=== PATIENT | male | born 1950 | race Caucasian/White ===

== ENCOUNTER → 2018-12-22 | Outpatient (CLI) | payer MEDICARE ==
--- NOTE | 2018-12-22 10:22 | CT ---
EXAMINATION TYPE: CT angio neck DATE OF EXAM: 12/22/2018 HISTORY: Occlusion and stenosis of unspecified carotid COMPARISON: None CT DLP: 467 mGycm. Automated Exposure Control for Dose Reduction was Utilized. TECHNIQUE: CTA scan of the neck is performed with IV Contrast, patient injected with 65 mL of Isovue 370, axial images are obtained, coronal and sagittal reformatted images are reviewed. Three-D recons tructed images are created on an independent workstation and reviewed. FINDINGS: Diffuse atherosclerotic plaque involving the aortic arch and origins of the great vessels w ith mild changes seen at the origin of the left common carotid artery. [id number] plaque involv ing the brachiocephalic artery. There is approximate 70% stenosis of the left subclavian artery proxi mal to the vertebral artery origin Right carotid artery mild atherosclerotic plaque in the common carotid artery. There is an approximat e 65-70% stenosis involving the right carotid bulb and approximately 80% focal stenosis involving the proximal right ICA. Left carotid artery: There is significant atherosclerotic plaque of the distal left common carotid ar minna with a suspected stenosis of 70-80% proximal to the carotid bulb. At the level the carotid bulb there is severe atherosclerotic changes with greater than 80% stenosis. There is multilevel degenerative disc disease and hypertrophic changes of the spine. Multilevel facet arthropathy and posterior spondylosis. Multilevel foraminal encroachment. Thyroid enhances normally. Sternotomy wires are seen. Lung apices are clear. Left-sided cardiac devic e is seen. IMPRESSION: 1. Approximately 70-80% stenosis of the distal left common carotid artery. 2. Severe atherosclerotic change involving the left carotid bulb and bifurcation including the left p roximal ICA with a greater stenosis measuring greater than 80% compatible severe stenosis. 3. There is an approximate 65-70% stenosis involving the right carotid bulb and approximately 80% foc al stenosis involving the proximal right ICA. 4. Approximately 70% stenosis of the proximal left subclavian artery.
== END | disposition home or self-care (01) ==
LOC: RADCTMAIN 07:50
PROVIDERS: ATTEND Internal Medicine Pulmonary Disease
DX: I65.23 Occlusion and stenosis of bilateral carotid arteries (principal)
CPT/HCPCS: 82565; 84520; 70498; Q9967

== ENCOUNTER → 2019-07-10 | Outpatient (CLI) | payer MEDICARE ==
[2019-07-10 17:38] LABS: Chol/HDL Ratio 1.77; Cholesterol 129 mg/dL (0-200); Triglycerides <50.0 mg/dL (0.0-149.0); VLDL Calculation 9.98 mg/dL (5.00-40.00)
== END | disposition home or self-care (01) ==
LOC: LABWHC1 08:00
PROVIDERS: ATTEND Internal Medicine Clinical Cardiac Electrophysiology
DX: I65.29 Occlusion and stenosis of unspecified carotid artery (principal)
CPT/HCPCS: 36415; 80061

== ENCOUNTER → 2020-10-07 | Outpatient (CLI) | payer MEDICARE ==
[2020-10-07 08:21] LABS: HCT 46.6 % (39.0-53.0); HGB 15.1 gm/dL (13.0-17.5); MCH 33.3 pg (25.0-35.0); MCHC 32.4 g/dL (31.0-37.0); MCV 102.7 fL (80.0-100.0); Macrocytosis Slight; Platelet Count 203 k/uL (150-450); RBC 4.54 m/uL (4.30-5.90); RDW 12.5 % (11.5-15.5); WBC 7.8 k/uL (3.8-10.6)
[2020-10-07 08:39] LABS: Potassium 4.8 mmol/L (3.5-5.1)
== END | disposition home or self-care (01) ==
LOC: LABPAT 07:43
PROVIDERS: ATTEND Internal Medicine Interventional Cardiology
DX: Z01.818 Encounter for other preprocedural examination (principal); I25.5 Ischemic cardiomyopathy
CPT/HCPCS: 36415; 80051; 82565; 84520; 85027

== ENCOUNTER 2020-10-13 06:23 | Day surgery (SDC) | payer MEDICARE ==
[2020-10-10 11:07] VITALS: BMI 31.4
[~2020-10-13 06:23] MED LIST: ALPRAZolam 0.25 MG TAB PO PRN; ALPRAZolam 0.5 MG TAB PO PRN; ASPIRIN 325 MG TAB PO STA; NITROGLYCERIN SL TABS 0.4 MG TAB SUBLINGUAL PRN; SODIUM CHLORIDE 0.9% 1,000 ML in EMPTY BAG 1 BAG IV ONE
[2020-10-13] MEDS ORDERED: ASPIRIN 81 MG ONE (06:38)
[2020-10-13] MEDS ORDERED: SODIUM CHLORIDE 0.9% 1,000 ML IV ONE (06:41)
[2020-10-13 06:57] VITALS: RESP 16; TEMP 97.9
[2020-10-13] MEDS ORDERED: LIDOCAINE 1% INJ 10MG/ML (20 ML MDV) ONE (07:15)
[2020-10-13] MEDS ORDERED: fentaNYL (PF) 50 MCG/ML 2 ML AMP IV ONE (07:45)
[2020-10-13] MEDS ORDERED: LIDOCAINE 1% INJ 10MG/ML (20 ML MDV) SQ ONE (07:47)
[2020-10-13] MEDS ORDERED: IOPAMIDOL-370 100ML BTL INJ ONE (08:14)
[2020-10-13] MEDS ORDERED: IOPAMIDOL-370 125ML BTL INJ ONE (08:14)
[2020-10-13] MEDS ORDERED: RX INFO: IV CONTRAST WAS GIVEN 1 EACH MISC MISCELLANE PRN (08:32)
[2020-10-13] MEDS ORDERED: NON FORMULARY DRUG (Omalizumab 150 MG Vial) SQ SCH (08:45)
[2020-10-13] MEDS ORDERED: SODIUM CHLORIDE 0.9% 1,000 ML IV SCH (08:45)
--- NOTE | 2020-10-13 09:07 | CC ---
CARDIAC CATHETERIZATION REPORT Mr. Childers is a 70-year-old male with known history of coronary artery disease, status post coronary artery bypass grafting, history of cardiomyopathy who has been complaining of episode of jaw discomfort with activity, was evaluated by Dr. Orozco, recommendation made regarding cardiac catheterization. The procedures, risks, and complication were discussed with the patient who is in full understanding and agreement. PROCEDURE: Patient was brought to malthouse laborer in a fasting semi-sedated state after receiving fentanyl and Benadryl and using Xylocaine anesthesia and Seldinger technique, a 6- Moroccan sheath was introduced in the right femoral artery. Selective right and left coronary angiography performed using 6-Moroccan right and left De catheter, multiple views of the coronary artery including hemiaxial views were obtained. The right De was used to cannulate the radial bypass as well as saphenous vein graft. Subsequently an ASHLEE catheter was introduced and the images of the HUGHES were obtained. The left De was used to cross the aortic valve and left ventricular end- diastolic pressure was calculated. following that catheter and sheath were removed. Hemostasis was obtained with compression of the right groin. There was no immediate complication. Patient was returned to his room in stable condition. FINDINGS: 1. FLUOROSCOPY: There was severe calcification involving all the coronary arteries. 2. LEFT MAIN: This is a large-sized vessel, bifurcating into left circumflex, left anterior descending artery. Left main coronary artery has 20% to 30% plaque distally. The rest of the vessel has no high-grade stenosis. 3. LEFT ANTERIOR DESCENDING ARTERY: This vessel is totally occluded proximally with no antegrade flow. The vessel is heavily calcified. 4. LEFT CIRCUMFLEX: This is a nondominant vessel. The AV groove left circumflex is patent. The obtuse marginal branch is totally occluded. The left circumflex gives collaterals to the right PDA. 5. RIGHT CORONARY ARTERY: The right coronary artery is totally occluded proximally. 6. HUGHES TO THE DIAGONAL BRANCH: The distal anastomotic site is patent. The flow into the diagonal branch is brisk. There is retrograde flow into the LAD. 7. SAPHENOUS VEIN GRAFT TO THE OBTUSE MARGINAL BRANCH: The proximal distal anastomotic sites are patent. The flow into the high obtuse marginal branch is brisk. There is retrograde flow into the second and third obtuse marginal branch. The stented segment in the proximal vessel is patent. There is a mild plaque of 20% to 30%. The rest of the vessel has no high-grade stenosis. 8. SAPHENOUS VEIN GRAFT TO THE RIGHT CORONARY ARTERY: This graft is totally occluded proximally. 9. RADIAL BYPASS TO THE LAD: The caliber of the graft is very small and there is minimal antegrade flow. 10.HEMODYNAMICS: There was no gradient across the aortic valve. The left ventricular end-diastolic pressure was 16 to 18 mmHg. 11.Right common femoral artery angiography revealed a total occlusion of the SFA. CONCLUSION: 1. Heavily calcified coronary artery. 2. Chronically occluded LAD and right coronary artery as well as s obtuse marginal branch. 3. Patent HUGHES to the diagonal. 4. Patent saphenous vein graft to the obtuse marginal branch. 5. Totally occluded saphenous vein graft to the right coronary artery. 6. Atretic radial bypass to the LAD. 7. Peripheral vascular disease. RECOMMENDATION: At this time, I see no evidence of significant progression of disease compared with the images obtained in 2014. Maximize his medical therapy. If he continues to have symptoms, then he should be evaluated for a high risk revascularization of a chronically occluded LAD. I have discussed those findings and recommendation with the patient and his family and they are in full understanding and agreement. Duration of the sedation is 43 minutes. MMODL / IJN: [id number] / MTDManish
[2020-10-13] MEDS ORDERED: MAGNESIUM OXIDE 400 MG TAB PO SCH (12:00)
[2020-10-13] MEDS ORDERED: METOPROLOL SUCCINATE (ER) 25 MG TAB.ER.24H PO SCH (12:00)
[2020-10-13] MEDS ORDERED: TAMSULOSIN 0.4 MG CAP.ER.24H PO SCH (13:30)
[2020-10-13 16:03] VITALS: BP 152/78; PULSE 56
[2020-10-13] MEDS ORDERED: BUDESONIDE 0.5 MG/2 ML NEBU INHALATION SCH (20:00)
[2020-10-13] MEDS ORDERED: IPRATROPIUM-ALBUTEROL 3 ML NEB INHALATION SCH (20:00)
[2020-10-13] MEDS ORDERED: traMADol 50 MG TAB PO SCH (21:00)
[2020-10-13] MEDS ORDERED: ATORVASTATIN 80 MG TAB PO SCH (21:00)
[2020-10-13] MEDS ORDERED: MONTELUKAST 10 MG TAB PO SCH (21:00)
[2020-10-14] MEDS ORDERED: SPIRONOLACTONE 25 MG TAB PO SCH (09:00)
[2020-10-14] MEDS ORDERED: ISOSORBIDE MONONITRATE ER 60 MG TAB.ER.24H PO SCH (09:00)
[2020-10-14] MEDS ORDERED: CLOPIDOGREL 75 MG TAB PO SCH (09:00)
[2020-10-14] MEDS ORDERED: ASPIRIN 81 MG PO SCH (09:00)
== END 2020-10-13 16:03 | disposition home or self-care (01) ==
LOC: CATHCVL 06:23
PROVIDERS: ATTEND Internal Medicine Interventional Cardiology
DX: I25.700 Atherosclerosis of coronary artery bypass graft(s), unspecified, with unstable angina pectoris (principal); I25.110 Atherosclerotic heart disease of native coronary artery with unstable angina pectoris; I25.82 Chronic total occlusion of coronary artery; I70.92 Chronic total occlusion of artery of the extremities; I70.201 Unspecified atherosclerosis of native arteries of extremities, right leg; I25.5 Ischemic cardiomyopathy; I10 Essential (primary) hypertension; I25.2 Old myocardial infarction; E78.00 Pure hypercholesterolemia, unspecified; J44.9 Chronic obstructive pulmonary disease, unspecified; I65.23 Occlusion and stenosis of bilateral carotid arteries; E78.5 Hyperlipidemia, unspecified; I44.7 Left bundle-branch block, unspecified; E66.3 Overweight; Z95.1 Presence of aortocoronary bypass graft; Z95.810 Presence of automatic (implantable) cardiac defibrillator; Z72.0 Tobacco use; Z79.899 Other long term (current) drug therapy; Z79.51 Long term (current) use of inhaled steroids; Z79.1 Long term (current) use of non-steroidal anti-inflammatories (NSAID); Z79.82 Long term (current) use of aspirin; Z79.02 Long term (current) use of antithrombotics/antiplatelets; Z68.31 Body mass index [BMI] 31.0-31.9, adult; Z82.49 Family history of ischemic heart disease and other diseases of the circulatory system
CPT/HCPCS: 93459; C1769 ×2; C1894; J2001; J3010; Q9967 ×2

== ENCOUNTER → 2021-02-04 | Outpatient (CLI) | payer MEDICARE ==
[2021-02-04 10:33] LABS: HCT 43.3 % (39.0-53.0); HGB 14.5 gm/dL (13.0-17.5); MCH 34.4 pg (25.0-35.0); MCHC 33.6 g/dL (31.0-37.0); MCV 102.3 fL (80.0-100.0); Macrocytosis Slight; Mean Platelet Volume 8.1; Platelet Count 174 k/uL (150-450); RBC 4.23 m/uL (4.30-5.90); RDW 12.6 % (11.5-15.5); WBC 7.2 k/uL (3.8-10.6)
[2021-02-04 10:51] LABS: Potassium 4.7 mmol/L (3.5-5.1)
== END | disposition home or self-care (01) ==
LOC: LABPAT 09:53
PROVIDERS: ATTEND Internal Medicine Interventional Cardiology
DX: Z01.818 Encounter for other preprocedural examination (principal); I70.213 Atherosclerosis of native arteries of extremities with intermittent claudication, bilateral legs
CPT/HCPCS: 36415; 80051; 82565; 84520; 85027

== ENCOUNTER 2021-02-12 07:56 | Day surgery (SDC) | payer MEDICARE ==
[2021-02-06 16:00] VITALS: BMI 31.4
[~2021-02-12 07:56] MED LIST changes: -ALPRAZolam 0.5 MG TAB PO PRN; +ASPIRIN 325 MG TAB PO PRN; -ASPIRIN 325 MG TAB PO STA; -NITROGLYCERIN SL TABS 0.4 MG TAB SUBLINGUAL PRN
[2021-02-12 08:14] VITALS: RESP 18; TEMP 98
[2021-02-12] MEDS ORDERED: MIDAZOLAM 2 MG/2 ML VIAL IVP ONE (09:01)
[2021-02-12] MEDS ORDERED: LIDOCAINE 1% INJ 10MG/ML (20 ML MDV) SQ ONE (09:01)
[2021-02-12] MEDS ORDERED: IOPAMIDOL-250 100ML BTL INTRAARTER ONE (09:14)
[2021-02-12] MEDS ORDERED: SODIUM CHLORIDE 0.9% 1,000 ML IV SCH (09:30)
--- NOTE | 2021-02-12 09:42 | IR ---
EXAMINATION TYPE: IR angio abdominal w runoff DATE OF EXAM: 02/12/2021 CLINICAL HISTORY: Leg pain. Peripheral vascular disease TECHNIQUE: Fluoroscopy. COMPARISON: None. FINDINGS: Fluoroscopic guidance was provided during abdominal angiogram with runoff procedure perfor med by Dr. Jay. A total of 1.9 minutes of fluoroscopic time was utilized during the procedure and 1 38 spot images was acquired. Images acquired show access through right groin with subsequent angiogra m and runoff. Please refer to procedure note for further details. IMPRESSION: As Above.
[2021-02-12 16:32] VITALS: BP 122/62; PULSE 56
--- NOTE | 2021-02-12 21:05 | AN ---
ANGIOGRAPHY REPORT DATE OF SERVICE: 02/12/2021 PERFORMING PHYSICIAN: Gabe Jay M.D. PROCEDURES PERFORMED: 1. Abdominal aortogram. 2. Bilateral lower extremity runoff. INDICATION: Severe bilateral lower extremity intermittent claudication. COMPLICATIONS: None. LEVEL OF SEDATION: Moderate, with sedation length of 15 minutes. PROCEDURE DESCRIPTION: After obtaining informed consent, the patient was brought to the cardiac slab depiler operator. The right common femoral artery was cannulated using micropuncture technique. The micropuncture wire passed easily. Then I placed a 5-Uzbek sheath at the right radial artery. After that I did an abdominal aortogram and bilateral lower extremity runoff using 5- Uzbek pigtail catheter which was initially placed at the level of the renal artery, then it was pulled into above the bifurcation of the aorta to right and left common iliac arteries. The procedure was completed without any complication. SELECTIVE PERIPHERAL ANGIOGRAM: 1. The aorta is angiographically normal. 2. Common iliac arteries. Both appeared to be angiographically normal. 3. Internal iliac arteries. Both appeared to be patent. 4. External iliac arteries. Both appeared to be angiographically normal. 5. Common femoral arteries. Both appeared to be extremely calcified with intermediate disease at the right common femoral artery and severe disease involving the left common femoral artery. 6. Profundae. The right profunda appeared to have a plaque in its ostium that appeared to be significant. The left profunda appeared to have mild disease only. 7. SFA. The right SFA is occluded by the ostium and reconstitutes distally. The left SFA appeared to have heavy plaque in the proximal portion. 8. Popliteals. Both popliteals appeared to have diffuse moderate disease. 9. Below the knee. There is 3-vessel runoff below the knee bilaterally. CONCLUSION: 1. Mild aortoiliac disease. 2. Severe femoropopliteal disease with severe disease involving the right profunda and occluded right SFA and also severe disease involving the left SFA. 3. Three-vessel runoff below the knee bilaterally. POST-PROCEDURE MANAGEMENT: 1. The patient is going to be discharged home. 2. Follow up with the patient. MMODL / IJN: [id number] /
== END 2021-02-12 16:38 | disposition home or self-care (01) ==
LOC: CATHCVL 07:56
PROVIDERS: ATTEND Internal Medicine Interventional Cardiology
DX: I70.213 Atherosclerosis of native arteries of extremities with intermittent claudication, bilateral legs (principal); I10 Essential (primary) hypertension; E78.5 Hyperlipidemia, unspecified; I25.10 Atherosclerotic heart disease of native coronary artery without angina pectoris; I65.23 Occlusion and stenosis of bilateral carotid arteries; I49.01 Ventricular fibrillation; I25.5 Ischemic cardiomyopathy; I44.7 Left bundle-branch block, unspecified; Z95.1 Presence of aortocoronary bypass graft; Z95.810 Presence of automatic (implantable) cardiac defibrillator; Z82.49 Family history of ischemic heart disease and other diseases of the circulatory system; Z87.891 Personal history of nicotine dependence; Z79.899 Other long term (current) drug therapy; Z79.82 Long term (current) use of aspirin; Z20.822 Contact with and (suspected) exposure to COVID-19
CPT/HCPCS: 75625; 36200; 75716; 87635; C1769 ×3; C1894; J2250; J2001; Q9966

== ENCOUNTER 2021-03-04 13:03 | Day surgery (SDC) | payer MEDICARE ==
[2021-02-27 15:40] VITALS: BMI 31.4
[~2021-03-04 13:03] MED LIST changes: +HEPARIN SODIUM,PORCINE 10,000 UNIT in SODIUM CHLORIDE 0.9% 1,000 ML IRRIGATION PRN; +HEPARIN SODIUM,PORCINE 2,500 UNIT in SODIUM CHLORIDE 0.9% 250 ML IRRIGATION PRN; +ZOLPIDEM 5 MG TAB PO PRN
[2021-03-04] MEDS ORDERED: MIDAZOLAM 2 MG/2 ML VIAL IVP ONE (14:13)
[2021-03-04] MEDS ORDERED: LIDOCAINE 1% INJ 10MG/ML (20 ML MDV) SQ ONE (14:24)
[2021-03-04] MEDS: MIDAZOLAM 2 MG/2 ML VIAL IVP ONE ×2 (14:27→15:08)
[2021-03-04] MEDS ORDERED: HEPARIN SODIUM 1,000 UN/ML (10ML VL) IVP ONE (14:42)
[2021-03-04] MEDS: niCARdipine Syringe (1,000 mcg/10 mL) INTRAARTER ONE ×3 (15:19→15:34)
[2021-03-04] MEDS ORDERED: NITROGLYCERIN 1000MCG/10ML SYRINGE INTRAARTER ONE (15:33)
[2021-03-04] MEDS ORDERED: CLOPIDOGREL 75 MG TAB PO ONE (15:50)
[2021-03-04] MEDS ORDERED: IOPAMIDOL-250 100ML BTL INTRAARTER ONE ×2 (15:58)
[2021-03-04] MEDS ORDERED: NON FORMULARY DRUG (Omalizumab 150 MG Vial) SQ SCH (16:00)
[2021-03-04] MEDS ORDERED: SODIUM CHLORIDE 0.9% 1,000 ML in EMPTY BAG 1 BAG IV SCH (16:00)
[2021-03-04] MEDS ORDERED: fentaNYL (PF) 50 MCG/ML 2 ML AMP IV ONE (16:04)
[2021-03-04 20:28] VITALS: RESP 17
[2021-03-04] MEDS: IPRATROPIUM-ALBUTEROL 3 ML NEB INHALATION SCH (20:57)
[2021-03-04] MEDS: BUDESONIDE 0.5 MG/2 ML NEBU INHALATION SCH (20:57)
[2021-03-04] MEDS ORDERED: traMADol 50 MG TAB PO SCH (21:00)
[2021-03-04] MEDS ORDERED: SACUBITRIL/VALSARTAN 24 MG-26 MG TABLET PO SCH (21:00)
[2021-03-04] MEDS ORDERED: ATORVASTATIN 80 MG TAB PO SCH (21:00)
[2021-03-04] MEDS ORDERED: MONTELUKAST 10 MG TAB PO SCH (21:00)
--- NOTE | 2021-03-04 23:16 | AN ---
ANGIOGRAPHY REPORT DATE OF SERVICE: March 04, 2021 PERFORMING PHYSICIAN: Gabe Jay MD. PROCEDURE PERFORMED: 1. Atherectomy of the left SFA using the orbital atherectomy device and using 2 mm jimmy. 2. Successful balloon angioplasty of the left SFA using initially a 5.0 x 40 mm Chocolate balloon and subsequently 7.0 x 40 mm drug-coated balloon. 3. Selective left common femoral artery and left SFA angiogram. 4. Selective right common femoral artery angiogram. 5. Ultrasound-guided access of the right common femoral artery. INDICATION: This is a 70-year-old gentleman who sees Dr. Orozco in the office as an outpatient with history of peripheral arterial disease who was experiencing bilateral lower extremities intermittent claudication and underwent an angiogram recently and that revealed occluded right SFA and severe disease involving the left SFA. He was brought today to undergo an intervention on the left SFA. APPROACH: Right common femoral artery. COMPLICATION: None. LEVEL OF SEDATION: Moderate with sedation length of 75 minutes. PROCEDURE DESCRIPTION: After obtaining an informed consent, the patient was brought to the cardiac car barn laborer. The right common femoral artery was cannulated using micropuncture technique and a micropuncture wire passed easily. Then I placed a 6-Montenegrin 70 cm Raabe sheath at the right common femoral artery. Please note that I did predilatation using 5 Montenegrin dilator and subsequently 7-Montenegrin dilator. At that point, anticoagulation was initiated using heparin with continuous ACT monitoring throughout the procedure. The patient was given a total of 8000 units of heparin IV. Subsequently, I did select the right SFA using 0.035 stiff Glidewire with the backup support of 5-Montenegrin RIM catheter and then I advanced the long sheath over the wire and the catheter all the way to the proximal left common femoral artery. After that, I did selective left SFA and left common femoral artery angiogram. That revealed extremely calcified profunda and left common femoral artery was occluded left SFA. Crossing the SFA was performed using a 0.018 gold tip glidewire with backup support of 0.018 CXI guide catheter. I proved that I was in the true lumen by injecting contrast via the catheter. After that, I did change my wire which was 018 nicole tip Glidewire into 014 ViperWire preparing for atherectomy using the OM8 catheter. After that I did atherectomy of the left SFA using the orbital atherectomy device from [facility] and using 4 runs at the low, medium, and 2 under high speed. After that I did balloon angioplasty of the left SFA using initially 5 mm Chocolate balloon and subsequently 7 mm drug-coated balloon. The final angiogram showed good angiographic results. After that I did exchange my long sheath into short sheath using 0.035 stiff Amplatzer wire. After that, I did place the 6-Montenegrin 11 cm sheath at the right common femoral artery. At that point, I did selective right common femoral artery angiogram. The procedure was completed without any complication. POSTPROCEDURE MANAGEMENT: 1. Dual anti-platelet therapy. 2. Risk factor modifications. 3. Follow up with the patient. MMHELENAL / IJN: [id number] /
[2021-03-05 00:16] VITALS: TEMP 98
[2021-03-05 03:33] VITALS: BP 111/71
[2021-03-05] MEDS: IPRATROPIUM-ALBUTEROL 3 ML NEB INHALATION SCH (07:52)
[2021-03-05] MEDS: BUDESONIDE 0.5 MG/2 ML NEBU INHALATION SCH (07:52)
[2021-03-05 08:06] VITALS: PULSE 74
[2021-03-05 08:49] LABS: Basophils % (A) 1 %; Eosinophils # (A) 0.1 k/uL (0-0.7); Eosinophils % (A) 1 %; HCT 46.3 % (39.0-53.0); HGB 15.1 gm/dL (13.0-17.5); Lymphocytes # (A) 1.3 k/uL (1.0-4.8); Lymphocytes % (A) 15 %; MCH 33.5 pg (25.0-35.0); MCHC 32.6 g/dL (31.0-37.0); MCV 102.7 fL (80.0-100.0); Macrocytosis Slight; Mean Platelet Volume 8.2; Monocytes # (A) 0.7 k/uL (0-1.0); Monocytes % (A) 8 %; Neutrophils # (A) 6.4 k/uL (1.3-7.7); Neutrophils % (A) 72 %; Platelet Count 189 k/uL (150-450); RDW 12.7 % (11.5-15.5); WBC 8.9 k/uL (3.8-10.6)
[2021-03-05] MEDS ORDERED: MULTIVITAMINS, THERA 1 EACH TAB PO SCH (09:00)
[2021-03-05] MEDS ORDERED: SPIRONOLACTONE 25 MG TAB PO SCH (09:00)
[2021-03-05] MEDS ORDERED: ASPIRIN 81 MG PO SCH (09:00)
[2021-03-05 09:03] LABS: African American GFR (CKD) >90 (>60 ml/min/1.73 sqM); Anion Gap 7 mmol/L; Blood Urea Nitrogen 17 mg/dL (9-20); Carbon Dioxide 22 mmol/L (22-30); Chloride 109 mmol/L (98-107); Glucose 85 mg/dL (74-99); Non-African American GFR(CKD) 87 (>60 ml/min/1.73 sqM); Potassium 4.7 mmol/L (3.5-5.1); Sodium 138 mmol/L (137-145)
--- NOTE | 2021-03-05 10:16 | DS ---
DISCHARGE SUMMARY DATE OF ADMISSION: 03/04/2021 DATE OF DISCHARGE: 03/05/2021 BRIEF HISTORY: This is a 70-year-old gentleman who underwent yesterday successful angioplasty of the left superficial femoral artery in the proximal portion from right groin approach. He was seen this morning. The right groin is soft and nontender and without any bruises. The patient needs to undergo a HEAT TREATER APPRENTICE of the right SFA which is chronically occluded in a long segment that extends from ostium all the way to the popliteal. The patient is going to followup with Dr. Orozco, his primary administrative services coordinator, in the office in a week. MMODL / IJN: [id number] /
[2021-03-05] MEDS ORDERED: MAGNESIUM OXIDE 400 MG TAB PO SCH (12:00)
[2021-03-05] MEDS ORDERED: METOPROLOL SUCCINATE (ER) 25 MG TAB.ER.24H PO SCH (12:00)
[2021-03-05] MEDS ORDERED: TAMSULOSIN 0.4 MG CAP.ER.24H PO SCH (13:30)
--- NOTE | 2021-03-05 15:52 | IR ---
EXAMINATION TYPE: IR mud analysis well logging captain femoral popliteal DATE OF EXAM: 03/04/2021 COMPARISON: NONE HISTORY: Fluoroscopy time. Fluoroscopy was provided to the referring clinician.
[2021-03-05] MEDS ORDERED: CLOPIDOGREL 75 MG TAB PO SCH (21:00)
--- NOTE | 2021-03-10 11:16 | CDI ---
Outpatient Documentation Clarification Form Date: 03/10/21 [facility] Name: Michaela Nation Phone: If any questions, call Beatriz Ye Dictaphone Typist at [phone] Patient Name: Cornelio Childers Admit Date: 03/04/21 Discharge Date; 03/05/21 ATTENTION: The [facility] Coding Staff appreciate your assistance in clarifying documentation. Please respond to the clarification below the line at the bottom and electronically sign. The [facility] Coding staff with review the response and follow-up if needed Please Note: Queries are made part of the Legal Health Record. If you have any questions, please contact the Dictaphone Typist. Dear Dr. Jay, Please provide clarification as to the cause of the occlusive PAD. PAD/PVD are considered unspecified. Greatest specificity is required for medical necessity support Is underlying cause of the occlusive PAD one of the following? Arteriosclerotic disease of the arteries Arteritis Necrotic Due to embolism/thrombosis Other - Please specify below Thank you for your kind consideration, MTDD
== END 2021-03-05 09:11 | disposition home or self-care (01) ==
LOC: CATHCVL 13:03 → 3SCARD 17:25 → CATHCVL 03-05 09:11
PROVIDERS: ATTEND Internal Medicine Interventional Cardiology
DX: I70.203 Unspecified atherosclerosis of native arteries of extremities, bilateral legs (principal); I25.5 Ischemic cardiomyopathy; J44.9 Chronic obstructive pulmonary disease, unspecified; Z95.810 Presence of automatic (implantable) cardiac defibrillator; I65.23 Occlusion and stenosis of bilateral carotid arteries; Z20.822 Contact with and (suspected) exposure to COVID-19; I10 Essential (primary) hypertension; E78.5 Hyperlipidemia, unspecified; Z95.1 Presence of aortocoronary bypass graft; Z82.49 Family history of ischemic heart disease and other diseases of the circulatory system; Z87.891 Personal history of nicotine dependence; Z79.02 Long term (current) use of antithrombotics/antiplatelets; Z79.82 Long term (current) use of aspirin; Z79.51 Long term (current) use of inhaled steroids; Z79.899 Other long term (current) drug therapy
CPT/HCPCS: 94640 ×2; 37225; 80048; 85025; 87635; C1769 ×9; C1894 ×2; C1714; J2250; J2001; J3010; J1644; Q9966

== ENCOUNTER 2021-03-20 17:20 | Observation (INO) | payer MEDICARE ==
--- NOTE | 2021-03-20 18:39 | ED ---
General Adult HPI - General Chief complaint: Recheck/Abnormal Lab/Rx Stated complaint: Internal bleeding Time Seen by Provider: 03/20/21 17:57 Source: patient, RN/MD, RN notes reviewed Mode of arrival: ambulatory Limitations: no limitations - History of Present Illness Initial comments: Patient is a pleasant 70-year-old males presenting to the emergency department with right inguinal hematoma. Patient was seen by Dr. Jay earlier today who did call. Patient had a procedure done opening of left-sided superficial femoral artery a couple of weeks ago. Entrance was right inguinal region. Patient had follow-up [address] Jay ordered ultrasound. Results today concerning for pseudoaneurysm on the right. Patient states no significant disc omfort. No chest pain or dyspnea. - Related Data Home Medications Medication Instructions Recorded Confirmed Ipratropium-Albuterol Nebulize 3 ml INHALATION RT-QID PRN 07/10/14 03/20/21 [Duoneb 0.5 mg-3 mg/3 ml Soln] Nitroglycerin Sl Tabs [Nitrostat] 0.4 mg SL DIRECTED PRN 07/10/14 03/20/21 Omalizumab [Xolair] 300 mg SQ Q28D 07/10/14 03/20/21 Tamsulosin HCl 0.4 mg PO DAILY 07/10/14 03/20/21 traMADol HCl [Ultram] 50 mg PO BID 07/10/14 03/20/21 Budesonide [Pulmicort] 0.5 mg INHALATION RT-BID 06/16/16 03/20/21 Spironolactone [Aldactone] 25 mg PO DAILY 06/16/16 03/20/21 Zafirlukast [Accolate] 20 mg PO BID 06/16/16 03/20/21 Clopidogrel [Plavix] 75 mg PO DAILY 10/10/20 03/20/21 Magnesium Oxide 400 mg PO DAILY 10/10/20 03/20/21 Metoprolol Succinate [Toprol XL] 50 mg PO BID 10/10/20 03/20/21 Multivitamins, Thera [Multivitamin 1 tab PO DAILY 02/06/21 03/20/21 (formulary)] Sacubitril/Valsartan [Entresto 24 1 tab PO BID 02/06/21 03/20/21 mg-26 mg Tablet] Aspirin EC [Ecotrin Low Dose] 81 mg PO DAILY 03/20/21 03/20/21 Atorvastatin Calcium [Lipitor] 80 mg PO DAILY 03/20/21 03/20/21 Allergies Allergy/AdvReac Type Severity Reaction Status Date / Time No Known Allergies Allergy Verified 03/20/21 18:35 Review of Systems ROS Statement: Those systems with pertinent positive or pertinent negative responses have been documented in the HPI. ROS Other: All systems not noted in ROS Statement are negative. Constitutional: Denies: fever Eyes: Denies: eye pain ENT: Denies: ear pain Respiratory: Denies: cough Cardiovascular: Denies: chest pain Endocrine: Denies: fatigue Gastrointestinal: Denies: abdominal pain Genitourinary: Denies: dysuria Musculoskeletal: Denies: back pain Skin: Reports: as per HPI Neurological: Denies: headache Past Medical History Past Medical History: Coronary Artery Disease (CAD), Cancer, Chest Pain / Angina, COPD, Hyperlipidemia, Hypertension, Myocardial Infarction (non Q-wave), Prostate Disorder, Sleep Apnea/CPAP/BIPAP Additional Past Medical History / Comment(s): PAST CARDIAC ARREST X3. CMP - HAS DUAL AICD. SEE H&P. HX SKIN BASAL CELL CA ON BACK. HAS HX KIDNEY STONES. BPH. Last Myocardial Infarction Date:: 2010 History of Any Multi-Drug Resistant Organisms: None Reported Past Surgical History: AICD, Coronary Bypass/CABG, Heart Catheterization With Stent, Hernia Repair, Orthopedic Surgery, Pacemaker Additional Past Surgical History / Comment(s): Hip Surgery, 1969. LT INGUINAL HERNIA. LT ARM SX, HAS METAL PALLAVI INSIDE D/T VEIN HARVESTING. LT ELBOW SX(BURSA). STENTS X3, LAST 2006. QUAD CABG 2004. DUAL AICD 2008, & REWIRED 2009 - [facility]. TRAUMATIC AMP RT MIDDLE FINGERTIP. Past Anesthesia/Blood Transfusion Reactions: No Reported Reaction Date of Last Stent Placement:: 2006 Type of Cardiac Device: Permanent Pacemaker, AICD Device Placement Date:: 2009 Past Psychological History: No Psychological Hx Reported Smoking Status: Former smoker Past Alcohol Use History: None Reported Past Drug Use History: None Reported - Past Family History Father Family Medical History: Myocardial Infarction ([place]) Additional Family Medical History / Comment(s): DAD AT AGE 72- [place] Mother Family Medical History: No Reported History Additional Family Medical History / Comment(s): MOM IS 91 YEARS OLD HX UNK General Exam Limitations: no limitations General appearance: alert, in no apparent distress Head exam: Present: normocephalic Eye exam: Present: normal appearance Respiratory exam: Present: normal lung sounds bilaterally Cardiovascular Exam: Present: regular rate, normal rhythm GI/Abdominal exam: Present: soft. Absent: tenderness exam: Present: other (Right inguinal hematoma and swelling, nontender) Extremities exam: Present: normal inspection Neurological exam: Present: alert Psychiatric exam: Present: normal affect, normal mood Skin exam: Present: normal color Course Vital Signs 03/20/21 17:29 Temperature 97.5 F L Pulse Rate 66 Respiratory 18 Rate Blood Pressure 127/65 O2 Sat by Pulse 96 Oximetry - Reevaluation(s) Reevaluation #1: 03/20/21 18:37 Case was discussed with Dr. Jay who would like patient to stay in the hospital with interventional radiology consult for pseudoaneurysm. Attempt was made to contact interventionalist however we are told there is nobody supervisor blood donor recruiters. 03/20/21 19:[address] Gastelum is available tomorrow. Case was also discussed with Dr. Sommers, who will admit covered for Dr. Naylor. Disposition Clinical Impression: Pseudoaneurysm Disposition: ADMITTED IP TO THIS HOSP Is patient prescribed a controlled substance at d/c from ED?: No Referrals: Nahid Naylor MD [Primary Care Provider] - 1-2 days Decision Time: 19:00
[2021-03-20] MEDS ORDERED: NALOXONE 0.4 MG/ML 1 ML VIAL IV PRN (19:00)
[2021-03-20] MEDS ORDERED: SODIUM CHLORIDE 0.9% 1,000 ML IV SCH (19:00)
[2021-03-20 19:03] LABS: Basophils # (A) 0.1 k/uL (0-0.2); Basophils % (A) 1 %; Eosinophils # (A) 0.2 k/uL (0-0.7); Eosinophils % (A) 3 %; HCT 40.9 % (39.0-53.0); HGB 13.9 gm/dL (13.0-17.5); Lymphocytes # (A) 1.7 k/uL (1.0-4.8); Lymphocytes % (A) 25 %; MCHC 33.9 g/dL (31.0-37.0); MCV 100.3 fL (80.0-100.0); Mean Platelet Volume 7.6; Monocytes # (A) 0.4 k/uL (0-1.0); Monocytes % (A) 6 %; Neutrophils % (A) 60 %; Platelet Count 201 k/uL (150-450); RBC 4.08 m/uL (4.30-5.90); RDW 12.6 % (11.5-15.5); WBC 6.6 k/uL (3.8-10.6)
[2021-03-20 19:12] LABS: Albumin 3.6 g/dL (3.5-5.0); Calcium 8.9 mg/dL (8.4-10.2); Potassium 4.6 mmol/L (3.5-5.1); Total Bilirubin 0.4 mg/dL (0.2-1.3); Total Protein 6.6 g/dL (6.3-8.2)
[2021-03-20 19:14] LABS: INR 0.9 (<1.2); Partial Thromboplastin Time 22.4 sec (22.0-30.0); Prothrombin Time 10.2 sec (9.0-12.0)
[2021-03-21 08:27] VITALS: BP 129/77; PULSE 68; RESP 18; TEMP 98
--- NOTE | 2021-03-21 10:37 | US ---
EXAMINATION TYPE: US lower ext pseudo artery RT DATE OF EXAM: 03/21/2021 COMPARISON: NONE CLINICAL HISTORY: pseudoaneurysm. Patient states he had an ultrasound done at his Doctor's office on 03/18/21. He states they called him yesterday and told him to come to the hospital and that he had a pseudoaneurysm in his right groin. Heart cath was done about 2 weeks ago. EXAM PERFORMED: Grayscale and color Doppler duplex imaging performed of the groin, post cardiac belinda ter to assess for pseudoaneurysm. SIDE PERFORMED: Right Color and Waveform Doppler performed to assess for the presence of pseudoaneurysm; Is there ultrasound evidence of a pseudoaneurysm: No Is there evidence of AV shunting: No Is there a fluid collection present: No IMPRESSION: Limited scanning right groin. No evident pseudoaneurysm or arteriovenous fistula
[2021-03-21] MEDS ORDERED: IPRATROPIUM-ALBUTEROL 3 ML NEB INHALATION PRN (11:09)
[2021-03-21] MEDS ORDERED: METOPROLOL SUCCINATE (ER) 50 MG TAB.ER.24H PO SCH (11:15)
[2021-03-21] MEDS ORDERED: traMADol 50 MG TAB PO SCH (11:15)
[2021-03-21] MEDS ORDERED: ATORVASTATIN 80 MG TAB PO SCH (11:15)
[2021-03-21] MEDS ORDERED: SPIRONOLACTONE 25 MG TAB PO SCH (11:15)
[2021-03-21] MEDS ORDERED: TAMSULOSIN 0.4 MG CAP.ER.24H PO SCH (11:15)
[2021-03-21] MEDS ORDERED: SACUBITRIL/VALSARTAN 24 MG-26 MG TABLET PO SCH (11:15)
--- NOTE | 2021-03-21 12:10 | P.HPIM ---
History of Present Illness H&P Date: 03/21/21 (This document was of both his H&P and discharge summary) 70 years old male patient of Dr. Naylor with past medical history of coronary artery disease status post CABG back in 2004 with history of stenting of the saphenous vein graft to the left circumflex in 2005 with severe triple- vessel coronary artery disease managed medically with history as AICD, hypertension hyperlipidemia. Patient underwent cardiac cath 2 weeks ago and went for follow-up on Tuesday. Patient was noted to have significant groin pain for which an ultrasound of the right groin was done. Dr. Patel. Reviewed the ultrasound and noticed a 2 cm pseudoaneurysm involving the groin. Patient was sent to the hospital for evaluation. Repeat ultrasound was done in the hospital which was negative for aneurysm with possible thrombosis of the aneurysm. Cardiology has seen the patient has cleared the patient for saumya garrett. On assessment today patient denies any groin pain. He denies any chest pain, dizziness, palpitation, loss of balance or change in mental status. Vitals were reviewed patient temp 98 pulse 68 respiratory rate 18 blood pressure 129/77. Labs reviewed suggest hemoglobin of 13.9 WBC 6.6 platelets 2001. INR 0.9 CMP unremarkable coronavirus was undetected Review of Systems Constitutional: Denies chills, Denies fever, Denies lethargy, Denies malaise, Denies poor appetite, Denies weakness, Denies weight loss Eyes: denies decreased vision, denies diplopia, denies discharge, denies pain Ears: deny: decreased hearing Ears, nose, mouth and throat: Denies dental pain, Denies headache, Denies nasal discharge, Denies nose pain Cardiovascular: Denies chest pain, Denies decreased exercise tolerance, Denies edema, Denies high blood pressure, Denies irregular heart beat, Denies palpitations, Denies paroxysmal nocturnal dyspnea, Denies rapid heart beat, Denies shortness of breath Respiratory: Denies congestion, Denies cough, Denies cough with sputum, Denies dyspnea, Denies home oxygen, Denies wheezing Gastrointestinal: Denies abdominal pain, Denies change in bowel habits, Denies coffee ground emesis, Denies early satiety, Denies excessive gas, Denies heartbu rn, Denies hematemesis, Denies hematochezia, Denies loss of appetite, Denies nausea, Denies vomiting Genitourinary: Denies dysuria, Denies flank pain, Denies kidney stones, Denies menorrhagia, Denies urgency, Denies urinary frequency Musculoskeletal: Denies gait dysfunction, Denies limitation of motion, Denies morning stiffness, Denies muscle cramps Integumentary: Denies rash, Denies wounds, Denies brittle nails, Denies change in hair/nails, Denies darkening of skin Neurological: Denies balance difficulties, Denies change in speech, Denies double vision, Denies gait dysfunction, Denies loss of vision, Denies motor disturbance, Denies numbness, Denies paralysis, Denies paresthesias, Denies se izures Psychiatric: Denies anxiety, Denies depression Endocrine: Denies excessive sweating, Denies excessive thirst, Denies high blood sugars, Denies palpitations Hematologic/Lymphatic: Denies easy bruising, Denies lymphadenopathy Past Medical History Past Medical History: Coronary Artery Disease (CAD), Cancer, Chest Pain / Angina, COPD, Hyperlipidemia, Hypertension, Myocardial Infarction (non Q-wave), Prostate Disorder, Sleep Apnea/CPAP/BIPAP Additional Past Medical History / Comment(s): PAST CARDIAC ARREST X3. CMP - HAS DUAL AICD. SEE H&P. HX SKIN BASAL CELL CA ON BACK. HAS HX KIDNEY STONES. BPH. Last Myocardial Infarction Date:: 2010 History of Any Multi-Drug Resistant Organisms: None Reported Past Surgical History: AICD, Coronary Bypass/CABG, Heart Catheterization With Stent, Hernia Repair, Orthopedic Surgery, Pacemaker Additional Past Surgical History / Comment(s): Hip Surgery, 1969. LT INGUINAL HERNIA. LT ARM SX, HAS METAL PALLAVI INSIDE D/T VEIN HARVESTING. LT ELBOW SX(BURSA). STENTS X3, LAST 2006. QUAD CABG 2004. DUAL AICD 2008, & REWIRED [address] - [facility]. TRAUMATIC AMP RT MIDDLE FINGERTIP. Past Anesthesia/Blood Transfusion Reactions: No Reported Reaction Date of Last Stent Placement:: 2006 Type of Cardiac Device: Permanent Pacemaker, AICD Device Placement Date:: 2009 Past Psychological History: No Psychological Hx Reported Smoking Status: Former smoker Past Alcohol Use History: None Reported Additional Past Alcohol Use History / Comment(s): STARTED SMOKING AT AGE 18, SMOKED 1 PPD QUIT 1986 Past Drug Use History: None Reported - Past Family History Father Family Medical History: Myocardial Infarction ([place]) Additional Family Medical History / Comment(s): DAD AT AGE 72- [place] Mother Family Medical History: No Reported History Additional Family Medical History / Comment(s): MOM IS 91 YEARS OLD HX UNK Medications and Allergies Home Medications Medication Instructions Recorded Confirmed Type Ipratropium-Albuterol Nebulize 3 ml INHALATION RT-QID PRN 07/10/14 03/20/21 History [Duoneb 0.5 mg-3 mg/3 ml Soln] Nitroglycerin Sl Tabs [Nitrostat] 0.4 mg SL DIRECTED PRN 07/10/14 03/20/21 History Omalizumab [Xolair] 300 mg SQ Q28D 07/10/14 03/20/21 History Tamsulosin HCl 0.4 mg PO DAILY 07/10/14 03/20/21 History traMADol HCl [Ultram] 50 mg PO BID 07/10/14 03/20/21 History Budesonide [Pulmicort] 0.5 mg INHALATION RT-BID 06/16/16 03/20/21 History Spironolactone [Aldactone] 25 mg PO DAILY 06/16/16 03/20/21 History Zafirlukast [Accolate] 20 mg PO BID 06/16/16 03/20/21 History Clopidogrel [Plavix] 75 mg PO DAILY 10/10/20 03/20/21 History Magnesium Oxide 400 mg PO DAILY 10/10/20 03/20/21 History Metoprolol Succinate [Toprol XL] 50 mg PO BID 10/10/20 03/20/21 History Multivitamins, Thera [Multivitamin 1 tab PO DAILY 02/06/21 03/20/21 History (formulary)] Sacubitril/Valsartan [Entresto 24 1 tab PO BID 02/06/21 03/20/21 History mg-26 mg Tablet] Aspirin EC [Ecotrin Low Dose] 81 mg PO DAILY 03/20/21 03/20/21 History Atorvastatin Calcium [Lipitor] 80 mg PO DAILY 03/20/21 03/20/21 History Allergies Allergy/AdvReac Type Severity Reaction Status Date / Time No Known Allergies Allergy Verified 03/20/21 18:35 Physical Exam Vitals: Vital Signs Temp Pulse Pulse Resp BP BP Pulse Ox 03/21/21 08:00 18 03/21/21 07:00 98.0 F 68 18 129/77 95 03/21/21 02:00 97.4 F L 52 L 16 115/58 95 03/20/21 21:56 97.9 F 59 L 16 138/70 99 03/20/21 21:00 98.4 F 57 L 16 130/64 95 03/20/21 20:00 16 03/20/21 17:29 97.5 F L 66 18 127/65 96 Intake and Output 03/20/21 03/21/21 03/21/21 22:59 06:59 14:59 Intake Total 240 Balance 240 Intake: Oral 240 Other: Voiding Method Toilet # Voids 2 Weight 90.718 kg 89.8 kg - Constitutional General appearance: cooperative, no acute distress, obese - EENT Eyes: anicteric sclerae, PERRLA, normal appearance ENT: hearing grossly normal - Neck Neck: no lymphadenopathy, normal ROM, no other, no rigidity, no stridor, no thyromegaly - Respiratory Respiratory: bilateral: CTA, negative: diminished, dullness, rales, rhonchi - Cardiovascular Rhythm: regular Heart sounds: normal: S1, S2 Abnormal Heart Sounds: 3 / 6 systolic murmur, no diastolic murmur, no rub, no S3 Gallop, no S4 Gallop, no click, no other - Gastrointestinal General gastrointestinal: normal bowel sounds, soft - Integumentary Integumentary: Groin area was examined does have superficial bruising and ecchymosis no underlying mass palpable - Neurologic Neurologic: CNII-XII intact - Musculoskeletal Musculoskeletal: gait normal, strength equal bilaterally - Psychiatric Psychiatric: A&O x's 3, appropriate affect Results CBC & Chem 7: 03/20/21 18:45 03/20/21 18:45 Labs: Abnormal Lab Results - Last 24 Hours (Table) 03/20/21 Range/Units 18:45 RBC 4.08 L (4.30-5.90) m/uL MCV 100.3 H (80.0-100.0) fL Thrombosis Risk Factor Assmnt - DVT/VTE Prophylaxis DVT/VTE Prophylaxis: Pharmacologic Prophylaxis ordered - Choose All That Apply Any of the Below Risk Factors Present?: Yes Each Factor Represents 1 point: Abnormal pulmonary function (COPD) Each Risk Factor Represents 2 Points: Age 61-74 years Thrombosis Risk Factor Assessment Total Risk Factor Score: 3 Thrombosis Risk Factor Assessment Level: Moderate Risk Assessment and Plan Plan: #1 pseudoaneurysm of right groin. Repeat ultrasound negative possible thrombosis. Cardiology seen the patient had has cleared for discharge #2 coronary artery disease status post CABG and multiple stenting with AICD continue metoprolol, Plavix, aspirin, atorvastatin 3 history of ischemic congestive heart failure continue metoprolol, Lipitor, aspirin, atorvastatin, and entresto #4 BPH continue tamsulosin #5 history of hyperlipidemia continue atorvastatin 40 mg daily #6 history of sleep apnea on CPAP #7 history of cardiac arrest, stable on AICD #8 CODE STATUS full code #9 DVT prophylaxis with heparin every 12 #11 disposition discharged today
--- NOTE | 2021-03-21 13:50 | CONS ---
CONSULTATION HISTORY OF PRESENT ILLNESS: This is a 70-year-old gentleman with a history of CAD prior bypass surgery. He underwent from the right femoral approach, an atherectomy of left superficial femoral artery and this procedure was performed from the right femoral approach and he was apparently had an ultrasound of the right groin because of a swelling and there was a question of pseudoaneurysm on Tuesday and was advised to come to the hospital for this. On my evaluation, it appears that the pseudoaneurysm at present maybe very small. I can hear a very soft bruit. There is no pulsatile mass. The patient is comfortable resting and he is here in the hospital at the request of Dr. Jay who saw a pseudoaneurysm and that was 48 hours ago. He is resting comfortably at this time without symptoms. He has history of CAD, ischemic cardiomyopathy on multiple medications, stable in this regard without symptoms. PAST MEDICAL HISTORY: 1. CAD with ischemic cardiomyopathy and prior aortocoronary bypass surgery. 2. History of peripheral artery disease, and recently within the last 2 weeks had a left SFA orbital atherectomy performed with good result. Please refer to the recent hospitalization note for other information. This patient also has an ICD. PHYSICAL EXAMINATION: On examination, blood pressure is 130/70, pulse rate is 68 per minute. HEENT unremarkable. Fundus was not examined by me. NECK is supple. No JVD. I do not hear a carotid bruit. HEART exam reveals S1, S2 with a short systolic murmur. LUNGS are clear. ABDOMEN: Soft, nontender. Right groin has a small area of ecchymosis, a very soft bruit is audible. There is no pulsatile mass. LUNGS revealed bilateral decent air entry bilateral lung palomino. Lower EXTREMITIES reveal diminished palpable distal pulses. CENTRAL NERVOUS SYSTEM grossly within normal limits. IMPRESSION: 1. Possible right groin pseudoaneurysm. 2. Stable coronary artery disease with previous bypass surgery. 3. Status post left SFA orbital atherectomy performed 2 weeks ago. RECOMMENDATIONS: I am recommending ultrasound of the groin, and if this is normal, he can be discharged but if it is abnormal and has a pseudoaneurysm, I will request interventional radiologist to perform the ultrasound-guided compression or thrombin injection. If ultrasound is normal, patient can be discharged and see Dr. Jay in the next 2 weeks. Thank you for the consultation. MMODL / IJN: [id number] /
[2021-03-21] MEDS ORDERED: BUDESONIDE 0.5 MG/2 ML NEBU INHALATION SCH (20:00)
[2021-03-21] MEDS ORDERED: MONTELUKAST 10 MG TAB PO SCH (21:00)
[2021-03-22] MEDS ORDERED: MAGNESIUM OXIDE 400 MG TAB PO SCH (09:00)
== END 2021-03-21 13:44 | disposition home or self-care (01) ==
LOC: EC 17:20 → 6NMEDSUR 19:00
PROVIDERS: ADMIT Internal Medicine; ATTEND Internal Medicine
DX: I25.10 Atherosclerotic heart disease of native coronary artery without angina pectoris (principal); I73.9 Peripheral vascular disease, unspecified; E78.5 Hyperlipidemia, unspecified; I50.9 Heart failure, unspecified; I11.0 Hypertensive heart disease with heart failure; I25.5 Ischemic cardiomyopathy; Z20.822 Contact with and (suspected) exposure to COVID-19; J44.9 Chronic obstructive pulmonary disease, unspecified; N40.0 Benign prostatic hyperplasia without lower urinary tract symptoms; I25.2 Old myocardial infarction; K40.90 Unilateral inguinal hernia, without obstruction or gangrene, not specified as recurrent; Z79.899 Other long term (current) drug therapy; Z79.82 Long term (current) use of aspirin; Z79.02 Long term (current) use of antithrombotics/antiplatelets; Z87.442 Personal history of urinary calculi; Z86.74 Personal history of sudden cardiac arrest; Z85.828 Personal history of other malignant neoplasm of skin; Z95.810 Presence of automatic (implantable) cardiac defibrillator; Z95.1 Presence of aortocoronary bypass graft; Z95.5 Presence of coronary angioplasty implant and graft; Z87.891 Personal history of nicotine dependence; Z82.49 Family history of ischemic heart disease and other diseases of the circulatory system
CPT/HCPCS: 99285; 36415; 80053; 83605; 85025; 85610; 85730; 87635; 93975; 93926; G0378 ×2

== ENCOUNTER → 2021-05-02 | Outpatient (CLI) | payer MEDICARE | END | disposition home or self-care (01) ==

== ENCOUNTER 2021-05-13 09:20 | Day surgery (SDC) | payer MEDICARE ==
[2021-05-12 08:53] VITALS: BMI 32.4
[~2021-05-13 09:20] MED LIST changes: -ALPRAZolam 0.25 MG TAB PO PRN; -HEPARIN SODIUM,PORCINE 10,000 UNIT in SODIUM CHLORIDE 0.9% 1,000 ML IRRIGATION PRN; -HEPARIN SODIUM,PORCINE 2,500 UNIT in SODIUM CHLORIDE 0.9% 250 ML IRRIGATION PRN; -ZOLPIDEM 5 MG TAB PO PRN
[2021-05-13] MEDS ORDERED: MIDAZOLAM 2 MG/2 ML VIAL IVP ONE ×2 (10:51→11:44)
[2021-05-13] MEDS ORDERED: LIDOCAINE 1% INJ 10MG/ML (20 ML MDV) SQ ONE (10:52)
[2021-05-13] MEDS ORDERED: HEPARIN SODIUM 1,000 UN/ML (10ML VL) IVP ONE (10:59)
[2021-05-13] MEDS ORDERED: SODIUM CHLORIDE 0.9% 500 ML 500 ML with niCARdipine 6.25 MG, NITROGLYCERIN-D5W PMX 0.05... IV ONE ×4 (11:06)
[2021-05-13] MEDS ORDERED: NITROGLYCERIN 1000MCG/10ML SYRINGE INTRAARTER ONE (12:40)
[2021-05-13] MEDS ORDERED: niCARdipine Syringe (1,000 mcg/10 mL) INTRAARTER ONE (12:40)
[2021-05-13] MEDS ORDERED: IOPAMIDOL-250 100ML BTL INTRAARTER ONE (12:44)
[2021-05-13] MEDS ORDERED: NON FORMULARY DRUG (Omalizumab 150 MG Vial) SQ SCH (13:00)
[2021-05-13] MEDS ORDERED: IPRATROPIUM-ALBUTEROL 3 ML NEB INHALATION PRN (13:00)
[2021-05-13] MEDS ORDERED: SODIUM CHLORIDE 0.9% 1,000 ML in EMPTY BAG 1 BAG IV SCH (13:00)
[2021-05-13] MEDS ORDERED: CLOPIDOGREL 75 MG TAB PO ONE (13:01)
--- NOTE | 2021-05-13 13:51 | IR ---
EXAMINATION TYPE: IR stent intravas non coronary DATE OF EXAM: 05/13/2021 COMPARISON: NONE HISTORY: Leg pain Fluoroscopy support supplied to the referring clinician. See dictated report from cardiology, 36.5 m inutes fluoroscopy time supplied to the referring clinician
[2021-05-13] MEDS ORDERED: ATROPINE SULFATE 0.1 MG/ML 10ML SYRINGE ONE (17:27)
[2021-05-13] MEDS: BUDESONIDE 0.5 MG/2 ML NEBU INHALATION SCH (19:51)
--- NOTE | 2021-05-13 20:06 | AN ---
ANGIOGRAPHY REPORT May 13, 2021. PERFORMING PHYSICIAN: Gabe Jay MD. PROCEDURE PERFORMED: 1. Atherectomy of the right SFA and right popliteal using the orbital atherectomy device from [employer]. 2. Intravascular ultrasound (IVUS) of the right SFA and right popliteal. 3. Successful stenting of the right SFA using a 8.0 x 80 mm Zilver PTX drug-coated stent with an excellent angiographic results. 4. Successful balloon angioplasty of the right popliteal using drug-coated balloon with excellent angiographic results. 5. Right lower extremity angiogram. 6. Left common femoral artery angiogram. INDICATION: Intermittent claudication in this 70-year-old gentleman who is known to have CAD and occluded right SFA and right popliteal identified on a prior angiogram. APPROACH: Left common femoral artery. COMPLICATION: None. LEVEL OF SEDATION: Moderate with sedation length of 114 minutes. PROCEDURE DESCRIPTION: After obtaining an informed consent, the patient was brought to the cardiac tag and label cutter. The left common femoral artery was cannulated using micropuncture technique under ultrasound guidance, the micropuncture wire passed easily then I placed a 6-Maldivian 70 cm sheath at the left common femoral artery after I advanced a 035 stiff Glidewire. Please note that I predilated using 6-Maldivian dilator. Subsequently, I did go up and over to the right profunda using a 035 stiff Glidewire with the backup support of 5-Maldivian RIM catheter. Subsequently, I advanced the sheath over the stiff Glidewire under rim catheter to the right common femoral artery. Right lower extremity angiogram was performed and revealed 2 vessel runoff below the knee on the right side with dominant right posterior tibial artery and occluded right popliteal and right SFA. I was able to cross the chronic total occlusion of the right SFA. Subsequently I did do intravascular ultrasound which showed I was in the true lumen all the way and also I did decide that do get a diameter of the SFA and popliteal between 6-7 mm. Half atherectomy was performed using the orbital atherectomy device from [employer] and using 1.5 mm jimmy. Balloon angioplasty for the right SFA was performed using 6 mm balloon. For the right popliteal and very proximal right SFA. I did use chocolate balloon. The following angiogram showed good angiographic results in the mid SFA as well as distal SFA as well as right popliteal. So I did DCB on it and by the end, it did show excellent angiographic results. For the very proximal right SFA right after the profunda bifurcation it shows dissection which I decided to cover with a stent. I deployed 8.0 x 80 mm Zilver PTX drug-coated stent where the stent was positioned under fluoroscopy guidance and deployed under fluoroscopic guidance. The stent was dilated using 7 mm balloon. The final angiogram showed excellent angiographic results and the procedure was completed without any complication. After that, I did exchange my long sheath into short sheath using 0.035 stiff Glidewire before I did selective left common femoral artery angiogram. The procedure was completed without any complication. POSTPROCEDURE MANAGEMENT: 1. Dual anti-platelet therapy. 2. Aggressive cholesterol control. 3. Risk factor modifications. 4. Follow up with the patient. MMYAO / IJN: [id number] /
[2021-05-13] MEDS ORDERED: MONTELUKAST 10 MG TAB PO SCH (21:00)
[2021-05-13] MEDS: traMADol 50 MG TAB PO SCH (22:18)
[2021-05-13] MEDS: SACUBITRIL/VALSARTAN 24 MG-26 MG TABLET PO SCH (22:18)
[2021-05-13] MEDS: METOPROLOL SUCCINATE (ER) 50 MG TAB.ER.24H PO SCH (23:44)
[2021-05-14 04:10] VITALS: RESP 16; TEMP 98.1
[2021-05-14] MEDS: BUDESONIDE 0.5 MG/2 ML NEBU INHALATION SCH (08:01)
[2021-05-14] MEDS ORDERED: ASPIRIN 81 MG PO SCH (09:00)
[2021-05-14] MEDS ORDERED: TAMSULOSIN 0.4 MG CAP.ER.24H PO SCH (09:00)
[2021-05-14] MEDS ORDERED: MULTIVITAMINS, THERA 1 EACH TAB PO SCH (09:00)
[2021-05-14] MEDS ORDERED: MAGNESIUM OXIDE 400 MG TAB PO SCH (09:00)
[2021-05-14] MEDS ORDERED: ATORVASTATIN 80 MG TAB PO SCH (09:00)
[2021-05-14] MEDS ORDERED: CLOPIDOGREL 75 MG TAB PO SCH (09:00)
[2021-05-14] MEDS ORDERED: SPIRONOLACTONE 25 MG TAB PO SCH (09:00)
[2021-05-14] MEDS: traMADol 50 MG TAB PO SCH (09:45)
[2021-05-14] MEDS: METOPROLOL SUCCINATE (ER) 50 MG TAB.ER.24H PO SCH (09:45)
[2021-05-14] MEDS: SACUBITRIL/VALSARTAN 24 MG-26 MG TABLET PO SCH (09:46)
[2021-05-14 10:30] LABS: African American GFR (CKD) >90 (>60 ml/min/1.73 sqM); Anion Gap 4 mmol/L; Blood Urea Nitrogen 16 mg/dL (9-20); Calcium 9.1 mg/dL (8.4-10.2); Carbon Dioxide 32 mmol/L (22-30); Chloride 104 mmol/L (98-107); Glucose 110 mg/dL (74-99); Non-African American GFR(CKD) 86 (>60 ml/min/1.73 sqM); Potassium 4.6 mmol/L (3.5-5.1); Sodium 140 mmol/L (137-145)
[2021-05-14 11:14] LABS: Basophils % (A) 1 %; Eosinophils # (A) 0.2 k/uL (0-0.7); Eosinophils % (A) 2 %; HCT 45.4 % (39.0-53.0); HGB 14.6 gm/dL (13.0-17.5); Lymphocytes # (A) 0.9 k/uL (1.0-4.8); Lymphocytes % (A) 10 %; MCH 34.1 pg (25.0-35.0); MCHC 32.2 g/dL (31.0-37.0); Macrocytosis Moderate; Mean Platelet Volume 8.5; Monocytes # (A) 0.5 k/uL (0-1.0); Monocytes % (A) 6 %; Neutrophils % (A) 79 %; Platelet Count 187 k/uL (150-450); RBC 4.29 m/uL (4.30-5.90); RDW 12.7 % (11.5-15.5); WBC 8.9 k/uL (3.8-10.6)
[2021-05-14 11:31] VITALS: BP 148/70; PULSE 88
--- NOTE | 2021-05-14 19:19 | DS ---
DISCHARGE SUMMARY DATE OF ADMISSION: May 13, 2021. DISCHARGE DATE: May 14, 2021. BRIEF HISTORY: This is a 70-year-old gentleman who underwent yesterday successful recanalizing chronic total occluded right SFA. The procedure was performed without any complication. The patient is going to be discharged home on anti-platelet and statin and I will follow up with the patient next week in the office. MMYAO / JOSÉ MIGUEL: [id number] /
--- NOTE | 2021-05-18 10:58 | CDI ---
Outpatient Documentation Clarification Form Date: 05/18/21 CDS/Steel Sampler Name: Michaela Willett Phone: If any questions,call Beatriz Ye Organic Section Technical Lead at Patient Name. Cornelio Childers Admit Date: 05/13/21 Discharge Date: 05/14/21 ATTENTION: The [facility] coding Staff appreciate your assistance in clarifying documentation. Please respond to the clarification below the line at the bottom and electronically sign. The [facility] Coding staff will review the response and follow-up if needed. Please note: Queries are made part of the Legal Health Record. If you have any questions, please contact the Coding Manger. Dear , Please provide clarification as to the cause of the occlusive PAD. PAD/PVD is considered unspecified. Greatest specificity is required for medical necessity support and payer medical necessity. Is the underlying cause of the Occlusive PAD one of the following? Arteriosclerotic Disease of the arteries Arteritis Necrotic Due to embolism/thrombosis Other - please specify below. Thank you for your kind consideration, MTDD
--- NOTE | 2021-05-26 06:08 | CDI ---
Outpatient Documentation Clarification Form Date: 05/26/21 CDS/Electric Installer Name: Michaela Willett Phone: If any questions,call Beatriz Ye Complaint Manager at Patient Name. Cornelio Childers Admit Date: 05/13/21 Discharge Date: 05/14/21 ATTENTION: The [facility] coding Staff appreciate your assistance in clarifying documentation. Please respond to the clarification below the line at the bottom and electronically sign. The [facility] Coding staff will review the response and follow-up if needed. Please note: Queries are made part of the Legal Health Record. If you have any questions, please contact the Coding Manger. Dear , Please provide clarification as to the cause of the occlusive PAD. PAD/PVD is considered unspecified. Greatest specificity is required for medical necessity support and payer medical necessity requirement. Is the underlying cause of the Occlusive PAD one of the following? Arteriosclerotic Disease of the arteries Arteritis Necrotic Due to embolism/thrombosis Other - please specify below. Thank you for your kind consideration, MTDD
== END 2021-05-14 12:01 | disposition home or self-care (01) ==
LOC: CATHCVL 09:20 → 3SCARD 13:46 → CATHCVL 05-14 12:01
PROVIDERS: ATTEND Internal Medicine Interventional Cardiology
DX: I73.9 Peripheral vascular disease, unspecified (principal); M79.604 Pain in right leg; I25.10 Atherosclerotic heart disease of native coronary artery without angina pectoris; I11.0 Hypertensive heart disease with heart failure; I50.9 Heart failure, unspecified; Z95.1 Presence of aortocoronary bypass graft; I25.5 Ischemic cardiomyopathy; Z95.810 Presence of automatic (implantable) cardiac defibrillator; E78.5 Hyperlipidemia, unspecified; Z82.61 Family history of arthritis; Z82.49 Family history of ischemic heart disease and other diseases of the circulatory system; Z72.0 Tobacco use; Z79.1 Long term (current) use of non-steroidal anti-inflammatories (NSAID); Z79.02 Long term (current) use of antithrombotics/antiplatelets; Z79.82 Long term (current) use of aspirin; Z79.51 Long term (current) use of inhaled steroids; Z79.899 Other long term (current) drug therapy
CPT/HCPCS: 94640; 37227; 37252; 80048; 85025; C1894 ×2; C1769 ×8; C1714; C1725 ×3; C1753; C2623 ×2; C1874; J2250; J2001; J1644; Q9966

== ENCOUNTER → 2022-09-03 | Outpatient (CLI) | payer MEDICARE ==
[2022-09-03 18:04] LABS: African American GFR (CKD) 78.7 (60.0-200.0); BUN/Creat Ratio 13.94 Ratio (12.00-20.00); Blood Urea Nitrogen 15.2 mg/dL (9.0-27.0); Calcium 9.3 mg/dL (8.7-10.3); Chloride 101 mmol/L (96-109); Glucose 86 mg/dL (70-110); Non-African American GFR(CKD) 67.9 (60.0-200.0); Potassium 4.5 mmol/L (3.5-5.5); Sodium 139 mmol/L (135-145)
== END | disposition home or self-care (01) ==
LOC: LABWHC1 10:34
PROVIDERS: ATTEND Internal Medicine Clinical Cardiac Electrophysiology
DX: I25.10 Atherosclerotic heart disease of native coronary artery without angina pectoris (principal); I49.01 Ventricular fibrillation
CPT/HCPCS: 36415; 80048; 83735; 84443

== ENCOUNTER → 2022-11-16 | Outpatient (CLI) | payer MEDICARE ==
[2022-11-16 17:29] LABS: African American GFR (CKD) 69.6 (60.0-200.0); Anion Gap 9.4 mmol/L (10.00-18.00); BUN/Creat Ratio 13.08 Ratio (12.00-20.00); Blood Urea Nitrogen 15.7 mg/dL (9.0-27.0); Calcium 9.6 mg/dL (8.7-10.3); Carbon Dioxide 29.6 mmol/L (20.0-27.5); Magnesium 2.1 mg/dL (1.5-2.4); Non-African American GFR(CKD) 60.1 (60.0-200.0); Potassium 5.1 mmol/L (3.5-5.5)
== END | disposition home or self-care (01) ==
LOC: LABWHC1 08:31
PROVIDERS: ATTEND Nurse Practitioner Adult Health
DX: I10 Essential (primary) hypertension (principal)
CPT/HCPCS: 36415; 80048; 83735

== ENCOUNTER 2023-08-22 07:14 | Day surgery (SDC) | payer MEDICARE ==
[2023-08-19 14:40] VITALS: BMI 32.7
[~2023-08-22 07:14] MED LIST changes: -ASPIRIN 325 MG TAB PO PRN; +SODIUM CHLORIDE 0.9% 1,000 ML IV SCH; -SODIUM CHLORIDE 0.9% 1,000 ML in EMPTY BAG 1 BAG IV ONE
[2023-08-22] MEDS ORDERED: SODIUM CHLORIDE 0.9% 500 ML 500 ML IV ONE (07:40)
[2023-08-22 08:00] VITALS: RESP 16; TEMP 97.7
[2023-08-22 08:27] LABS: African American GFR (CKD) >90 (>60 ml/min/1.73 sqM); Anion Gap 8 mmol/L; Blood Urea Nitrogen 17 mg/dL (9-20); Calcium 9.2 mg/dL (8.4-10.2); Carbon Dioxide 28 mmol/L (22-30); Chloride 103 mmol/L (98-107); Glucose 85 mg/dL (74-99); Non-African American GFR(CKD) 83 (>60 ml/min/1.73 sqM); Sodium 139 mmol/L (137-145)
[2023-08-22] MEDS ORDERED: IOPAMIDOL-300 100ML BTL INJ ONE (09:19)
--- NOTE | 2023-08-22 09:43 | P.EPPROC ---
- EP Procedure Note Electrophysiology Procedure Note: Diagnoses Worsening heart failure symptoms Acute and chronic congestive heart failure Underlying left bundle branch block morphology Severe LV dysfunction History of ventricular fibrillation Coronary artery disease Status post dual-chamber ICD implanted previously for secondary management of sudden cardiac risk Planning upgrade to a biventricular ICD Patient has a dual chamber [employer] medical ICD at this time Cinefluoroscopy Cinefluoroscopy revealed right atrial lead in the right atrial appendage in stable position ICD lead in the low RV septum No fractures or breaks noted Left upper extremity venogram performed Occlusion at the axillary subclavian junction but reconstitution of the subclavian vein just proximal to this occlusion A subclavian access should be feasible for upgrade from the left side Plan Proceed with upgrade to biventricular ICD for management of worsening heart. His symptoms with underlying left bundle branch block and severe LV dysfunction
[2023-08-22 10:14] VITALS: BP 108/51; PULSE 50
--- NOTE | 2023-08-22 12:15 | CT ---
EXAMINATION TYPE: CT neck chest w con CT DLP: 1020.9 mGycm, Automated exposure control for dose reduction was used. DATE OF EXAM: 08/22/2023 10:51 AM COMPARISON: CTA neck 12/22/2018, CTA chest 07/10/2014. CLINICAL INDICATION:Male, 72 years old with history of Progression of carotid atherosclerosis;, PROGR ESSION OF CAROTID ATHEROSCLEROSIS TECHNIQUE: Standard enhanced CT of the neck and chest. Axial sections with coronal and sagittal refo rmats were obtained. Contrast used:100 mL of Isovue 300 with IV Contrast, (none if empty) Oral contrast used: (none if empty) FINDINGS: Brain: Visualized portions are grossly unremarkable. Orbits: Unremarkable Sinuses: Grossly unremarkable. Spaces of the neck: Clear and symmetric. Musculoskeletal: No acute osseous pathology. Degenerative disc disease changes of the visualized spin e are present. Mild retrolisthesis of C4 on C5. Lymph nodes: Multiple nonenlarged lymph nodes are seen along both anterior chains of the neck. Vascular structures: Visualized major arteries are patent without evidence of aneurysm. Approximately 90% stenosis at the origin the right internal carotid artery secondary to calcified plaque. Severe s tenosis origin of the right external carotid artery. Greater than 90% stenosis of the origin of the l eft internal carotid artery secondary to calcified plaque. Severe stenosis of the origin of the left external carotid artery. Additional moderate atherosclerotic plaque extends into the common carotid a rteries bilaterally. Right vertebral artery is dominant. The left vertebral artery is diminutive. Thoracic Inlet/airway: Airway is patent. The lung apices are clear. Soft tissues/Thyroid: Thyroid and remainder of the soft tissues are unremarkable. Other: none. LUNGS/ PLEURA: Patchy nodular densities identified within the bilateral lower lobes and right middle lobe left lower lobe dependent consolidation. No pleural effusion or pneumothorax. AIRWAY: Secretions identified within the trachea. HEART: The heart is mildly increased in size.. Post CABG changes. Cardiac pacemaking leads identified . MEDIASTINUM: No gross evidence of adenopathy. VASCULATURE: No aortic aneurysm. Left chest wall cardiac pacemaking device. Atherosclerotic calcific ation of the aorta and its branches. Moderate stenosis at the origin of the left subclavian artery se condary to calcified plaque. MUSCULOSKELETAL: Mild disc degeneration changes are present throughout the thoracolumbar spine.. No a cute osseous abnormality. Sternotomy wires. SOFT TISSUES/LYMPH NODES: Unremarkable. LOWER NECK: No significant findings. UPPER ABDOMEN: Cholelithiasis. IMPRESSION 1. Progression of carotid atherosclerotic disease with approximately 90% stenosis at the origin of th e right internal carotid artery and greater than 90% stenosis origin of left internal carotid artery secondary to calcified plaque. 2. Moderate stenosis at the origin of the left subclavian artery secondary to calcified plaque which is progressed. 3. Patchy nodular densities within the bilateral lower lobes and right middle lobe with left lower lo be dependent consolidation. Findings are suspicious for infectious/inflammatory process. Consider fol low-up CT chest in 6 months. 4. Cholelithiasis.
== END 2023-08-22 10:38 | disposition home or self-care (01) ==
LOC: CATHEP 07:14
PROVIDERS: ATTEND Internal Medicine Clinical Cardiac Electrophysiology
DX: I25.10 Atherosclerotic heart disease of native coronary artery without angina pectoris (principal); Q26.0 Congenital stenosis of vena cava; I44.7 Left bundle-branch block, unspecified; I50.9 Heart failure, unspecified; I65.23 Occlusion and stenosis of bilateral carotid arteries; J98.4 Other disorders of lung; K80.20 Calculus of gallbladder without cholecystitis without obstruction; Z95.810 Presence of automatic (implantable) cardiac defibrillator; Z95.1 Presence of aortocoronary bypass graft; Z79.82 Long term (current) use of aspirin; Z79.899 Other long term (current) drug therapy
CPT/HCPCS: 36005; 75820; 80048; 70491; 71260; Q9967 ×2

== ENCOUNTER → 2023-09-23 | Outpatient (CLI) | payer MEDICARE ==
--- NOTE | 2023-09-23 12:56 | XR ---
EXAMINATION TYPE: XR chest 2V DATE OF EXAM: 09/23/2023 COMPARISON: CT chest and neck on 08/22/2023. HISTORY: Abnormal CT. TECHNIQUE: Frontal and lateral views of the chest are obtained. FINDINGS: The cardiac silhouette is moderately enlarged and the pulmonary vessels are within normal limits. No focal area of consolidation is seen. Left-sided dual-lead AICD generator is seen. There are midline sternotomy wires. IMPRESSION: Cardiomegaly with no visible acute findings radiographically.
== END | disposition home or self-care (01) ==
LOC: RADXRMAIN 12:14
PROVIDERS: ATTEND Internal Medicine Clinical Cardiac Electrophysiology
DX: I50.22 Chronic systolic (congestive) heart failure (principal); I51.7 Cardiomegaly
CPT/HCPCS: 71046

== ENCOUNTER → 2023-09-23 | Outpatient (CLI) | payer MEDICARE ==
[2023-09-23 19:04] LABS: Basophils # (A) 0.04 X 10*3/uL (0.00-0.10); Basophils % (A) 0.5 %; Eosinophils # (A) 0.17 X 10*3/uL (0.04-0.35); HCT 43.2 % (39.6-50.0); HGB 13.8 g/dL (13.0-17.0); Lymphocytes % (A) 19.8 %; MCH 32.8 pg (27.0-32.0); MCHC 31.9 g/dL (32.0-37.0); MCV 102.6 FL (80.0-97.0); Mean Platelet Volume 10.8 FL (9.5-12.2); Monocytes # (A) 0.64 X 10*3/uL (0.20-1.00); Monocytes % (A) 7.5 %; NRBC Per 100 WBC 0 X 10*3/uL (0.00-0.01); Neutrophils % (A) 69.9 %; Platelet Count 161 X 10*3/uL (140-440); RBC 4.21 X 10*6/uL (4.40-5.60); RDW 13.6 % (11.5-14.5); WBC 8.58 X 10*3/uL (4.50-10.00)
[2023-09-23 19:41] LABS: ALT 24 U/L (10-49); AST 27 U/L (14-35); Albumin 3.9 g/dL (3.8-4.9); Alkaline Phosphatase 85 U/L (41-126); BUN/Creat Ratio 15.33 Ratio (12.00-20.00); Blood Urea Nitrogen 18.4 mg/dL (9.0-27.0); Calcium 9.2 mg/dL (8.7-10.3); Carbon Dioxide 27.6 mmol/L (21.6-31.8); Chloride 103 mmol/L (96-109); Chol/HDL Ratio 1.18 Ratio; Globulin 2.6 g/dL (1.6-3.3); Glucose 86 mg/dL (70-110); LDL Cholesterol,Calculated 5.2 mg/dL (0.0-131.0); Potassium 4.6 mmol/L (3.5-5.5); Prostate Specific Antigen 0.73 ng/mL (0.000-6.500); Sodium 140 mmol/L (135-145); Total Bilirubin 0.6 mg/dL (0.3-1.2); Total Protein 6.5 g/dL (6.2-8.2); VLDL Calculation 7.78 mg/dL (5.00-40.00)
== END | disposition home or self-care (01) ==
LOC: LABPAT 13:09
PROVIDERS: ATTEND Internal Medicine Clinical Cardiac Electrophysiology
DX: Z01.812 Encounter for preprocedural laboratory examination (principal); I50.22 Chronic systolic (congestive) heart failure; N18.2 Chronic kidney disease, stage 2 (mild); I25.10 Atherosclerotic heart disease of native coronary artery without angina pectoris; N40.0 Benign prostatic hyperplasia without lower urinary tract symptoms; I46.9 Cardiac arrest, cause unspecified; I44.7 Left bundle-branch block, unspecified; R73.9 Hyperglycemia, unspecified
CPT/HCPCS: 80053; 80061; 83036; 84153; 84443; 84550; 85025

== ENCOUNTER 2023-10-04 09:14 | Day surgery (SDC) | payer MEDICARE ==
[2023-09-30 08:31] VITALS: BMI 31.7
[~2023-10-04 09:14] MED LIST changes: +HYDROmorphone 0.5 MG/0.5 ML SYRINGE IVP PRN; +LIDOCAINE 1% (10MG/ML) FOR IV START INTRADERMA PRN; -SODIUM CHLORIDE 0.9% 1,000 ML IV SCH; +SODIUM CHLORIDE 0.9% IVPB ONE; +VANCOMYCIN IVPB ONE
[2023-10-04] MEDS: SODIUM CHLORIDE 0.9% 1,000 ML IV SCH (09:49)
[2023-10-04] MEDS: VANCOMYCIN 1,500 MG in SODIUM CHLORIDE 0.9% 500 ML 500 ML IVPB ONE (09:55)
[2023-10-04 10:23] LABS: Basophils # (A) 0.1 k/uL (0-0.2); Basophils % (A) 1 %; Eosinophils # (A) 0.2 k/uL (0-0.7); Eosinophils % (A) 3 %; HCT 43.6 % (39.0-53.0); HGB 14.2 gm/dL (13.0-17.5); Lymphocytes # (A) 1.5 k/uL (1.0-4.8); Lymphocytes % (A) 25 %; MCH 34.1 pg (25.0-35.0); MCHC 32.6 g/dL (31.0-37.0); MCV 104.6 fL (80.0-100.0); Macrocytosis Slight; Mean Platelet Volume 8.6; Monocytes # (A) 0.5 k/uL (0-1.0); Monocytes % (A) 8 %; Neutrophils # (A) 3.6 k/uL (1.3-7.7); Neutrophils % (A) 59 %; Platelet Count 185 k/uL (150-450); RBC 4.17 m/uL (4.30-5.90); RDW 12.6 % (11.5-15.5)
[2023-10-04 10:28] LABS: African American GFR (CKD) 80 (>60 ml/min/1.73 sqM); Anion Gap 9 mmol/L; Blood Urea Nitrogen 19 mg/dL (9-20); Carbon Dioxide 28 mmol/L (22-30); Chloride 103 mmol/L (98-107); Glucose 83 mg/dL (74-99); Non-African American GFR(CKD) 69 (>60 ml/min/1.73 sqM); Potassium 4.4 mmol/L (3.5-5.1); Sodium 140 mmol/L (137-145)
[2023-10-04] MEDS ORDERED: LIDOCAINE 1% INJ 10MG/ML (20 ML MDV) ONE ×3 (10:56→13:15)
[2023-10-04] MEDS ORDERED: fentaNYL (PF) 50 MCG/ML 2 ML AMP ONE (12:08)
[2023-10-04] MEDS ORDERED: KETAMINE HCL IN 0.9 % NACL 50 MG/5 ML SYRINGE ONE (12:08)
[2023-10-04] MEDS ORDERED: diphenhydrAMINE 50 MG/ML 1 ML VIAL ONE (12:08)
[2023-10-04] MEDS ORDERED: MIDAZOLAM 2 MG/2 ML VIAL ONE (12:08)
[2023-10-04] MEDS: IOPAMIDOL-370 100ML BTL INJ ONE ×2 (12:25→15:33)
[2023-10-04] MEDS: LIDOCAINE 1% INJ 10MG/ML (20 ML MDV) SQ ONE ×2 (12:51→13:30)
[2023-10-04] MEDS: ceFAZolin 1 GM in SODIUM CHLORIDE 0.9% IRRIG BTL 250 ML IRRIGATION PRN (16:35)
[2023-10-04] MEDS ORDERED: ACETAMINOPHEN TAB 325 MG TAB PO PRN (16:53)
--- NOTE | 2023-10-04 17:12 | P.EPPROC ---
- EP Procedure Note Electrophysiology Procedure Note: Procedure Upgrade to a biventricular ICD. Patient has a dual-chamber ICD in situ for a history of severe ischemic cardio myopathy, systolic congestive heart failure and history of VF arrest in the past Diagnosis Acute and chronic congestive heart failure with worsening heart failure despite guideline recommended medical treatment, class III Underlying severe ischemic cardio myopathy Left ventricular ejection fraction 20% Known CAD, status post coronary artery bypass grafting Left bundle branch block, wide QRS History of VF arrest requiring ICD implantation in the past Details Patient was brought to the EP lab in a fasting state. Written informed consent was obtained prior to the procedure. A venogram was repeated. 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 IV antibiotics administered including IV vancomycin and IV An incision was made directly over the previous surgical site and carried down to the level of the generator to lie and the generator was explanted partial capsulectomy was performed hemostasis was assured Venous access was obtained both centrically as well as at the level of the first rib and at the level of the second rib on the axillary vein. Venous access was very difficult and took more than 30 minutes because of the stenosis line finally a second rib axillary vein access was obtained and the angioplasty wire passed through the stenosis into the central circulation Following that sheath was placed over it and an advantage wire was placed into the central circulation. An 8-Uzbek sheath was then placed Following placement of the 8-Uzbek sheath, the his bundle sheath was placed over the advantage wire, into the central circulation A 3830-lead was positioned in the right ventricle Excellent physicians were obtained with a W-shaped morphology and multiple occasions However the left bundle could not be paced despite numerous attempts lasting over an hour This was primarily on account of the patient's large right ventricle and extreme clockwise rotation of the heart Subsequently the 8-Uzbek sheath was exchanged for a 9-1/2-Uzbek sheath The LV sheath was placed CS access is also very difficult and finally CS was successfully cannulated However the rotation of the heart was so extreme that in an [place] 20 view, CS catheter within the coronary sinus body appeared as if it was an DIAZ shot Venogram of the Eduardo sinus was performed The patient had 2 anterolateral veins, no lateral vein and a very large middle cardiac vein that retrogradely connected to the anterolateral veins The anterolateral veins are also very tortuous at their origin and both were targeted but despite the fact that the angioplasty wire was successfully placed in each one of them, the lead would not past across the tortuosity Therefore in in a sheath was placed and positioned in the middle cardiac vein. Venogram was repeated to confirm the position Outpatient was then placed in the middle cardiac vein and LV lead was deployed Pacing from the LV lead revealed a very lateral final position In an [place] 45 view the LV poles and a very lateral position and pacing resulted in negative QRS is in lead 1 with a right bundle branch block like morphology Thresholds were excellent and it was only in the distal poles that phenytoin stimulation was noted at 10 V but not at 5 V. On the proximal poles no phrenic nerve stimulation is noted The LV lead was placed The sheaths were successfully removed The lead was secured to the underlying muscle Hemostasis was assured with absorbable sutures The old generator was explanted, dual-chamber ICD A new biventricular ICD high output was implanted, [facility] Atrial threshold 0.9 V at 0.5 ms, P waves 0.9 mV and pacing impedance 460 ohms RV threshold 0.9 V at 0.5 ms, R waves 12 mV pacing impedance 360 ohms LV pacing between M3-M2 was excellent. Pacing threshold 0.8. 0.5 ms with a pacing impedance of 810 ohms and no diaphragmatic stimulation High-voltage impedance 40 ohms, RV to SVC and Can The device was programmed to DDDR 6220 bpm with a paced AV delay of 190 ms The paced morphology was negative in lead 1 and a right bundle branch block type in V1. LV offset 70 ms Antibiotic pouch placed in the pocket Pocket was irrigated and the device was placed. The wound was closed in 3 layers and dressed per protocol Patient tolerated procedure well without any acute complications This is a very long procedure on account of #1. Occlusion of the subclavian vein making access into the central circulation very difficult and prolonged #2 severe cardiomegaly biventricular #3 extreme clockwise rotation of the heart The entire procedure took 4 hours to implant a single lead. Left bundle pacing was attempted but was not successful. LV epicardial pacing was successful but had to be performed via the middle cardiac vein which connected laterally to the anterolateral vein.
[2023-10-04] MEDS ORDERED: HYDROcodone/APAP 10-325MG 1 EACH TAB PO PRN (17:14)
--- NOTE | 2023-10-04 17:14 | P.PRLE ---
RE: Cornelio Childers Dear Aline Alex underwent successful implantation of an LV lead for biventricular pacing Hopefully this resulted in improvement in his heart failure status His heart failure medications will continue unchanged and have been well maximized He is also on a TAPE WEAVER skin 9 inhibitor in addition to statins and Zetia on account of severe carotid disease Dr. Patel recommended medical treatment for his extensive carotid disease Thank you for entrusting me with the care of the patient Warm regards Sincerely Ryan Orozco
[2023-10-04] MEDS: DEXAMETHASONE SOD PHOSPHATE 4 MG/ML 1 ML VIAL IV ONE (17:30)
[2023-10-04] MEDS: droPERidol 5 MG/2 ML VIAL IVP ONE (17:30)
[2023-10-04] MEDS: LACTATED RINGERS 1,000 ML IV SCH (17:31)
[2023-10-04] MEDS: ONDANSETRON 4 MG/2 ML VIAL IVP ONE (17:31)
[2023-10-04] MEDS: ACETAMINOPHEN IV (For NPO) 1,000 MG in EMPTY BAG 1 BAG IVPB ONE (17:32)
[2023-10-04] MEDS: IPRATROPIUM-ALBUTEROL 3 ML NEB INHALATION PRN (20:30)
[2023-10-04] MEDS: BUDESONIDE 0.5 MG/2 ML NEBU INHALATION SCH (20:30)
[2023-10-04] MEDS: SACUBITRIL/VALSARTAN 24 MG-26 MG TABLET PO SCH (20:35)
[2023-10-04] MEDS: METOPROLOL SUCCINATE (ER) 50 MG TAB.ER.24H PO SCH (20:35)
[2023-10-04] MEDS: MONTELUKAST 10 MG TAB PO SCH (20:35)
[2023-10-04] MEDS: traMADol 50 MG TAB PO SCH (20:35)
--- NOTE | 2023-10-05 07:02 | XR ---
EXAMINATION TYPE: XR chest 2V DATE OF EXAM: 10/05/2023 COMPARISON: 09/23/2023 INDICATION: Post pacemaker placement TECHNIQUE: Frontal and lateral views of the chest are obtained. FINDINGS: The heart size is mildly prominent. The pulmonary vasculature is normal. There is blunting left costophrenic angle. Pacemaker overlies the left chest. Multiple leads are present. No pneumothorax is evident. IMPRESSION: 1. No pneumothorax post pacemaker lead placement.
[2023-10-05 07:38] VITALS: BP 106/62; RESP 15; TEMP 98.1
[2023-10-05] MEDS: ATORVASTATIN 80 MG TAB PO SCH (09:19)
[2023-10-05] MEDS: TAMSULOSIN 0.4 MG CAP.ER.24H PO SCH (09:19)
[2023-10-05] MEDS: CLOPIDOGREL 75 MG TAB PO SCH (09:19)
[2023-10-05] MEDS: EZETIMIBE 10 MG TAB PO SCH (09:20)
[2023-10-05] MEDS: ASPIRIN 81 MG PO SCH (09:20)
[2023-10-05] MEDS: SPIRONOLACTONE 25 MG TAB PO SCH (09:20)
[2023-10-05 09:21] VITALS: PULSE 63
[2023-10-05] MEDS: MAGNESIUM OXIDE 400 MG TAB PO SCH (09:21)
[2023-10-05] MEDS: EVOLOCUMAB 140 MG/ML SQ SCH (10:10)
--- NOTE | 2023-10-06 11:30 | P.DS ---
Providers Attending physician: Ryan Orozco Primary care physician: [facility] Course: Patient is doing well. His resting comfortably in bed Minimal soakage of the dressing over the biventricular ICD incision Minimal swelling over the ICD site Denies any chest discomfort. No dizziness lightheadedness He walked to the bathroom and was quite comfortable He has no chest discomfort. Pleuritic chest discomfort no breathing trouble Pulse ox normal Chest x-ray was reviewed No evidence for pneumothorax LV lead is in the very posterior position on the lateral view chest, excellent LV lead position Device was interrogated and thresholds were excellent Impression Severe heart failure acute on chronic systolic LV dysfunction with class III heart failure Secondary to ischemic cardio myopathy History of ventricular fibrillation arrest status post dual-chamber ICD Left bundle branch block and a very wide QRS greater than 200 ms Upgrade to a biventricular ICD LV lead was placed retrogradely in a very posterior lateral position, via the middle cardiac vein. 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, but successful passage across the stenosis into the central circulation On guide lended to medical treatment for heart failure and atherosclerotic coronary and carotid disease Plan Continue current medications Follow-up later this week for a wound check to look for any hematoma Dual antiplatelet therapy will be continued Discharge home Plan - Discharge Summary Discharge Rx Participant: No New Discharge Prescriptions: No Action RX: traMADol HCl [Ultram] 50 mg PO BID RX: Tamsulosin HCl 0.4 mg PO DAILY RX: Omalizumab [Xolair] 300 mg SQ Q28D RX: Nitroglycerin Sl Tabs [Nitrostat] 0.4 mg SL DIRECTED PRN PRN Reason: Chest Pain RX: Ipratropium-Albuterol Nebulize [Duoneb 0.5 mg-3 mg/3 ml Soln] 3 ml I NHALATION RT-QID PRN PRN Reason: Shortness Of Breath RX: Spironolactone [Aldactone] 25 mg PO DAILY RX: Zafirlukast [Accolate] 20 mg PO BID RX: Budesonide [Pulmicort] 0.5 mg INHALATION RT-BID RX: Clopidogrel [Plavix] 75 mg PO DAILY RX: Magnesium Oxide 400 mg PO DAILY RX: Metoprolol Succinate [Toprol XL] 50 mg PO BID RX: Multivitamins, Thera [Multivitamin (formulary)] 1 tab PO DAILY RX: Aspirin EC [Ecotrin Low Dose] 81 mg PO DAILY Evolocumab [Repatha Syringe] 140 mg SQ [id number] RX: Atorvastatin Calcium [Lipitor] 80 mg PO DAILY RX: Sacubitril/Valsartan [Entresto 24 mg-26 mg Tablet] 1 each PO BID Ezetimibe [Zetia] 10 mg PO DAILY Discharge Medication List RX: Ipratropium-Albuterol Nebulize [Duoneb 0.5 mg-3 mg/3 ml Soln] 3 ml INHA LATION RT-QID PRN 07/10/14 [History] RX: Nitroglycerin Sl Tabs [Nitrostat] 0.4 mg SL DIRECTED PRN 07/10/14 [History] RX: Omalizumab [Xolair] 300 mg SQ Q28D 07/10/14 [History] RX: Tamsulosin HCl 0.4 mg PO DAILY 07/10/14 [History] RX: traMADol HCl [Ultram] 50 mg PO BID 07/10/14 [History] RX: Budesonide [Pulmicort] 0.5 mg INHALATION RT-BID 06/16/16 [History] RX: Spironolactone [Aldactone] 25 mg PO DAILY 06/16/16 [History] RX: Zafirlukast [Accolate] 20 mg PO BID 06/16/16 [History] RX: Clopidogrel [Plavix] 75 mg PO DAILY 10/10/20 [History] RX: Magnesium Oxide 400 mg PO DAILY 10/10/20 [History] RX: Metoprolol Succinate [Toprol XL] 50 mg PO BID 10/10/20 [History] RX: Multivitamins, Thera [Multivitamin (formulary)] 1 tab PO DAILY 02/06/21 [History] RX: Aspirin EC [Ecotrin Low Dose] 81 mg PO DAILY 03/20/21 [History] RX: Atorvastatin Calcium [Lipitor] 80 mg PO DAILY 03/20/21 [History] RX: Sacubitril/Valsartan [Entresto 24 mg-26 mg Tablet] 1 each PO BID 05/12/21 [History] Evolocumab [Repatha Syringe] 140 mg SQ [id number] 09/30/23 [History] Ezetimibe [Zetia] 10 mg PO DAILY 09/30/23 [History] Follow up Appointment(s)/Referral(s): Ryan Orozco MD [STAFF PHYSICIAN] - 10/07/23 4:30 pm (See Dr. Orozco Tuesday on Electric then tuesday/ in device clinic Appointment for the Device Clinic will be on Oct.12 @ 10:00am) Patient Instructions/Handouts: Pacemaker Generator Change (DC) Activity/Diet/Wound Care/Special Instructions: PATIENT EDUCATION MATERIAL Instructions following a heart rhythm device implant. 1. Keep dressing DRY for 5 DAYS. You may cover the area with Saran or Cling Wrap, prior to a shower. 2. The dressing will be removed in the Device Clinic at [facility]. Absorbable sutures were used to close the wound. 3. Avoid raising the left arm above the shoulder level. 4 week restriction 4. Avoid arm movements, like backscratching, rubbing the head, or pulling on a cord. 4 weeks restriction 5. Gentle range of motion movements of the shoulder, closest to the incision should be performed to avoid a frozen shoulder. (Pendulum exercises of the shoulder) 6. The opposite arm may be used freely. 7. Avoid driving for 7 days. 8. Avoid activities such as golfing, swimming, weed whacking, lifting more than 10 pounds weight, bowling, gymnastics and weight training/lifting. (6 weeks restriction) 9. Activities such as wood chopping with an axe, pull-ups in the gymnasium, power lifting, arc-welding, being close to home induction cooktops will always be a problem. 10. Arm sling is only a reminder not to raise the arm above the head. You do not need to keep the arm completely immobilized. Your free to move the arm and use it and for normal activities. In case of any problems, please call [facility] [place] [facility], @ [phone], Attention: Device Clinic Device clinic follow-up in 5 days Follow-up with primary healthcare customer service in 2-3 months Discharge Disposition: HOME SELF-CARE
[2023-10-18] MEDS ORDERED: OMALIZUMAB 150 MG SQ SCH (09:00)
== END 2023-10-05 11:37 | disposition home or self-care (01) ==
LOC: CATHEP 09:14 → 6NMEDSUR 16:40 → CATHEP 10-05 11:37
PROVIDERS: ATTEND Internal Medicine Clinical Cardiac Electrophysiology
DX: Z45.02 Encounter for adjustment and management of automatic implantable cardiac defibrillator (principal); I50.23 Acute on chronic systolic (congestive) heart failure; I44.7 Left bundle-branch block, unspecified; I25.5 Ischemic cardiomyopathy; I11.0 Hypertensive heart disease with heart failure; Z82.49 Family history of ischemic heart disease and other diseases of the circulatory system; E78.5 Hyperlipidemia, unspecified; Z79.82 Long term (current) use of aspirin; Z79.899 Other long term (current) drug therapy
CPT/HCPCS: 94640 ×2; 33225; 33264; 80048; 84443; 85025; 71046; C1769 ×3; C1892 ×2; C1730; C1887; C1898; C1900; C1882; J2250; J3370; J1200; J0690; J2001; J3010; Q9967

== ENCOUNTER 2023-10-07 18:21 | Emergency (ER) | payer MEDICARE ==
[2023-10-07 19:04] VITALS: TEMP 98
--- NOTE | 2023-10-07 19:38 | ED ---
Skin/Abscess/FB HPI - General Chief complaint: Skin/Abscess/Foreign Body Stated complaint: Post Op-Leakage, Pacemaker Changed out 10/04 Time Seen by Provider: 10/07/23 19:08 Source: patient, RN notes reviewed, old records reviewed Mode of arrival: ambulatory Limitations: no limitations - History of Present Illness Initial comments: This is a 73-year-old male to the emergency department for evaluation of need for dressing change. Patient significant issues with rash around catheter with complaints for evaluation and need for evaluation of that area. Patient has no complaints of shortness of breath chest pain or any other recent illness, no fevers MD complaint: rash, abscess/boil -: days(s) Tetanus Up to Date: yes Severity: mild Consistency: constant Improves with: none Worsens with: none Context: none Associated symptoms: denies other symptoms Treatments Prior to Arrival: bandages - Related Data Home Medications Medication Instructions Recorded Confirmed Ipratropium-Albuterol Nebulize 3 ml INHALATION RT-QID PRN 07/10/14 10/19/23 [Duoneb 0.5 mg-3 mg/3 ml Soln] Nitroglycerin Sl Tabs [Nitrostat] 0.4 mg SL Q5M PRN 07/10/14 10/19/23 Omalizumab [Xolair] 300 mg SQ Q28D 07/10/14 10/19/23 Tamsulosin HCl 0.4 mg PO DAILY 07/10/14 10/19/23 traMADol HCl [Ultram] 50 mg PO BID 07/10/14 10/19/23 Budesonide [Pulmicort] 0.5 mg INHALATION RT-BID 06/16/16 10/19/23 Zafirlukast [Accolate] 20 mg PO BID 06/16/16 10/19/23 Clopidogrel [Plavix] 75 mg PO DAILY 10/10/20 10/19/23 Magnesium Oxide 400 mg PO DAILY 10/10/20 10/19/23 Metoprolol Succinate [Toprol XL] 50 mg PO BID 10/10/20 10/19/23 Multivitamins, Thera [Multivitamin 1 tab PO DAILY 02/06/21 10/19/23 (formulary)] Aspirin EC [Ecotrin Low Dose] 81 mg PO DAILY 03/20/21 10/19/23 Atorvastatin Calcium [Lipitor] 80 mg PO DAILY 03/20/21 10/19/23 Sacubitril/Valsartan [Entresto 24 1 tab PO BID 05/12/21 10/19/23 mg-26 mg Tablet] Evolocumab [Repatha Syringe] 140 mg SQ [id number] 09/30/23 10/19/23 Ezetimibe [Zetia] 10 mg PO DAILY 09/30/23 10/19/23 Previous Rx's Medication Instructions Recorded Spironolactone 12.5 mg PO DAILY #90 tablet 10/19/23 Allergies Allergy/AdvReac Type Severity Reaction Status Date / Time No Known Allergies Allergy Verified 10/19/23 16:23 Review of Systems ROS Statement: Those systems with pertinent positive or pertinent negative responses have been documented in the HPI. ROS Other: All systems not noted in ROS Statement are negative. Past Medical History Past Medical History: Coronary Artery Disease (CAD), Cancer, Chest Pain / Angina, Heart Failure, COPD, Hyperlipidemia, Myocardial Infarction (non Q-wave), Prostate Disorder, Sleep Apnea/CPAP/BIPAP Additional Past Medical History / Comment(s): See Ernesto's H&P,PAST CARDIAC ARREST X3. HAS DUAL AICD. HX SKIN BASAL CELL CA ON BACK. HAS HX KIDNEY STONES. BPH. Last Myocardial Infarction Date:: 2010 History of Any Multi-Drug Resistant Organisms: None Reported Past Surgical History: AICD, Coronary Bypass/CABG, Heart Catheterization With Stent, Hernia Repair, Orthopedic Surgery, Pacemaker Additional Past Surgical History / Comment(s): LT Hip Surgery, 1969. LT INGUINAL HERNIA. LT ARM SX, HAS METAL PALLAVI INSIDE D/T VEIN HARVESTING. LT ELBOW SX(BURSA). STENTS X3, LAST 2006. QUAD CABG 2004. DUAL AICD 2008, & REWIRED 2010 - [facility]. TRAUMATIC AMP RT MIDDLE FINGERTIP,peripheral rt leg arterial stent Past Anesthesia/Blood Transfusion Reactions: No Reported Reaction Additional Past Anesthesia/Blood Transfusion Reaction / Comment(s): no hx of problems with prior blood transfusions Date of Last Stent Placement:: 2006 Type of Cardiac Device: Permanent Pacemaker, AICD Device Placement Date:: 2009 Past Psychological History: No Psychological Hx Reported Smoking Status: Former smoker Past Alcohol Use History: None Reported Past Drug Use History: None Reported - Past Family History Father Family Medical History: Myocardial Infarction (SC) Additional Family Medical History / Comment(s): DAD AT AGE 72- SC Mother Family Medical History: No Reported History Additional Family Medical History / Comment(s): MOM at age 93 General Exam - General Exam Comments Initial Comments: Wound is clean dry and intact Limitations: no limitations General appearance: alert, in no apparent distress Head exam: Present: atraumatic, normocephalic, normal inspection Eye exam: Present: normal appearance, PERRL, EOMI. Absent: scleral icterus, c onjunctival injection, periorbital swelling ENT exam: Present: normal exam, mucous membranes moist Neck exam: Present: normal inspection. Absent: tenderness, meningismus, lymphadenopathy Respiratory exam: Present: normal lung sounds bilaterally. Absent: respiratory distress, wheezes, rales, rhonchi, stridor Cardiovascular Exam: Present: regular rate, normal rhythm, normal heart sounds. Absent: systolic murmur, diastolic murmur, rubs, gallop, clicks GI/Abdominal exam: Present: soft, normal bowel sounds. Absent: distended, tenderness, guarding, rebound, rigid Extremities exam: Present: normal inspection, full ROM, normal capillary refill. Absent: tenderness, pedal edema, joint swelling, calf tenderness Back exam: Present: normal inspection Neurological exam: Present: alert, oriented X3, CN II-XII intact Psychiatric exam: Present: normal affect, normal mood Skin exam: Present: warm, dry, intact, normal color. Absent: rash Course Vital Signs 10/07/23 10/07/23 18:43 19:57 Temperature 98 F Pulse Rate 68 70 Respiratory 18 16 Rate Blood Pressure 117/64 112/68 O2 Sat by Pulse 98 94 L Oximetry - Reevaluation(s) Reevaluation #1: Medical record is reviewed Reevaluation #2: Patient has no significant symptoms here in the ER Reevaluation #3: Patient informed results and questions answered Reevaluation #4: Was pt. sent in by a medical professional or institution (, PA, COMMUNITY SERVICES MANAGER, urgent care, hospital, or intermediate...) When possible be specific @ -no Did you speak to anyone other than the patient for history (EMS, parent, family, police, friend...)? What history was obtained from this source @ -no Did you review nursing and triage notes (agree or disagree)? Why? @ -agree Are old charts reviewed (outside hosp., previous admission, EMS record, old EKG, old radiological studies, urgent care reports/EKG's, intermediate records)? Report findings @ -yes Differential Diagnosis (chest pain, altered mental status, abdominal pain women, abdominal pain men, vaginal bleeding, weakness, fever, dyspnea, syncope, headache, dizziness, GI bleed, back pain, seizure, CVA, palpatations, mental health, musculoskeletal)? @ -prior EKG interpreted by me (3pts min.). @ -no X-rays interpreted by me (1pt min.). @ -no CT interpreted by me (1pt min.). @ -no U/S interpreted by me (1pt. min.). @ -no What testing was considered but not performed or refused? (CT, X-rays, U/S, labs)? Why? @ -none What meds were considered but not given or refused? Why? @ -none Did you discuss the management of the patient with other professionals (professionals i.e. , PA, COMMUNITY SERVICES MANAGER, lab, RT, psych nurse, outreach and education social worker, food and nutrition services assistant, teacher, chief technical officer, director of casework services)? Give summary @ -no Was smoking cessation discussed for >3mins.? @ -no Was critical care preformed (if so, how long)? @ -no Were there social determinants of health that impacted care today? How? (Homelessness, low income, unemployed, alcoholism, drug addiction, transportation, low edu. Level, literacy, decrease access to med. care, shelter, rehab)? @ -none Was there de-escalation of care discussed even if they declined (Discuss DNR or withdrawal of care, Hospice)? DNR status @ -no What co-morbidities impacted this encounter? (DM, HTN, Smoking, COPD, CAD, Cancer, CVA, ARF, Chemo, Hep., AIDS, mental health diagnosis, sleep apnea, morbid obesity)? @ -none Was patient admitted / discharged? Hospital course, mention meds given and route, prescriptions, significant lab abnormalities, going to OR and other pertinent info. @ - 73 male to the emergency department for evaluation of wound care and recheck, patient is here for evaluation of pacemaker site, site is normal evaluation patient can be discharged home Discharge Undiagnosed new problem with uncertain prognosis? @ -no Drug Therapy requiring intensive monitoring for toxicity (Heparin, Nitro, Insulin, Cardizem)? @ -no Were any procedures done? @ -no Diagnosis/symptom? @ -Wound recheck, wound care Acute, or Chronic, or Acute on Chronic? @ -Acute Uncomplicated (without systemic symptoms) or Complicated (systemic symptoms)? @ -Complicated Side effects of treatment? @ -no Exacerbation, Progression, or Severe Exacerbation? @ -exacerbation Poses a threat to life or bodily function? How? (Chest pain, [place], [place], pneumonia, PE, COPD, DKA, ARF, appy, cholecystitis, CVA, Diverticulitis, Homicidal, Suicidal, threat to staff... and all critical care pts) @ -no Medical Decision Making - Medical Decision Making 73 male to the emergency department for evaluation of recheck. Patient appears in no significant infection or inflammation, patient can be discharged home to continue follow-up Disposition Clinical Impression: Encounter for wound re-check Disposition: HOME SELF-CARE Condition: Good Instructions (If sedation given, give patient instructions): Acute Wound Care (ED) Is patient prescribed a controlled substance at d/c from ED?: No Referrals: Nahid Naylor MD [Primary Care Provider] - 1-2 days Time of Disposition: 19:35
[2023-10-07 20:10] VITALS: BP 112/68; PULSE 70; RESP 16
== END 2023-10-07 19:58 | disposition home or self-care (01) ==
LOC: EC 18:21
DX: Z48.00 Encounter for change or removal of nonsurgical wound dressing (principal); I25.10 Atherosclerotic heart disease of native coronary artery without angina pectoris; I50.9 Heart failure, unspecified; J44.9 Chronic obstructive pulmonary disease, unspecified; E78.5 Hyperlipidemia, unspecified; I25.2 Old myocardial infarction; G47.30 Sleep apnea, unspecified; Z79.899 Other long term (current) drug therapy; Z79.82 Long term (current) use of aspirin; Z87.891 Personal history of nicotine dependence; Z79.02 Long term (current) use of antithrombotics/antiplatelets
CPT/HCPCS: 99283

== ENCOUNTER 2023-10-19 09:32 | Observation (INO) | payer MEDICARE ==
[~2023-10-19 09:32] MED LIST changes: -HYDROmorphone 0.5 MG/0.5 ML SYRINGE IVP PRN; -LIDOCAINE 1% (10MG/ML) FOR IV START INTRADERMA PRN; -SODIUM CHLORIDE 0.9% IVPB ONE; -VANCOMYCIN IVPB ONE; +ceFAZolin 1 GM in SODIUM CHLORIDE 0.9% IRRIG BTL 250 ML IRRIGATION PRN
--- NOTE | 2023-10-19 09:46 | ED ---
General Adult HPI - General Stated complaint: Abn labs/bleeding Time Seen by Provider: 10/19/23 09:41 Source: patient, RN notes reviewed Mode of arrival: ambulatory Limitations: no limitations - History of Present Illness Initial comments: 73-year-old male presents emergency Department with chief complaint of pacemaker complicated. Patient was sent over by his machine sole leveler Dr. Orozco for admission secondary to bleeding, drainage from his site. He states he had it exchanged on 10/04/23. Patient denies any fevers chills. Patient denies any significant discomfort over the area. - Related Data Home Medications Medication Instructions Recorded Confirmed Ipratropium-Albuterol Nebulize 3 ml INHALATION RT-QID PRN 07/10/14 10/19/23 [Duoneb 0.5 mg-3 mg/3 ml Soln] Nitroglycerin Sl Tabs [Nitrostat] 0.4 mg SL Q5M PRN 07/10/14 10/19/23 Omalizumab [Xolair] 300 mg SQ Q28D 07/10/14 10/19/23 Tamsulosin HCl 0.4 mg PO DAILY 07/10/14 10/19/23 traMADol HCl [Ultram] 50 mg PO BID 07/10/14 10/19/23 Budesonide [Pulmicort] 0.5 mg INHALATION RT-BID 06/16/16 10/19/23 Spironolactone [Aldactone] 25 mg PO DAILY 06/16/16 10/19/23 Zafirlukast [Accolate] 20 mg PO BID 06/16/16 10/19/23 Clopidogrel [Plavix] 75 mg PO DAILY 10/10/20 10/19/23 Magnesium Oxide 400 mg PO DAILY 10/10/20 10/19/23 Metoprolol Succinate [Toprol XL] 50 mg PO BID 10/10/20 10/19/23 Multivitamins, Thera [Multivitamin 1 tab PO DAILY 02/06/21 10/19/23 (formulary)] Aspirin EC [Ecotrin Low Dose] 81 mg PO DAILY 03/20/21 10/19/23 Atorvastatin Calcium [Lipitor] 80 mg PO DAILY 03/20/21 10/19/23 Sacubitril/Valsartan [Entresto 24 1 tab PO BID 05/12/21 10/19/23 mg-26 mg Tablet] Evolocumab [Repatha Syringe] 140 mg SQ [id number] 09/30/23 10/19/23 Ezetimibe [Zetia] 10 mg PO DAILY 09/30/23 10/19/23 Allergies Allergy/AdvReac Type Severity Reaction Status Date / Time No Known Allergies Allergy Verified 10/19/23 11:30 Review of Systems ROS Statement: Those systems with pertinent positive or pertinent negative responses have been documented in the HPI. ROS Other: All systems not noted in ROS Statement are negative. Past Medical History Past Medical History: Coronary Artery Disease (CAD), Cancer, Chest Pain / Angina, Heart Failure, COPD, Hyperlipidemia, Myocardial Infarction (non Q-wave), Prostate Disorder, Sleep Apnea/CPAP/BIPAP Additional Past Medical History / Comment(s): See Ernesto's H&P,PAST CARDIAC ARREST X3. HAS DUAL AICD. HX SKIN BASAL CELL CA ON BACK. HAS HX KIDNEY STONES. BPH. Last Myocardial Infarction Date:: 2010 History of Any Multi-Drug Resistant Organisms: None Reported Past Surgical History: AICD, Coronary Bypass/CABG, Heart Catheterization With Stent, Hernia Repair, Orthopedic Surgery, Pacemaker Additional Past Surgical History / Comment(s): LT Hip Surgery, 1969. LT INGUINAL HERNIA. LT ARM SX, HAS METAL PALLAVI INSIDE D/T VEIN HARVESTING. LT ELBOW SX([facility]SA). STENTS X3, LAST 2006. QUAD CABG 2004. DUAL AICD 2008, & REWIRED [address] [facility]. TRAUMATIC AMP RT MIDDLE FINGERTIP,peripheral rt leg arterial stent Past Anesthesia/Blood Transfusion Reactions: No Reported Reaction Additional Past Anesthesia/Blood Transfusion Reaction / Comment(s): no hx of problems with prior blood transfusions Date of Last Stent Placement:: 2006 Type of Cardiac Device: Permanent Pacemaker, AICD Device Placement Date:: 2009 Past Psychological History: No Psychological Hx Reported Smoking Status: Former smoker Past Alcohol Use History: None Reported Past Drug Use History: None Reported - Past Family History Father Family Medical History: Myocardial Infarction ([place]) Additional Family Medical History / Comment(s): DAD AT AGE 72- [place] Mother Family Medical History: No Reported History Additional Family Medical History / Comment(s): MOM at age 93 General Exam Limitations: no limitations General appearance: alert, in no apparent distress Head exam: Present: atraumatic, normocephalic, normal inspection Neck exam: Present: normal inspection. Absent: tenderness, meningismus, lymphadenopathy Respiratory exam: Present: normal lung sounds bilaterally. Absent: respiratory distress, wheezes, rales, rhonchi, stridor Cardiovascular Exam: Present: regular rate, normal rhythm, normal heart sounds, other (left anterior chest wall over incision site there is swelling and some dry blood noted). Absent: systolic murmur, diastolic murmur, rubs, gallop, clicks Course Vital Signs 10/19/23 10/19/23 10:07 12:30 Temperature 98 F 98.4 F Pulse Rate 59 L 60 Respiratory 18 18 Rate Blood Pressure 100/59 130/71 O2 Sat by Pulse 96 96 Oximetry Medical Decision Making - Medical Decision Making Was pt. sent in by a medical professional or institution (GENARO Butler, RETAIL PHARMACIST, urgent care, hospital, or correction...) When possible be specific @ -No Did you speak to anyone other than the patient for history (EMS, parent, family, police, friend...)? What history was obtained from this source @ -No Did you review nursing and triage notes (agree or disagree)? Why? @ -I reviewed and agree with nursing and triage notes Were old charts reviewed (outside hosp., previous admission, EMS record, old EKG, old radiological studies, urgent care reports/EKG's, correction records)? Report findings @ -No old charts were reviewed Differential Diagnosis (chest pain, altered mental status, abdominal pain women, abdominal pain men, vaginal bleeding, weakness, fever, dyspnea, syncope, headache, dizziness, GI bleed, back pain, seizure, CVA, palpatations, mental health, musculoskeletal)? @ -Hematoma, cellulitis, pacemaker complication EKG interpreted by me (3pts min.). @ -None X-rays interpreted by me (1pt min.). @ -None done CT interpreted by me (1pt min.). @ -None done U/S interpreted by me (1pt. min.). @ -None done What testing was considered but not performed or refused? (CT, X-rays, U/S, labs)? Why? @ -None What meds were considered but not given or refused? Why? @ -None Did you discuss the management of the patient with other professionals (professionals i.e. Dr., PA, RETAIL PHARMACIST, lab, RT, psych nurse, mental health social worker, tire rebuilder, teacher, county records management officer, catalytic case operator)? Give summary @ -No Was smoking cessation discussed for >3mins.? @ -No Was critical care preformed (if so, how long)? @ -No Were there social determinants of health that impacted care today? How? (Homelessness, low income, unemployed, alcoholism, drug addiction, transportation, low edu. Level, literacy, decrease access to med. care, assisted, rehab)? @ -No Was there de-escalation of care discussed even if they declined (Discuss DNR or withdrawal of care, Hospice)? DNR status @ -No What co-morbidities impacted this encounter? (DM, HTN, Smoking, COPD, CAD, Cancer, CVA, ARF, Chemo, Hep., AIDS, mental health diagnosis, sleep apnea, morbid obesity)? @ -None Was patient admitted / discharged? Hospital course, mention meds given and route, prescriptions, significant lab abnormalities, going to OR and other pertinent info. @ -Patient will be admitted to cardiology for revision of his pacemaker. Patient was started on Kefzol. Patient is nothing by mouth. Undiagnosed new problem with uncertain prognosis? @ -No Drug Therapy requiring intensive monitoring for toxicity (Heparin, Nitro, Insulin, Cardizem)? @ -No Were any procedures done? @ -No Diagnosis/symptom? @ -Pacemaker complication Acute, or Chronic, or Acute on Chronic? @ -Acute Uncomplicated (without systemic symptoms) or Complicated (systemic symptoms)? @ -Uncomplicated Side effects of treatment? @ -No Exacerbation, Progression, or Severe Exacerbation? @ -No Poses a threat to life or bodily function? How? (Chest pain, [place], [place], pneumonia, PE, COPD, DKA, ARF, appy, cholecystitis, CVA, Diverticulitis, Homicidal, Suicidal, threat to staff... and all critical care pts) @ -No - Lab Data Result diagrams: 10/19/23 11:57 10/19/23 11:57 Disposition Clinical Impression: Pacemaker complications Disposition: ADMITTED IP TO THIS [facility] Time of Disposition: 09:46
[2023-10-19] MEDS ORDERED: NALOXONE 0.4 MG/ML 1 ML VIAL IV PRN (09:47)
[2023-10-19 12:18] LABS: ALT 30 U/L (4-49); AST 43 U/L (17-59); African American GFR (CKD) 83 (>60 ml/min/1.73 sqM); Albumin 3.9 g/dL (3.5-5.0); Alkaline Phosphatase 92 U/L (38-126); Anion Gap 7 mmol/L; Blood Urea Nitrogen 23 mg/dL (9-20); Calcium 9.2 mg/dL (8.4-10.2); Carbon Dioxide 31 mmol/L (22-30); Chloride 103 mmol/L (98-107); Glucose 84 mg/dL (74-99); Non-African American GFR(CKD) 72 (>60 ml/min/1.73 sqM); Potassium 5.6 mmol/L (3.5-5.1); Sodium 141 mmol/L (137-145); Total Bilirubin 0.8 mg/dL (0.2-1.3); Total Protein 7.3 g/dL (6.3-8.2)
[2023-10-19 12:31] LABS: HCT 41.3 % (39.0-53.0); HGB 13.4 gm/dL (13.0-17.5); Hypochromasia Slight; MCHC 32.5 g/dL (31.0-37.0); MCV 104.4 fL (80.0-100.0); Macrocytosis Slight; Mean Platelet Volume 8.1; Platelet Count 238 k/uL (150-450); RBC 3.96 m/uL (4.30-5.90); RDW 13.1 % (11.5-15.5); WBC 8.2 k/uL (3.8-10.6)
[2023-10-19 13:01] LABS: Eosinophils # (M) 0.16 k/uL (0-0.7); Lymphocytes # (M) 2.13 k/uL (1.0-4.8); Monocytes # (M) 0.49 k/uL (0-1.0); Neutrophils # (M) 5.41 k/uL (1.3-7.7); Neutrophils % (M) 66 %; Nucleated Red Blood Cells 0 /100 WBC (0-0); Total Cells Counted 100
[2023-10-19 13:02] LABS: Poikilocytosis (M) Present
[2023-10-19] MEDS ORDERED: ceFAZolin 1,000 MG in SODIUM CHLORIDE 0.9% IRRIGATIO 1,000 ML IRRIGATION ONE (14:21)
[2023-10-19 16:42] VITALS: RESP 16
[2023-10-19] MEDS ORDERED: SODIUM CHLORIDE 0.9% 500 ML 500 ML IV ONE (16:49)
[2023-10-19] MEDS ORDERED: LIDOCAINE 1% INJ 10MG/ML (20 ML MDV) ONE (19:01)
[2023-10-19] MEDS ORDERED: fentaNYL (PF) 50 MCG/ML 2 ML AMP ONE (19:10)
[2023-10-19] MEDS ORDERED: fentaNYL (PF) 50 MCG/1 ML VIAL IVP ONE (19:12)
[2023-10-19] MEDS ORDERED: LIDOCAINE 1% INJ 10MG/ML (20 ML MDV) SQ ONE ×2 (19:12→19:13)
--- NOTE | 2023-10-19 19:38 | P.HPCAR ---
History of Present Illness This is Dr. Orozco dictating an H/P on this patient The patient was interviewed and examined IMPRESSION / ASSESSMENT: ICD device pocket hematoma with pressure Mild leakage of old blood from the lateral aspect of the wound No evidence for infection Mildly elevated potassium of 5.6 on spironolactone Known ischemic cardio myopathy severe Status post recent upgrade to a biventricular ICD History of ventricular fibrillation coronary artery disease, on dual antiplatelet therapy PLAN: Hematoma evacuation IV antibiotics Levaquin continue cardiac medications Reduce Aldactone to 12.5 mg by mouth daily HPI Patient presented to the office today. He stated he had a sudden onset of swelling and slight leak of the lateral aspect of the wound quite abruptly No fever chills cough After implantation of the LV lead he feels a little better and can walk a little longer and is less short of breath ROS: No fever chills or rigors, no cough, phlegm or expectoration, no nausea, vomiting or diarrhea, no hematuria, dysuria, no musculoskeletal complaints, no strokes or seizures, no skin lesions. EXAMINATION: Prominent hematoma with purplish discoloration in the lateral and the wound site with was a small leak Normal heart sounds No JVD no orthopnea PND no heart failure exacerbation REVIEW OF LABS, ECG & MEDICAL DATA White count 8.2 thousand, hemoglobin 13.4 intermittent platelet count normal Potassium 5.6 sodium 141 Creatinine 1.03 Normal liver function Physical Exam Vitals: Vital Signs Temp Pulse Pulse Resp BP BP Pulse Ox 10/19/23 16:25 98 F 53 L 16 146/81 94 L 10/19/23 12:30 98.4 F 60 18 130/71 96 10/19/23 10:07 98 F 59 L 18 100/59 96 Intake and Output 10/19/23 10/19/23 10/19/23 06:59 14:59 22:59 Intake Total 300 Balance 300 Intake: IV 300 Other: Weight 95.254 kg 97.52 kg Past Medical History Past Medical History: Coronary Artery Disease (CAD), Cancer, Chest Pain / Angina, Heart Failure, COPD, Hyperlipidemia, Myocardial Infarction (non Q-wave), Prostate Disorder, Sleep Apnea/CPAP/BIPAP Additional Past Medical History / Comment(s): See Ernesto's H&P,PAST CARDIAC ARREST X3. HAS DUAL AICD. HX SKIN BASAL CELL CA ON BACK. HAS HX KIDNEY STONES. BPH. Last Myocardial Infarction Date:: 2010 History of Any Multi-Drug Resistant Organisms: None Reported Past Surgical History: AICD, Coronary Bypass/CABG, Heart Catheterization With Stent, Hernia Repair, Orthopedic Surgery, Pacemaker Additional Past Surgical History / Comment(s): LT Hip Surgery, 1969. LT INGUINAL HERNIA. LT ARM SX, HAS METAL PALLAVI INSIDE D/T VEIN HARVESTING. LT ELBOW SX([facility]). STENTS X3, LAST 2006. QUAD CABG 2004. DUAL AICD 2008, & REWIRED [address] [facility]. TRAUMATIC AMP RT MIDDLE FINGERTIP,peripheral rt leg arterial stent Past Anesthesia/Blood Transfusion Reactions: No Reported Reaction Additional Past Anesthesia/Blood Transfusion Reaction / Comment(s): no hx of problems with prior blood transfusions Date of Last Stent Placement:: 2006 Type of Cardiac Device: Permanent Pacemaker, AICD Device Placement Date:: 2009 Past Psychological History: No Psychological Hx Reported Smoking Status: Former smoker Past Alcohol Use History: None Reported Past Drug Use History: None Reported - Past Family History Father Family Medical History: Myocardial Infarction ([place]) Additional Family Medical History / Comment(s): DAD AT AGE 72- [place] Mother Family Medical History: No Reported History Additional Family Medical History / Comment(s): MOM at age 93 Physical Examination Vital Signs Temp Pulse Pulse Resp BP BP Pulse Ox 10/19/23 16:25 98 F 53 L 16 146/81 94 L 10/19/23 12:30 98.4 F 60 18 130/71 96 10/19/23 10:07 98 F 59 L 18 100/59 96 Intake and Output 10/19/23 10/19/23 10/19/23 06:59 14:59 22:59 Intake Total 300 Balance 300 Intake: IV 300 Other: Weight 95.254 kg 97.52 kg Results 10/19/23 11:57 10/19/23 11:57 Cardiac Enzymes 10/19/23 Range/Units 11:57 AST 43 (17-59) U/L CBC 10/19/23 Range/Units 11:57 WBC 8.2 (3.8-10.6) k/uL RBC 3.96 L (4.30-5.90) m/uL Hgb 13.4 (13.0-17.5) gm/dL Hct 41.3 (39.0-53.0) % Plt Count 238 (150-450) k/uL Comprehensive Metabolic Panel 10/19/23 Range/Units 11:57 Sodium 141 (137-145) mmol/L Potassium 5.6 H (3.5-5.1) mmol/L Chloride 103 (98-107) mmol/L Carbon Dioxide 31 H (22-30) mmol/L BUN 23 H (9-20) mg/dL Creatinine 1.03 (0.66-1.25) mg/dL Glucose 84 (74-99) mg/dL Calcium 9.2 (8.4-10.2) mg/dL AST 43 (17-59) U/L ALT 30 (4-49) U/L Alkaline Phosphatase 92 (38-126) U/L Total Protein 7.3 (6.3-8.2) g/dL Albumin 3.9 (3.5-5.0) g/dL Current Medications Generic Name Dose Route Start Last Admin Trade Name Freq PRN Reason Stop Dose Admin Cefazolin Sodium 2 gm/ Sodium 50 mls @ 100 mls/hr 10/19/23 21:00 10/19/23 19:12 Chloride IVPB 50 mls Q8H PATO Administration Protocol Naloxone HCl 0.2 mg 10/19/23 09:47 Naloxone 0.4 Mg/Ml 1 Ml Vial IV Q2M PRN Opioid Reversal Intake and Output 10/19/23 10/19/23 10/19/23 06:59 14:59 22:59 Intake Total 300 Balance 300 Intake: IV 300 Other: Weight 95.254 kg 97.52 kg Patient Weight 10/20/23 06:59 Weight 97.52 kg 10/19/23 11:57 10/19/23 11:57
[2023-10-19] MEDS ORDERED: ACETAMINOPHEN TAB 325 MG TAB PO PRN (19:41)
--- NOTE | 2023-10-19 19:41 | P.EPPROC ---
- EP Procedure Note Electrophysiology Procedure Note: Procedure Hematoma evacuation Details Patient received IV antibiotics today Patient was brought to the EP lab in a fasting state The ICD site area was prepped and draped as per protocol Under full sterile precautions and IV antibiotics, a stab wound was made in the lateral aspect of the incision Clotted blood was suctioned out The pressure in the pocket was relieved The wound was closed with 3 simple sutures and dressed Plan IV antibiotics overnight Reduce Aldactone to 12.5 mg by mouth daily Continue heart failure medications. Likely discharge tomorrow
--- NOTE | 2023-10-19 19:47 | P.PCN ---
Preoperative Diagnosis: Patient underwent EP procedure under conscious sedation/moderate sedation, monitoring of the level of consciousness and physiologic parameters including but not limited to vital signs and oxygenation. Patient tolerated the procedure well without any acute complications. 18 minutes
[2023-10-19] MEDS: BUDESONIDE 0.5 MG/2 ML NEBU INHALATION SCH (20:29)
[2023-10-19] MEDS: IPRATROPIUM-ALBUTEROL 3 ML NEB INHALATION PRN (20:29)
[2023-10-19] MEDS: METOPROLOL SUCCINATE (ER) 50 MG TAB.ER.24H PO SCH (21:21)
[2023-10-19] MEDS: SACUBITRIL/VALSARTAN 24 MG-26 MG TABLET PO SCH (21:21)
[2023-10-20] MEDS: BUDESONIDE 0.5 MG/2 ML NEBU INHALATION SCH (07:41)
[2023-10-20] MEDS: IPRATROPIUM-ALBUTEROL 3 ML NEB INHALATION PRN (07:41)
[2023-10-20 08:07] VITALS: BP 124/64; PULSE 64; TEMP 97.9
[2023-10-20] MEDS: SACUBITRIL/VALSARTAN 24 MG-26 MG TABLET PO SCH (08:16)
[2023-10-20] MEDS: METOPROLOL SUCCINATE (ER) 50 MG TAB.ER.24H PO SCH (08:17)
[2023-10-20] MEDS ORDERED: ATORVASTATIN 80 MG TAB PO SCH (09:00)
[2023-10-20] MEDS ORDERED: EZETIMIBE 10 MG TAB PO SCH (09:00)
[2023-10-20] MEDS ORDERED: CLOPIDOGREL 75 MG TAB PO SCH (09:00)
[2023-10-20] MEDS ORDERED: TAMSULOSIN 0.4 MG CAP.ER.24H PO SCH (09:00)
[2023-10-20] MEDS ORDERED: ASPIRIN 81 MG PO SCH (09:00)
--- NOTE | 2023-10-20 16:35 | P.DS ---
Providers Date of admission: 10/19/23 09:49 Attending physician: Ryan Orozco Primary care physician: [facility] Course: Patient is doing well ICD generator site is healing well. No stroke H Very mild swelling following a recreation of blood clots and hematoma No chest discomfort No dizziness no lightheadedness On examination blood pressure is normal heart sounds are normal Breath sounds are clear Impression Biventricular ICD upgrade recently On aspirin and Plavix patient and hematoma with slight oozing and wound dehiscence on the lateral aspect of the incision, very small area He underwent hematoma evacuation. This is predominantly blood clots Primary closure was performed IV antibiotics given Plan Discharge home today Follow up with me on Tuesday afternoon for a wound check Stop aspirin Continue Plavix with a heart failure medications Plan - Discharge Summary New Discharge Prescriptions: New Spironolactone 12.5 mg PO DAILY #90 tablet Discontinued Spironolactone [Aldactone] 25 mg PO DAILY No Action traMADol HCl [Ultram] 50 mg PO BID Tamsulosin HCl 0.4 mg PO DAILY Omalizumab [Xolair] 300 mg SQ Q28D Nitroglycerin Sl Tabs [Nitrostat] 0.4 mg SL Q5M PRN PRN Reason: Chest Pain Ipratropium-Albuterol Nebulize [Duoneb 0.5 mg-3 mg/3 ml Soln] 3 ml INHALATION RT-QID PRN PRN Reason: Shortness Of Breath Zafirlukast [Accolate] 20 mg PO BID Budesonide [Pulmicort] 0.5 mg INHALATION RT-BID Clopidogrel [Plavix] 75 mg PO DAILY Magnesium Oxide 400 mg PO DAILY Metoprolol Succinate [Toprol XL] 50 mg PO BID Multivitamins, Thera [Multivitamin (formulary)] 1 tab PO DAILY Aspirin EC [Ecotrin Low Dose] 81 mg PO DAILY Evolocumab [Repatha Syringe] 140 mg SQ [id number] Atorvastatin Calcium [Lipitor] 80 mg PO DAILY Sacubitril/Valsartan [Entresto 24 mg-26 mg Tablet] 1 tab PO BID Ezetimibe [Zetia] 10 mg PO DAILY Discharge Medication List Ipratropium-Albuterol Nebulize [Duoneb 0.5 mg-3 mg/3 ml Soln] 3 ml INHALATION RT-QID PRN 07/10/14 [History] Nitroglycerin Sl Tabs [Nitrostat] 0.4 mg SL Q5M PRN 07/10/14 [History] Omalizumab [Xolair] 300 mg SQ Q28D 07/10/14 [History] Tamsulosin HCl 0.4 mg PO DAILY 07/10/14 [History] traMADol HCl [Ultram] 50 mg PO BID 07/10/14 [History] Budesonide [Pulmicort] 0.5 mg INHALATION RT-BID 06/16/16 [History] Zafirlukast [Accolate] 20 mg PO BID 06/16/16 [History] Clopidogrel [Plavix] 75 mg PO DAILY 10/10/20 [History] Magnesium Oxide 400 mg PO DAILY 10/10/20 [History] Metoprolol Succinate [Toprol XL] 50 mg PO BID 10/10/20 [History] Multivitamins, Thera [Multivitamin (formulary)] 1 tab PO DAILY 02/06/21 [History] Aspirin EC [Ecotrin Low Dose] 81 mg PO DAILY 03/20/21 [History] Atorvastatin Calcium [Lipitor] 80 mg PO DAILY 03/20/21 [History] Sacubitril/Valsartan [Entresto 24 mg-26 mg Tablet] 1 tab PO BID 05/12/21 [History] Evolocumab [Repatha Syringe] 140 mg SQ [id number] 09/30/23 [History] Ezetimibe [Zetia] 10 mg PO DAILY 09/30/23 [History] Spironolactone 12.5 mg PO DAILY #90 tablet 10/19/23 [Rx] Follow up Appointment(s)/Referral(s): Ryan Orozco MD [STAFF PHYSICIAN] - 1 Week (Office will call with appointmetnt time and date.) Nahid Naylor MD [Primary Care Provider] - 1-2 days Activity/Diet/Wound Care/Special Instructions: Keep wound dry for 7 days Discharge Disposition: HOME SELF-CARE
== END 2023-10-20 10:33 | disposition home or self-care (01) ==
LOC: CATHEP 09:32 → 6NMEDSUR 09:49
PROVIDERS: ADMIT Internal Medicine Clinical Cardiac Electrophysiology; ATTEND Internal Medicine Clinical Cardiac Electrophysiology
DX: T82.867A Thrombosis due to cardiac prosthetic devices, implants and grafts, initial encounter (principal); Y71.1 Therapeutic (nonsurgical) and rehabilitative cardiovascular devices associated with adverse incidents; I25.10 Atherosclerotic heart disease of native coronary artery without angina pectoris; I25.5 Ischemic cardiomyopathy; I11.0 Hypertensive heart disease with heart failure; I50.9 Heart failure, unspecified; J44.9 Chronic obstructive pulmonary disease, unspecified; E78.5 Hyperlipidemia, unspecified; G47.30 Sleep apnea, unspecified; N40.0 Benign prostatic hyperplasia without lower urinary tract symptoms; I25.2 Old myocardial infarction; Z85.828 Personal history of other malignant neoplasm of skin; Z86.74 Personal history of sudden cardiac arrest; Z87.891 Personal history of nicotine dependence; Z95.5 Presence of coronary angioplasty implant and graft; Z95.810 Presence of automatic (implantable) cardiac defibrillator; Z79.02 Long term (current) use of antithrombotics/antiplatelets; Z79.82 Long term (current) use of aspirin; Z79.899 Other long term (current) drug therapy
CPT/HCPCS: 99285; 94640 ×2; 10140; 80053; 83605; 85025; 87040; G0378 ×2; J0690 ×2; J2001; J3010

== ENCOUNTER 2023-10-23 20:32 | Emergency (ER) | payer MEDICARE ==
--- NOTE | 2023-10-23 22:07 | ED ---
General Adult HPI - General Chief complaint: Recheck/Abnormal Lab/Rx Stated complaint: Post op complicatons Time Seen by Provider: 10/23/23 20:47 Source: patient Mode of arrival: ambulatory Limitations: no limitations - History of Present Illness Initial comments: 73-year-old male with past medical history of congestive heart failure who presents emergency department with pacemaker complication. Patient had a pacemaker placed on October [address] Pires. He did have a hematoma formation and had evacuation of the hematoma on the . Patient had a pressure dressing in place. States that today he was watching TV when he felt like his shirt became wet. He noticed dark blood on his shirt and therefore came into the emergency department right away. Denies any trauma to the site. He does take Plavix. No other alleviating, precipitating or modifying factors - Related Data Home Medications Medication Instructions Recorded Confirmed Ipratropium-Albuterol Nebulize 3 ml INHALATION RT-QID PRN 07/10/14 10/23/23 [Duoneb 0.5 mg-3 mg/3 ml Soln] Nitroglycerin Sl Tabs [Nitrostat] 0.4 mg SL Q5M PRN 07/10/14 10/23/23 Omalizumab [Xolair] 300 mg SQ Q28D 07/10/14 10/23/23 Tamsulosin HCl 0.4 mg PO DAILY 07/10/14 10/23/23 traMADol HCl [Ultram] 50 mg PO BID 07/10/14 10/23/23 Budesonide [Pulmicort] 0.5 mg INHALATION RT-BID 06/16/16 10/23/23 Zafirlukast [Accolate] 20 mg PO BID 06/16/16 10/23/23 Clopidogrel [Plavix] 75 mg PO DAILY 10/10/20 10/23/23 Magnesium Oxide 400 mg PO DAILY 10/10/20 10/23/23 Metoprolol Succinate [Toprol XL] 50 mg PO BID 10/10/20 10/23/23 Multivitamins, Thera [Multivitamin 1 tab PO DAILY 02/06/21 10/23/23 (formulary)] Aspirin EC [Ecotrin Low Dose] 81 mg PO DIRECTED 03/20/21 10/23/23 Atorvastatin Calcium [Lipitor] 80 mg PO DAILY 03/20/21 10/23/23 Sacubitril/Valsartan [Entresto 24 1 tab PO BID 05/12/21 10/23/23 mg-26 mg Tablet] Evolocumab [Repatha Syringe] 140 mg SQ [id number] 09/30/23 10/23/23 Ezetimibe [Zetia] 10 mg PO DAILY 09/30/23 10/23/23 Previous Rx's Medication Instructions Recorded Spironolactone 12.5 mg PO DAILY #90 tablet 10/19/23 Allergies Allergy/AdvReac Type Severity Reaction Status Date / Time No Known Allergies Allergy Verified 10/23/23 21:45 Review of Systems ROS Statement: Those systems with pertinent positive or pertinent negative responses have been documented in the HPI. ROS Other: All systems not noted in ROS Statement are negative. Past Medical History Past Medical History: Coronary Artery Disease (CAD), Cancer, Chest Pain / Angina, Heart Failure, COPD, Hyperlipidemia, Myocardial Infarction (non Q-wave), Prostate Disorder, Sleep Apnea/CPAP/BIPAP Additional Past Medical History / Comment(s): See Ernesto's H&P,PAST CARDIAC ARREST X3. HAS DUAL AICD. HX SKIN BASAL CELL CA ON BACK. HAS HX KIDNEY STONES. BPH. Last Myocardial Infarction Date:: 2010 History of Any Multi-Drug Resistant Organisms: None Reported Past Surgical History: AICD, Coronary Bypass/CABG, Heart Catheterization With Stent, Hernia Repair, Orthopedic Surgery, Pacemaker Additional Past Surgical History / Comment(s): LT Hip Surgery, 1969. LT INGUINAL HERNIA. LT ARM SX, HAS METAL PALLAVI INSIDE D/T VEIN HARVESTING. LT ELBOW SX(BURSA). STENTS X3, LAST 2006. QUAD CABG 2004. DUAL AICD 2008, & REWIRED 2010 - [facility]. TRAUMATIC AMP RT MIDDLE FINGERTIP,peripheral rt leg arterial stent Past Anesthesia/Blood Transfusion Reactions: No Reported Reaction Additional Past Anesthesia/Blood Transfusion Reaction / Comment(s): no hx of problems with prior blood transfusions Date of Last Stent Placement:: 2006 Type of Cardiac Device: Permanent Pacemaker, AICD Device Placement Date:: 2009 Past Psychological History: No Psychological Hx Reported Smoking Status: Former smoker Past Alcohol Use History: None Reported Past Drug Use History: None Reported - Past Family History Father Family Medical History: Myocardial Infarction ([place]) Additional Family Medical History / Comment(s): DAD AT AGE 72- [place] Mother Family Medical History: No Reported History Additional Family Medical History / Comment(s): MOM at age 93 General Exam Limitations: no limitations General appearance: alert, in no apparent distress Head exam: Present: atraumatic, normocephalic, normal inspection Eye exam: Present: normal appearance, PERRL, EOMI. Absent: scleral icterus, conjunctival injection, periorbital swelling ENT exam: Present: normal exam, mucous membranes moist Neck exam: Present: normal inspection. Absent: tenderness, meningismus, lymphadenopathy Respiratory exam: Present: normal lung sounds bilaterally, chest wall tenderness (Pacemaker has a saturated dressing with brown blood. Dressing is removed and there is a slow trickle of thin blood. No signs of infection. No dehiscence of the wound). Absent: respiratory distress, wheezes, rales, rhonchi, stridor Cardiovascular Exam: Present: regular rate, normal rhythm, normal heart sounds. Absent: systolic murmur, diastolic murmur, rubs, gallop, clicks GI/Abdominal exam: Present: soft, normal bowel sounds. Absent: distended, tenderness, guarding, rebound, rigid Extremities exam: Present: normal inspection, full ROM, normal capillary refill. Absent: tenderness, pedal edema, joint swelling, calf tenderness Back exam: Present: normal inspection Neurological exam: Present: alert, oriented X3, CN II-XII intact Psychiatric exam: Present: normal affect, normal mood Skin exam: Present: warm, dry, intact, normal color. Absent: rash Course Vital Signs 10/23/23 10/23/23 20:33 22:39 Temperature 97.5 F L 98.7 F Pulse Rate 145 H 79 Respiratory 18 16 Rate Blood Pressure 150/66 127/69 O2 Sat by Pulse 99 97 Oximetry Medical Decision Making - Medical Decision Making Was pt. sent in by a medical professional or institution (, PA, HELIX COIL WINDER, urgent care, hospital, or fci...) When possible be specific @ -No Did you speak to anyone other than the patient for history (EMS, parent, family, police, friend...)? What history was obtained from this source @ -No Did you review nursing and triage notes (agree or disagree)? Why? @ -I reviewed and agree with nursing and triage notes Were old charts reviewed (outside hosp., previous admission, EMS record, old EKG, old radiological studies, urgent care reports/EKG's, fci records)? Report findings @ -I reviewed patient's operative note from the Differential Diagnosis (chest pain, altered mental status, abdominal pain women, abdominal pain men, vaginal bleeding, weakness, fever, dyspnea, syncope, headache, dizziness, GI bleed, back pain, seizure, CVA, palpatations, mental health, musculoskeletal)? @ -Arterial bleed, venous bleed, hematoma formation EKG interpreted by me (3pts min.). @ -Not done X-rays interpreted by me (1pt min.). @ -None done CT interpreted by me (1pt min.). @ -None done U/S interpreted by me (1pt. min.). @ -None done What testing was considered but not performed or refused? (CT, X-rays, U/S, labs)? Why? @ -None What meds were considered but not given or refused? Why? @ -None Did you discuss the management of the patient with other professionals (professionals i.e. , PA, [employer] COIL WINDER, lab, RT, psych nurse, group social worker, rubber goods supervisor, teacher, flight deck officer, shoe caser)? Give summary @ -Spoke with Dr. Camp Was smoking cessation discussed for >3mins.? @ -No Was critical care preformed (if so, how long)? @ -No Were there social determinants of health that impacted care today? How? (Homelessness, low income, unemployed, alcoholism, drug addiction, transportation, low edu. Level, literacy, decrease access to med. care, [facility], rehab)? @ -No Was there de-escalation of care discussed even if they declined (Discuss DNR or withdrawal of care, Hospice)? DNR status @ -No What co-morbidities impacted this encounter? (DM, HTN, Smoking, COPD, CAD, Cancer, CVA, ARF, Chemo, Hep., AIDS, mental health diagnosis, sleep apnea, morbid obesity)? @ -Congestive heart failure Was patient admitted / discharged? Hospital course, mention meds given and route, prescriptions, significant lab abnormalities, going to OR and other pertinent info. @ -Discharge. Upon arrival patient was placed in room 7. I did remove the dressing which did demonstrate some bleeding. Discussed the case with Dr. Camp. I am able to express the area and release of some blood. Does appear to stop the bleeding at this time. I did place pressure dressing. Patient discharged home. He has a follow-up appointment on Tuesday. Instructed to return for any new or worsening symptoms. patient is to continue taking his Plavix Undiagnosed new problem with uncertain prognosis? @ -No Drug Therapy requiring intensive monitoring for toxicity (Heparin, Nitro, Insulin, Cardizem)? @ -No Were any procedures done? @ -No Diagnosis/symptom? @ -Acute hematoma formation surrounding pacemaker Acute, or Chronic, or Acute on Chronic? @ -Acute, recurrent Uncomplicated (without systemic symptoms) or Complicated (systemic symptoms)? @ -Uncomplicated Side effects of treatment? @ -No Exacerbation, Progression, or Severe Exacerbation? @ -No Poses a threat to life or bodily function? How? (Chest pain, [place], [place], pneumonia, PE, COPD, DKA, ARF, appy, cholecystitis, CVA, Diverticulitis, Homicidal, Suicidal, threat to staff... and all critical care pts) @ -No Disposition Clinical Impression: Pacemaker complications Disposition: HOME SELF-CARE Condition: Stable Instructions (If sedation given, give patient instructions): Pacemaker (DC) Additional Instructions: Please keep the area clean and dry. Keep the dressing on. Follow up at your scheduled appointment on Tuesday Is patient prescribed a controlled substance at d/c from ED?: No Referrals: Nahid Naylor MD [Primary Care Provider] - 1-2 days Ryan Orozco MD [STAFF PHYSICIAN] - 1-2 days Time of Disposition: 22:07
[2023-10-23 22:59] VITALS: BP 127/69; PULSE 79; RESP 16; TEMP 98.7
== END 2023-10-23 22:59 | disposition home or self-care (01) ==
LOC: EC 20:32
DX: T82.110A Breakdown (mechanical) of cardiac electrode, initial encounter (principal); E78.5 Hyperlipidemia, unspecified; G47.30 Sleep apnea, unspecified; I25.10 Atherosclerotic heart disease of native coronary artery without angina pectoris; I25.2 Old myocardial infarction; I50.9 Heart failure, unspecified; J44.9 Chronic obstructive pulmonary disease, unspecified; Z79.899 Other long term (current) drug therapy; Z79.02 Long term (current) use of antithrombotics/antiplatelets; Z79.51 Long term (current) use of inhaled steroids; Z87.891 Personal history of nicotine dependence; Z95.1 Presence of aortocoronary bypass graft
CPT/HCPCS: 99283

== ENCOUNTER 2023-10-26 16:24 | Inpatient (IN) | payer MEDICARE ==
[2023-10-26] MEDS ORDERED: VANCOMYCIN IV PER PHARMACY 1 EACH MISC MISCELLANE PRN (16:35)
[2023-10-26] MEDS ORDERED: VANCOMYCIN 1,500 MG in SODIUM CHLORIDE 0.9% 500 ML 500 ML IVPB STA (16:36)
--- NOTE | 2023-10-26 16:53 | ED ---
General Adult HPI - General Chief complaint: Recheck/Abnormal Lab/Rx Stated complaint: post op comp-pacemaker Time Seen by Provider: 10/26/23 16:30 Source: patient Mode of arrival: ambulatory - History of Present Illness Initial comments: 73-year-old male with recent pacemaker placement presents to the emergency room under the direction of Dr. Orozco. Patient went today to have his stitches taken out. Patient had evacuation of hematoma completed on October 19. He had some bleeding on October 23 which was easily controlled and re-bandaged. At the appointment today the stitches were removed and there was some dehiscence to the lateral aspect of the incision. Dr. Pires sent the patient back into the hospital for antibiotic empiric coverage and revaluation of the surgical incision. Patient has not had any fevers or chills. The pain at the site. No rebleeding. No other alleviating, precipitating or modifying factors - Related Data Home Medications Medication Instructions Recorded Confirmed Ipratropium-Albuterol Nebulize 3 ml INHALATION RT-TID 07/10/14 10/26/23 [Duoneb 0.5 mg-3 mg/3 ml Soln] Nitroglycerin Sl Tabs [Nitrostat] 0.4 mg SL Q5M PRN 07/10/14 10/26/23 Omalizumab [Xolair] 300 mg SQ Q28D 07/10/14 10/26/23 Tamsulosin HCl 0.4 mg PO DAILY 07/10/14 10/26/23 traMADol HCl [Ultram] 50 mg PO BID 07/10/14 10/26/23 Budesonide [Pulmicort] 0.5 mg INHALATION RT-BID 06/16/16 10/26/23 Zafirlukast [Accolate] 20 mg PO BID 06/16/16 10/26/23 Clopidogrel [Plavix] 75 mg PO DAILY 10/10/20 10/26/23 Magnesium Oxide 400 mg PO DAILY 10/10/20 10/26/23 Metoprolol Succinate [Toprol XL] 50 mg PO BID 10/10/20 10/26/23 Multivitamins, Thera [Multivitamin 1 tab PO DAILY 02/06/21 10/26/23 (formulary)] Atorvastatin Calcium [Lipitor] 80 mg PO DAILY 03/20/21 10/26/23 Sacubitril/Valsartan [Entresto 24 1 tab PO BID 05/12/21 10/26/23 mg-26 mg Tablet] Evolocumab [Repatha Syringe] 140 mg SQ [id number] 09/30/23 10/26/23 Ezetimibe [Zetia] 10 mg PO DAILY 09/30/23 10/26/23 Previous Rx's Medication Instructions Recorded Spironolactone 12.5 mg PO DAILY #90 tablet 10/19/23 Allergies Allergy/AdvReac Type Severity Reaction Status Date / Time No Known Allergies Allergy Verified 10/26/23 16:27 Review of Systems ROS Statement: Those systems with pertinent positive or pertinent negative responses have been documented in the HPI. ROS Other: All systems not noted in ROS Statement are negative. Past Medical History Past Medical History: Coronary Artery Disease (CAD), Cancer, Chest Pain / Angina, Heart Failure, COPD, Hyperlipidemia, Myocardial Infarction (non Q-wave), Prostate Disorder, Sleep Apnea/CPAP/BIPAP Additional Past Medical History / Comment(s): See Ernesto's H&P,PAST CARDIAC ARREST X3. HAS DUAL AICD. HX SKIN BASAL CELL CA ON BACK. HAS HX KIDNEY STONES. BPH. Last Myocardial Infarction Date:: 2010 History of Any Multi-Drug Resistant Organisms: None Reported Past Surgical History: AICD, Coronary Bypass/CABG, Heart Catheterization With Stent, Hernia Repair, Orthopedic Surgery, Pacemaker Additional Past Surgical History / Comment(s): LT Hip Surgery, 1969. LT INGUINAL HERNIA. LT ARM SX, HAS METAL PALLAVI INSIDE D/T VEIN HARVESTING. LT ELBOW SX([facility]). STENTS X3, LAST 2006. QUAD CABG 2004. DUAL AICD 2008, & REWIRED [address] [facility]. TRAUMATIC AMP RT MIDDLE FINGERTIP,peripheral rt leg arterial stent Past Anesthesia/Blood Transfusion Reactions: No Reported Reaction Additional Past Anesthesia/Blood Transfusion Reaction / Comment(s): no hx of problems with prior blood transfusions Date of Last Stent Placement:: 2006 Type of Cardiac Device: Permanent Pacemaker, AICD Device Placement Date:: 2009 Past Psychological History: No Psychological Hx Reported Smoking Status: Former smoker Past Alcohol Use History: None Reported Past Drug Use History: None Reported - Past Family History Father Family Medical History: Myocardial Infarction ([place]) Additional Family Medical History / Comment(s): DAD AT AGE 72- [place] Mother Family Medical History: No Reported History Additional Family Medical History / Comment(s): MOM at age 93 General Exam General appearance: alert, in no apparent distress Head exam: Present: atraumatic, normocephalic, normal inspection Eye exam: Present: normal appearance, PERRL, EOMI. Absent: scleral icterus, conjunctival injection, periorbital swelling ENT exam: Present: normal exam, mucous membranes moist Respiratory exam: Present: normal lung sounds bilaterally, other (Incision on left anterior chest wall is dehisced on the lateral third aspect. Surrounding tissue is wet and fibrinous. No exposed underlying device. No bleeding). Absent: respiratory distress, wheezes, rales, rhonchi, stridor Cardiovascular Exam: Present: regular rate, normal rhythm, normal heart sounds. Absent: systolic murmur, diastolic murmur, rubs, gallop, clicks Extremities exam: Present: normal inspection, full ROM, normal capillary refill. Absent: tenderness, pedal edema, joint swelling, calf tenderness Course Vital Signs 10/26/23 10/26/23 10/26/23 16:26 18:21 20:00 Temperature 98.0 F Pulse Rate 69 61 65 Respiratory 18 18 18 Rate Blood Pressure 123/63 141/52 148/70 O2 Sat by Pulse 95 95 Oximetry Medical Decision Making - Medical Decision Making Was pt. sent in by a medical professional or institution (, PA, FEATURE WRITER, urgent care, hospital, or group home...) When possible be specific @ -Dr. Orozco Did you speak to anyone other than the patient for history (EMS, parent, family, police, friend...)? What history was obtained from this source @ -Dr. Orozco Did you review nursing and triage notes (agree or disagree)? Why? @ -I reviewed and agree with nursing and triage notes Were old charts reviewed (outside hosp., previous admission, EMS record, old EKG, old radiological studies, urgent care reports/EKG's, group home records)? Report findings @ I reviewed patient's chart from October 23 Differential Diagnosis (chest pain, altered mental status, abdominal pain women, abdominal pain men, vaginal bleeding, weakness, fever, dyspnea, syncope, headache, dizziness, GI bleed, back pain, seizure, CVA, palpatations, mental health, musculoskeletal)? @ -Wound dehiscence, hematoma, pacemaker site infection EKG interpreted by me (3pts min.). @ -Yes and demonstrates atrial ventricular pacemaker with a rate of 60. ID interval 244. QRS 96. QTC of 425. No acute ST segment elevations or depressions X-rays interpreted by me (1pt min.). @ -Yes and demonstrates some pulmonary vascular congestion CT interpreted by me (1pt min.). @ -None done U/S interpreted by me (1pt. min.). @ -None done What testing was considered but not performed or refused? (CT, X-rays, U/S, labs)? Why? @ -None What meds were considered but not given or refused? Why? @ -None Did you discuss the management of the patient with other professionals (professionals i.e. , PA, FEATURE WRITER, lab, RT, psych nurse, social service worker, wall covering contractor, teacher, air defense artillery officer, upper caser)? Give summary @ -spoke with Dr. Orozco who will admit patient Was smoking cessation discussed for >3mins.? @ -No Was critical care preformed (if so, how long)? @ -No Were there social determinants of health that impacted care today? How? (Homelessness, low income, unemployed, alcoholism, drug addiction, transportation, low edu. Level, literacy, decrease access to med. care, longterm, rehab)? @ -No Was there de-escalation of care discussed even if they declined (Discuss DNR or withdrawal of care, Hospice)? DNR status @ -No What co-morbidities impacted this encounter? (DM, HTN, Smoking, COPD, CAD, Cancer, CVA, ARF, Chemo, Hep., AIDS, mental health diagnosis, sleep apnea, morbid obesity)? @ -Pacemaker placement Was patient admitted / discharged? Hospital course, mention meds given and route, prescriptions, significant lab abnormalities, going to OR and other pertinent info. @ -Arrival patient was placed into trauma 1. Thorough history and physical exam was performed. IV is established. I spoke with Dr. Orozco. Requested the patient be given Zosyn and vancomycin. Blood culture obtained. Patient initiated on antibiotics. Patient will be made nothing by mouth at midnight for surgery tomorrow Undiagnosed new problem with uncertain prognosis? @ -yes Drug Therapy requiring intensive monitoring for toxicity (Heparin, Nitro, Insulin, Cardizem)? @ -No Were any procedures done? @ -No Diagnosis/symptom? @ -Acute surgical dehiscence-pacemaker site Acute, or Chronic, or Acute on Chronic? @ -acute Uncomplicated (without systemic symptoms) or Complicated (systemic symptoms)? @ -complicated Side effects of treatment? @ -No Exacerbation, Progression, or Severe Exacerbation? @ -No Poses a threat to life or bodily function? How? (Chest pain, [place], [place], pneumonia, PE, COPD, DKA, ARF, appy, cholecystitis, CVA, Diverticulitis, Homicidal, Suicidal, threat to staff... and all critical care pts) @ -No - Lab Data Result diagrams: 10/26/23 16:49 10/26/23 16:49 Lab Results 10/26/23 10/26/23 10/26/23 Range/Units 16:49 16:49 16:49 WBC 6.2 (3.8-10.6) k/uL RBC 3.74 L (4.30-5.90) m/uL Hgb 12.8 L (13.0-17.5) gm/dL Hct 38.9 L (39.0-53.0) % MCV 104.1 H (80.0-100.0) fL MCH 34.2 (25.0-35.0) pg MCHC 32.9 (31.0-37.0) g/dL RDW 13.1 (11.5-15.5) % Plt Count 189 (150-450) k/uL MPV 7.9 Neutrophils % (Manual) 60 % Lymphocytes % (Manual) 31 % Monocytes % (Manual) 4 % Eosinophils % (Manual) 5 % Neutrophils # (Manual) 3.72 (1.3-7.7) k/uL Lymphocytes # (Manual) 1.92 (1.0-4.8) k/uL Monocytes # (Manual) 0.25 (0-1.0) k/uL Eosinophils # (Manual) 0.31 (0-0.7) k/uL Nucleated RBCs 0 (0-0) /100 WBC Manual Slide Review Performed Macrocytosis Slight PT 10.5 (10.0-12.5) sec INR 1.0 (<1.2) APTT 23.2 (22.0-30.0) sec Sodium 139 (137-145) mmol/L Potassium 4.7 (3.5-5.1) mmol/L Chloride 100 (98-107) mmol/L Carbon Dioxide 28 (22-30) mmol/L Anion Gap 11 mmol/L BUN 18 (9-20) mg/dL Creatinine 0.97 (0.66-1.25) mg/dL Est GFR (CKD-EPI)AfAm 90 (>60 ml/min/1.73 sqM) Est GFR (CKD-EPI)NonAf 78 (>60 ml/min/1.73 sqM) Glucose 89 (74-99) mg/dL Plasma Lactic Acid Eren (0.7-2.0) mmol/L Calcium 9.1 (8.4-10.2) mg/dL Total Bilirubin 0.5 (0.2-1.3) mg/dL AST 35 (17-59) U/L ALT 23 (4-49) U/L Alkaline Phosphatase 86 (38-126) U/L Total Protein 6.9 (6.3-8.2) g/dL Albumin 3.7 (3.5-5.0) g/dL 10/26/23 Range/Units 16:49 WBC (3.8-10.6) k/uL RBC (4.30-5.90) m/uL Hgb (13.0-17.5) gm/dL Hct (39.0-53.0) % MCV (80.0-100.0) fL MCH (25.0-35.0) pg MCHC (31.0-37.0) g/dL RDW (11.5-15.5) % Plt Count (150-450) k/uL MPV Neutrophils % (Manual) % Lymphocytes % (Manual) % Monocytes % (Manual) % Eosinophils % (Manual) % Neutrophils # (Manual) (1.3-7.7) k/uL Lymphocytes # (Manual) (1.0-4.8) k/uL Monocytes # (Manual) (0-1.0) k/uL Eosinophils # (Manual) (0-0.7) k/uL Nucleated RBCs (0-0) /100 WBC Manual Slide Review Macrocytosis PT (10.0-12.5) sec INR (<1.2) APTT (22.0-30.0) sec Sodium (137-145) mmol/L Potassium (3.5-5.1) mmol/L Chloride (98-107) mmol/L Carbon Dioxide (22-30) mmol/L Anion Gap mmol/L BUN (9-20) mg/dL Creatinine (0.66-1.25) mg/dL Est GFR (CKD-EPI)AfAm (>60 ml/min/1.73 sqM) Est GFR (CKD-EPI)NonAf (>60 ml/min/1.73 sqM) Glucose (74-99) mg/dL Plasma Lactic Acid Eren 1.1 (0.7-2.0) mmol/L Calcium (8.4-10.2) mg/dL Total Bilirubin (0.2-1.3) mg/dL AST (17-59) U/L ALT (4-49) U/L Alkaline Phosphatase (38-126) U/L Total Protein (6.3-8.2) g/dL Albumin (3.5-5.0) g/dL Disposition Clinical Impression: Pacemaker complications Disposition: ADMITTED IP TO THIS [facility] Condition: Serious Is patient prescribed a controlled substance at d/c from ED?: No Time of Disposition: 16:53 Decision to Admit Reason: Admit from EC Decision Date: 10/26/23 Decision Time: 16:53
[2023-10-26] MEDS ORDERED: NALOXONE 0.4 MG/ML 1 ML VIAL IV PRN (16:59)
[2023-10-26 17:18] LABS: ALT 23 U/L (4-49); AST 35 U/L (17-59); African American GFR (CKD) 90 (>60 ml/min/1.73 sqM); Albumin 3.7 g/dL (3.5-5.0); Alkaline Phosphatase 86 U/L (38-126); Anion Gap 11 mmol/L; Blood Urea Nitrogen 18 mg/dL (9-20); Calcium 9.1 mg/dL (8.4-10.2); Carbon Dioxide 28 mmol/L (22-30); Chloride 100 mmol/L (98-107); Glucose 89 mg/dL (74-99); Non-African American GFR(CKD) 78 (>60 ml/min/1.73 sqM); Potassium 4.7 mmol/L (3.5-5.1); Sodium 139 mmol/L (137-145); Total Bilirubin 0.5 mg/dL (0.2-1.3); Total Protein 6.9 g/dL (6.3-8.2)
[2023-10-26 17:19] LABS: HCT 38.9 % (39.0-53.0); HGB 12.8 gm/dL (13.0-17.5); MCH 34.2 pg (25.0-35.0); MCHC 32.9 g/dL (31.0-37.0); MCV 104.1 fL (80.0-100.0); Macrocytosis Slight; Mean Platelet Volume 7.9; Platelet Count 189 k/uL (150-450); RBC 3.74 m/uL (4.30-5.90); RDW 13.1 % (11.5-15.5); WBC 6.2 k/uL (3.8-10.6)
[2023-10-26 17:22] LABS: Partial Thromboplastin Time 23.2 sec (22.0-30.0); Prothrombin Time 10.5 sec (10.0-12.5)
--- NOTE | 2023-10-26 17:26 | XR ---
EXAMINATION TYPE: XR chest 1V portable DATE OF EXAM: 10/26/2023 5:12 PM CLINICAL INDICATION:Male, 73 years old with history of infection; COMPARISON: Chest radiographs from 10/05/2023. TECHNIQUE: XR chest 1V portable Frontal view of the chest. FINDINGS: Lungs/Pleura: There is flattening of the diaphragm with increased lucency of the lungs. No evidence o f pneumothorax, pleural effusion or focal consolidation. Pulmonary vascularity: Unremarkable. Heart/mediastinum: Cardiomediastinal silhouette is enlarged and stable. Atherosclerotic calcificatio ns are seen in the aorta. Three lead cardiac conduction device overlying the left hemithorax with paige d tips projecting over the right ventricle, right atrium and coronary sinus. Musculoskeletal: No acute osseous pathology. IMPRESSION: 1. Cardiomegaly and mild pulmonary vascular congestion. Correlate with BNP for congestive heart fail ure. 2. COPD changes.
[2023-10-26 18:00] LABS: Eosinophils # (M) 0.31 k/uL (0-0.7); Lymphocytes # (M) 1.92 k/uL (1.0-4.8); Monocytes # (M) 0.25 k/uL (0-1.0); Neutrophils # (M) 3.72 k/uL (1.3-7.7); Neutrophils % (M) 60 %; Nucleated Red Blood Cells 0 /100 WBC (0-0); Total Cells Counted 100
[2023-10-26] MEDS: PIPERACILLIN-TAZOBACTAM 3.375 GM in SODIUM CHLORIDE 0.9% 100 ML IVPB SCH (18:19)
--- NOTE | 2023-10-26 18:22 | P.HPCAR ---
History of Present Illness This is Dr. Orozco dictating an H/P on this patient The patient was interviewed and examined IMPRESSION / ASSESSMENT: Wound dehiscence Status post upgrade to a biventricular ICD in left bundle pacing Known ischemic cardio myopathy History of VF arrest PLAN: Wound debridement tomorrow, pocket debridement tomorrow IV antibiotics including vancomycin and Zosyn tonight Resume medications Hold Plavix IV Lasix tomorrow 1 dose after receiving vancomycin and Zosyn HPI Patient presented with oozing of the lateral aspect of the incision/ wound No fever chills Dressing was removed there was an ulcerated area on the lateral aspect with drainage of dark blood ROS: No fever chills or rigors, no cough, phlegm or expectoration, no nausea, vomiting or diarrhea, no hematuria, dysuria, no musculoskeletal complaints, no strokes or seizures, no skin lesions. EXAMINATION: Lateral aspect of the incision is opened with oozing of dark red blood Blood pressure 123/63 Afebrile pulse rate 70 beats minute No orthopnea PND Normal heart sounds Left bundle pacing on telemetry REVIEW OF LABS, ECG & MEDICAL DATA Normal white count normal hemoglobin normal electrolytes Blood cultures drawn Physical Exam Vitals: Vital Signs Temp Pulse Resp BP Pulse Ox 10/26/23 18:21 61 18 141/52 10/26/23 16:26 98.0 F 69 18 123/63 95 Intake and Output 10/26/23 10/26/23 10/26/23 06:59 14:59 22:59 Other: Weight 96.162 kg Past Medical History Past Medical History: Coronary Artery Disease (CAD), Cancer, Chest Pain / Angina, Heart Failure, COPD, Hyperlipidemia, Myocardial Infarction (non Q-wave), Prostate Disorder, Sleep Apnea/CPAP/BIPAP Additional Past Medical History / Comment(s): See Ernesto's H&P,PAST CARDIAC ARREST X3. HAS DUAL AICD. HX SKIN BASAL CELL CA ON BACK. HAS HX KIDNEY STONES. BPH. Last Myocardial Infarction Date:: 2010 History of Any Multi-Drug Resistant Organisms: None Reported Past Surgical History: AICD, Coronary Bypass/CABG, Heart Catheterization With S tent, Hernia Repair, Orthopedic Surgery, Pacemaker Additional Past Surgical History / Comment(s): LT Hip Surgery, 1969. LT INGUINAL HERNIA. LT ARM SX, HAS METAL PALLAVI INSIDE D/T VEIN HARVESTING. LT ELBOW SX(BURSA). STENTS X3, LAST 2006. QUAD CABG 2004. DUAL AICD 2008, & REWIRED [address] - [facility]. TRAUMATIC AMP RT MIDDLE FINGERTIP,peripheral rt leg arterial stent Past Anesthesia/Blood Transfusion Reactions: No Reported Reaction Additional Past Anesthesia/Blood Transfusion Reaction / Comment(s): no hx of problems with prior blood transfusions Date of Last Stent Placement:: 2006 Type of Cardiac Device: Permanent Pacemaker, AICD Device Placement Date:: 2009 Past Psychological History: No Psychological Hx Reported Smoking Status: Former smoker Past Alcohol Use History: None Reported Past Drug Use History: None Reported - Past Family History Father Family Medical History: Myocardial Infarction ([place]) Additional Family Medical History / Comment(s): DAD AT AGE 72- [place] Mother Family Medical History: No Reported History Additional Family Medical History / Comment(s): MOM at age 93 Physical Examination Vital Signs Temp Pulse Resp BP Pulse Ox 10/26/23 18:21 61 18 141/52 10/26/23 16:26 98.0 F 69 18 123/63 95 Intake and Output 10/26/23 10/26/23 10/26/23 06:59 14:59 22:59 Other: Weight 96.162 kg Results 10/26/23 16:49 10/26/23 16:49 Cardiac Enzymes 10/26/23 Range/Units 16:49 AST 35 (17-59) U/L Coagulation 10/26/23 Range/Units 16:49 PT 10.5 (10.0-12.5) sec APTT 23.2 (22.0-30.0) sec CBC 10/26/23 Range/Units 16:49 WBC 6.2 (3.8-10.6) k/uL RBC 3.74 L (4.30-5.90) m/uL Hgb 12.8 L (13.0-17.5) gm/dL Hct 38.9 L (39.0-53.0) % Plt Count 189 (150-450) k/uL Comprehensive Metabolic Panel 10/26/23 Range/Units 16:49 Sodium 139 (137-145) mmol/L Potassium 4.7 (3.5-5.1) mmol/L Chloride 100 (98-107) mmol/L Carbon Dioxide 28 (22-30) mmol/L BUN 18 (9-20) mg/dL Creatinine 0.97 (0.66-1.25) mg/dL Glucose 89 (74-99) mg/dL Calcium 9.1 (8.4-10.2) mg/dL AST 35 (17-59) U/L ALT 23 (4-49) U/L Alkaline Phosphatase 86 (38-126) U/L Total Protein 6.9 (6.3-8.2) g/dL Albumin 3.7 (3.5-5.0) g/dL Current Medications Generic Name Dose Route Start Last Admin Trade Name Freq PRN Reason Stop Dose Admin Atorvastatin Calcium 80 mg 10/27/23 09:00 Atorvastatin 80 Mg Tab PO DAILY [facility] Ezetimibe 10 mg 10/27/23 09:00 Ezetimibe 10 Mg Tab PO DAILY PATO Vancomycin HCl 1,500 mg/ 500 mls @ 167 mls/hr 10/26/23 16:36 10/26/23 17:51 Sodium Chloride IVPB 10/26/23 19:35 167 mls/hr ONCE STA Administration Piperacillin Sod/Tazobactam 100 mls @ 25 mls/hr 10/26/23 17:00 10/26/23 18:19 Sod 3.375 gm/ Sodium Chloride IVPB 25 mls/hr Q8HR PATO Administration Protocol Vancomycin HCl 1,500 mg/ 500 mls @ 167 mls/hr 10/27/23 06:00 Sodium Chloride IVPB Q16H PATO Cefazolin Sodium 1 gm/ Sodium 250 mls @ 250 mls/hr 10/27/23 07:00 Chloride IRRIGATION 10/27/23 23:00 ONCE PRN PRE-OP Magnesium Oxide 400 mg 10/27/23 09:00 Magnesium Oxide 400 Mg Tab PO DAILY [facility] Metoprolol Succinate 50 mg 10/26/23 21:00 Metoprolol Succinate (Er) 50 Mg Tab.Er.24h PO BID [facility] Montelukast Sodium 10 mg 10/26/23 21:00 Montelukast 10 Mg Tab PO HS [facility] Naloxone HCl 0.2 mg 10/26/23 16:59 Naloxone 0.4 Mg/Ml 1 Ml Vial IV Q2M PRN Opioid Reversal Sacubitril/Valsartan 1 each 10/26/23 21:00 Sacubitril/Valsartan 24 Mg-26 Mg Tablet PO BID [facility] Intake and Output 10/26/23 10/26/23 10/26/23 06:59 14:59 22:59 Other: Weight 96.162 kg Patient Weight 10/27/23 06:59 Weight 96.162 kg 10/26/23 16:49 10/26/23 16:49
[2023-10-26 18:25] LABS: Glucose,Whole Blood 93 mg/dL (70-110)
[2023-10-26] MEDS ORDERED: NON FORMULARY DRUG (Omalizumab 150 MG Vial) SQ SCH (18:30)
[2023-10-26] MEDS: MONTELUKAST 10 MG TAB PO SCH (20:56)
[2023-10-26] MEDS: METOPROLOL SUCCINATE (ER) 50 MG TAB.ER.24H PO SCH (20:57)
[2023-10-26] MEDS: SACUBITRIL/VALSARTAN 24 MG-26 MG TABLET PO SCH (20:57)
[2023-10-26] MEDS: traMADol 50 MG TAB PO SCH (21:01)
[2023-10-27] MEDS: PIPERACILLIN-TAZOBACTAM 3.375 GM in SODIUM CHLORIDE 0.9% 100 ML IVPB SCH ×3 (01:58→16:53)
[2023-10-27] MEDS: VANCOMYCIN 1,500 MG in SODIUM CHLORIDE 0.9% 500 ML 500 ML IVPB SCH ×2 (05:12→21:37)
[2023-10-27] MEDS ORDERED: ceFAZolin 1 GM in SODIUM CHLORIDE 0.9% IRRIG BTL 250 ML IRRIGATION PRN (07:00)
[2023-10-27] MEDS: SACUBITRIL/VALSARTAN 24 MG-26 MG TABLET PO SCH ×2 (07:03→20:01)
[2023-10-27] MEDS: FUROSEMIDE 10 MG/ML 4 ML VIAL IV SCH (08:05)
[2023-10-27] MEDS ORDERED: PIPERACILLIN-TAZOBACTAM 3.375 GM in SODIUM CHLORIDE 0.9% 100 ML IVPB SCH (08:15)
[2023-10-27] MEDS: BUDESONIDE 0.5 MG/2 ML NEBU INHALATION SCH ×2 (08:30→21:13)
[2023-10-27] MEDS: IPRATROPIUM-ALBUTEROL 3 ML NEB INHALATION SCH ×3 (08:30→21:13)
[2023-10-27 09:31] LABS: Basophils # (A) 0.1 k/uL (0-0.2); Basophils % (A) 1 %; Eosinophils # (A) 0.2 k/uL (0-0.7); Eosinophils % (A) 3 %; HCT 44.6 % (39.0-53.0); HGB 13.9 gm/dL (13.0-17.5); Hypochromasia Moderate; Lymphocytes # (A) 2.4 k/uL (1.0-4.8); Lymphocytes % (A) 24 %; MCH 33.4 pg (25.0-35.0); MCHC 31.2 g/dL (31.0-37.0); Macrocytosis Moderate; Mean Platelet Volume 8.1; Monocytes # (A) 0.7 k/uL (0-1.0); Monocytes % (A) 7 %; Neutrophils # (A) 6.1 k/uL (1.3-7.7); Neutrophils % (A) 62 %; Platelet Count 231 k/uL (150-450); RBC 4.17 m/uL (4.30-5.90); RDW 13.1 % (11.5-15.5); WBC 9.9 k/uL (3.8-10.6)
[2023-10-27 09:53] LABS: ALT 26 U/L (4-49); AST 37 U/L (17-59); African American GFR (CKD) 78 (>60 ml/min/1.73 sqM); Albumin 4.2 g/dL (3.5-5.0); Alkaline Phosphatase 108 U/L (38-126); Anion Gap 12 mmol/L; Blood Urea Nitrogen 15 mg/dL (9-20); Calcium 9.3 mg/dL (8.4-10.2); Carbon Dioxide 30 mmol/L (22-30); Chloride 102 mmol/L (98-107); Glucose 89 mg/dL (74-99); Non-African American GFR(CKD) 68 (>60 ml/min/1.73 sqM); Potassium 4.2 mmol/L (3.5-5.1); Sodium 144 mmol/L (137-145); Total Bilirubin 0.9 mg/dL (0.2-1.3); Total Protein 7.6 g/dL (6.3-8.2)
[2023-10-27] MEDS ORDERED: SUCCINYLCHOLINE CHLORIDE 200 MG/10 ML VIAL IV ONE (11:13)
[2023-10-27] MEDS ORDERED: LIDOCAINE 1% INJ 10MG/ML (20 ML MDV) ONE ×2 (11:13→11:29)
[2023-10-27] MEDS ORDERED: NEOSTIGMINE 1 MG/ML 10 ML VIAL ONE (11:13)
[2023-10-27] MEDS ORDERED: MIDAZOLAM 2 MG/2 ML VIAL ONE (11:13)
[2023-10-27] MEDS ORDERED: PHENYLEPHRINE 10 MG/ML VIAL ONE (11:13)
[2023-10-27] MEDS ORDERED: ePHEDrine 50 MG/ML 1 ML VIAL ONE (11:13)
[2023-10-27] MEDS ORDERED: PROPOFOL 10 MG/ML 20 ML VIAL IV ONE (11:13)
[2023-10-27] MEDS ORDERED: fentaNYL (PF) 50 MCG/ML 2 ML AMP ONE (11:13)
[2023-10-27] MEDS ORDERED: ROCURONIUM 10 MG/ML (5 ML VIAL) IV ONE (11:13)
[2023-10-27] MEDS ORDERED: GLYCOPYRROLATE 0.2 MG/ML 2 ML VIAL ONE (11:13)
[2023-10-27] MEDS ORDERED: IV FLUID CONTINUATION 1,000 ML IV ONE ×2 (11:15)
[2023-10-27] MEDS ORDERED: LIDOCAINE 1% INJ 10MG/ML (20 ML MDV) SQ ONE (12:17)
[2023-10-27] MEDS ORDERED: ceFAZolin 1,000 MG in SODIUM CHLORIDE 0.9% IRRIG BTL 250 ML IRRIGATION ONE (12:31)
[2023-10-27] MEDS ORDERED: VANCOMYCIN 1,000 MG in SODIUM CHLORIDE 0.9% IRRIGATIO 1,000 ML IRRIGATION ONE (12:45)
--- NOTE | 2023-10-27 15:35 | P.EPPROC ---
- EP Procedure Note Electrophysiology Procedure Note: Diagnosis Wound dehiscence of the biventricular ICD incision on account of scar tissue related to previous incisions infraclavicularly as well as size of chronic biventricular ICD generator Final diagnosis Biventricular ICD generator change on account of the large size of the [employer] Barrett biventricular ICD, which was causing pressure and tension from the incision, resulting in wound dehiscence Smaller size Medtronic bi-ventricle ICD implanted Successful relocation of the biventricular ICD generator, new subfascial pocket made at least 4-5 inches caudal to avoid tension and intermittent pressure on the incision Debridement of the incision and pocket, no infection no pus Successful primary closure of the pocket 2 antibiotic pouches placed in the pocket Details Procedure performed under general anesthesia. The patient was prepped and draped similar to a subcutaneous ICD implant IV antibiotics were administered Neck incision was opened, the wound edges were freshened to healthy bleeding tissue The pocket was washed with antibiotic solution currently A new subfascial pocket was made 4-5 cm cortical to the original pocket, via the original pocket to allow for a very caudal position of the new generator The old [employer] Barrett biventricular ICD generator was explanted. This was a large long generator causing internal pressure on the incision resulting in case since Patient has also had 2 prior to seizures for generator change his and his scar tissue in the infraclavicular region A new Medtronic generator for smaller size, biventricular ICD was implanted very caudal as compared to the previous location This allowed for the reduced pressure just underneath the incision and hopefully will prevent wound a since 2 antibiotic TYREX pouches placed, one along with the new biventricular ICD generator and the other is previous subfascial pocket to reduce the risk of infection The wound was closed primarily Tension relieving sutures were applied Pressure dressing was applied This is a very long procedure involving careful debridement and freshening of the wound edges that were decreased, the closure of this wound took a very long time on account of the scar tissue from prior procedures A completely new subfascial pocket was made much smoke or daily in the device was implanted This procedure of changing the generator and closing the device to 3 hours under general anesthesia Plan Midline placement IV antibiotics with vancomycin and Zosyn to continue for about prolonged course of antibiotics thereafter Hold Plavix even though he has CAD and peripheral vascular disease, will restart probably Tuesday or Tuesday next week Weekly evaluation of the wound in the EP lab
--- NOTE | 2023-10-27 15:38 | P.PN ---
Progress Note - Text Patient underwent wound debridement and change of palatoplasty generator to a smaller size with relocation of the device He will receive IV antibiotics including vancomycin and Zosyn Daily IV Lasix 40 mg once daily to minimize risk of iatrogenic fluid overload We will hold Plavix for the next several days Aspirin is already been on hold He will restart his heart failure medications in the ENTRESTO that was held's morning prior to general anesthesia
[2023-10-27] MEDS: MULTIVITAMINS, THERA 1 EACH TAB PO SCH (16:22)
[2023-10-27] MEDS: MAGNESIUM OXIDE 400 MG TAB PO SCH (16:22)
[2023-10-27] MEDS: EZETIMIBE 10 MG TAB PO SCH (16:22)
[2023-10-27] MEDS: ATORVASTATIN 80 MG TAB PO SCH (16:22)
[2023-10-27] MEDS: METOPROLOL SUCCINATE (ER) 50 MG TAB.ER.24H PO SCH ×2 (16:22→20:01)
[2023-10-27] MEDS: traMADol 50 MG TAB PO SCH ×2 (16:23→20:01)
[2023-10-27] MEDS: TAMSULOSIN 0.4 MG CAP.ER.24H PO SCH (16:23)
[2023-10-27] MEDS ORDERED: ACETAMINOPHEN IV (For NPO) 1,000 MG in EMPTY BAG 1 BAG IVPB ONE (17:40)
[2023-10-27] MEDS: MONTELUKAST 10 MG TAB PO SCH (20:01)
[2023-10-28] MEDS: PIPERACILLIN-TAZOBACTAM 3.375 GM in SODIUM CHLORIDE 0.9% 100 ML IVPB SCH ×4 (01:07→23:56)
[2023-10-28] MEDS: HYDROcodone/APAP 5-325MG 1 EACH TAB PO PRN ×4 (02:54→20:28)
[2023-10-28] MEDS: FUROSEMIDE 10 MG/ML 4 ML VIAL IV SCH ×2 (06:10→07:13)
[2023-10-28] MEDS: IPRATROPIUM-ALBUTEROL 3 ML NEB INHALATION SCH ×3 (07:56→22:01)
[2023-10-28] MEDS: BUDESONIDE 0.5 MG/2 ML NEBU INHALATION SCH ×2 (07:56→22:01)
[2023-10-28] MEDS: MULTIVITAMINS, THERA 1 EACH TAB PO SCH (08:53)
[2023-10-28] MEDS: TAMSULOSIN 0.4 MG CAP.ER.24H PO SCH (08:53)
[2023-10-28] MEDS: ATORVASTATIN 80 MG TAB PO SCH (08:53)
[2023-10-28] MEDS: EZETIMIBE 10 MG TAB PO SCH (08:53)
[2023-10-28] MEDS: METOPROLOL SUCCINATE (ER) 50 MG TAB.ER.24H PO SCH ×2 (08:53→20:28)
[2023-10-28] MEDS: MAGNESIUM OXIDE 400 MG TAB PO SCH (08:53)
[2023-10-28] MEDS: SACUBITRIL/VALSARTAN 24 MG-26 MG TABLET PO SCH ×2 (08:54→20:28)
[2023-10-28] MEDS: traMADol 50 MG TAB PO SCH ×2 (08:54→20:31)
--- NOTE | 2023-10-28 12:41 | P.PN ---
Progress Note - Text Patient is resting comfortably in a chair He denies any shortness of breath chest discomfort On examination his lungs are clear to auscultation without any crackles at the bases Heart sounds S1 and S2 normal Blood pressure is normal 120/72 mmHg pulse rate in the 80s afebrile Impression Severe ischemic adenopathy Recent upgrade to a biventricular ICD with a [employer] medical Bi V ICD which is fairly large in size Wound dehiscence that did not respond to drainage of the hematoma with primary closure Recurrence of dehiscence requiring debridement of the incision, the location of the pocket to the more caudal site Changes generator to a smaller size Metronic biventricular ICD to minimize pressure and tension and the wound Followed by primary closure Antibiotic mesh 2 Leist within the pocket Suggest Continue IV vancomycin and IV Zosyn in patient IV Lasix 40 mg daily in the morning to avoid iatrogenic fluid overload and extra doses of when necessary basis if needed Chest x-ray tomorrow Labs tomorrow A midline was placed yesterday for home IV therapy I will keep the patient here at least Tuesday for IV vancomycin and Zosyn therapy Possible IV ceftriaxone for home therapy
[2023-10-28] MEDS ORDERED: VANCOMYCIN TROUGH DUE 1 EACH MISC MISCELLANE ONE (13:00)
[2023-10-28 13:28] LABS: African American GFR (CKD) 59 (>60 ml/min/1.73 sqM); Non-African American GFR(CKD) 51 (>60 ml/min/1.73 sqM)
[2023-10-28] MEDS: VANCOMYCIN 1,500 MG in SODIUM CHLORIDE 0.9% 250 ML IVPB SCH (15:06)
[2023-10-28] MEDS: MONTELUKAST 10 MG TAB PO SCH (20:28)
[2023-10-29] MEDS: VANCOMYCIN 1,500 MG in SODIUM CHLORIDE 0.9% 250 ML IVPB SCH ×2 (06:22→20:46)
[2023-10-29] MEDS: FUROSEMIDE 10 MG/ML 4 ML VIAL IV SCH (06:22)
[2023-10-29 08:36] LABS: African American GFR (CKD) 77 (>60 ml/min/1.73 sqM); Anion Gap 11 mmol/L; Blood Urea Nitrogen 15 mg/dL (9-20); Calcium 8.7 mg/dL (8.4-10.2); Carbon Dioxide 29 mmol/L (22-30); Chloride 101 mmol/L (98-107); Glucose 129 mg/dL (74-99); Non-African American GFR(CKD) 66 (>60 ml/min/1.73 sqM); Potassium 3.6 mmol/L (3.5-5.1); Sodium 141 mmol/L (137-145)
[2023-10-29] MEDS: IPRATROPIUM-ALBUTEROL 3 ML NEB INHALATION SCH ×3 (08:46→21:23)
[2023-10-29] MEDS: BUDESONIDE 0.5 MG/2 ML NEBU INHALATION SCH ×2 (08:46→21:23)
[2023-10-29] MEDS: METOPROLOL SUCCINATE (ER) 50 MG TAB.ER.24H PO SCH ×2 (08:53→20:46)
[2023-10-29] MEDS: EZETIMIBE 10 MG TAB PO SCH (08:53)
[2023-10-29] MEDS: MAGNESIUM OXIDE 400 MG TAB PO SCH (08:53)
[2023-10-29] MEDS: MULTIVITAMINS, THERA 1 EACH TAB PO SCH (08:53)
[2023-10-29] MEDS: ATORVASTATIN 80 MG TAB PO SCH (08:53)
[2023-10-29] MEDS: TAMSULOSIN 0.4 MG CAP.ER.24H PO SCH (08:53)
[2023-10-29] MEDS: SACUBITRIL/VALSARTAN 24 MG-26 MG TABLET PO SCH ×2 (08:54→20:46)
[2023-10-29] MEDS: PIPERACILLIN-TAZOBACTAM 3.375 GM in SODIUM CHLORIDE 0.9% 100 ML IVPB SCH ×2 (08:54→15:47)
[2023-10-29] MEDS: HYDROcodone/APAP 5-325MG 1 EACH TAB PO PRN ×2 (08:58→18:34)
--- NOTE | 2023-10-29 09:00 | XR ---
EXAMINATION TYPE: XR chest 2V DATE OF EXAM: 10/29/2023 COMPARISON: 10/26/2023 HISTORY: 73-year-old male for overload, shortness of breath TECHNIQUE: PA and lateral views FINDINGS: Left anterior chest wall AICD generator with right atrial, right ventricular, and coronary sinus lead s. Median sternotomy wires and post-CABG clips. Heart remains borderline enlarged. Hyperinflation. No consolidation or pleural effusion seen. IMPRESSION: Borderline cardiomegaly and COPD. No definite acute process.
[2023-10-29] MEDS: traMADol 50 MG TAB PO SCH ×2 (09:11→20:37)
[2023-10-29] MEDS: SPIRONOLACTONE 25 MG TAB PO SCH (11:25)
--- NOTE | 2023-10-29 13:34 | P.PN ---
Subjective Progress Note Date: 10/29/23 This is Cheikh Amor NP, I'm dictating on behalf of Dr. Orozco's H&P and A&P. Patient was interviewed and examined. Patient is a pleasant 73-year-old male who was brought to the hospital secondary to wound dehiscence after placement of a large [employer] biventricular pacemaker generator, which was not allowing the patient's incision to close completely. This was recently changed 2 days ago to a smaller Medtronic biventricular ICD generator, and the pocket was enlarged to move the generator further down the chest to avoid the possibly contaminated previous pocket. This morning the patient's dressing was taken down, and the primary dressing over the incision site appears clean, dry, and intact. The new generator is palpated under the left chest just medial to the left areola, and appears stable and in place. Patient overall reports that he's feeling okay today. He has minimal to no pain. GENERAL: Well-appearing, well-nourished and in no acute distress. NECK: Supple without JVD or thyromegaly. LUNGS: Breath sounds clear to auscultation bilaterally. Respiration equal and unlabored. No wheezes, rales or rhonchi. HEART: Regular rate and rhythm without murmurs, rubs or gallops. S1 and S2 heard. EXTREMITIES: Normal range of motion, no edema. No clubbing or cyanosis. Peripheral pulses intact and strong. VITALS: Temp 97.5, pulse 80, respirations 18, blood pressure 121/54, O2 saturation 93% on room air TELEMETRY: Paced rhythm LABS: Sodium 141, potassium 3.6, B1 15, creatinine 1.10, calcium 8.7 IMPRESSION: 1. Severe ischemic cardiomyopathy 2. Status post [employer] biventricular ICD generator removal with replacement with smaller size Medtronic biventricular ICD generator to allow incisional closure. 3. Status post wound dehiscence secondary to large size biventricular ICD generator, with possible infection. PLAN: Start spironolactone 12.5 mg daily. New biventricular ICD generator was placed in a pocket lower down in the chest. This pocket appears intact. Continue IV Lasix. Continue vancomycin and Zosyn. Consult infectious disease for recommendations. Patient had no culture secondary to one week of antibiotics prior to dehiscence. There was potential contamination of the pocket, and we are looking for the broadest coverage that we can give as an outpatient. Patient does have a midline that has been placed. We are currently considering ceftriaxone and doxycycline. Further recommendations based on patient's clinical course. Objective - Vital Signs Vital signs: Vital Signs Temp 97.5 F L 10/29/23 08:55 Pulse 76 10/29/23 12:35 Resp 18 10/29/23 11:25 BP 121/54 10/29/23 11:25 Pulse Ox 93 L 10/29/23 11:25 FiO2 Intake & Output 10/28/23 10/29/23 10/29/23 18:59 06:59 18:59 Intake Total 420 240 Output Total 200 Balance 420 40 Weight 94.7 kg Intake: Oral 420 240 Output: Urine 200 Other: Voiding Method Urinal Urinal Urinal # Voids 1 1 - Labs CBC & Chem 7: 10/27/23 08:23 10/29/23 07:35 Labs: Abnormal Lab Results - Last 24 Hours (Table) 10/28/23 10/29/23 Range/Units 12:53 07:35 Creatinine 1.37 H (0.66-1.25) mg/dL Glucose 129 H (74-99) mg/dL Microbiology - Last 24 Hours (Table) 10/26/23 18:34 Blood Culture - Preliminary Blood
[2023-10-29] MEDS: MONTELUKAST 10 MG TAB PO SCH (20:46)
--- NOTE | 2023-10-29 22:57 | P.CONS ---
History of Present Illness - Reason for Consult Consult date: 10/29/23 Home antibiotics therapy for broad coverage Requesting physician: Cheikh Amor - Chief Complaint Bleeding from the pacemaker site x few days - History of Present Illness Patient is a 73-year-old male with a past medical history significant for chronic congestive heart failure severe ischemic cardiomyopathy with a EF of 20% coronary artery disease s/p coronary bypass grafting and history of V-fib arrest requiring ICD implantation in the past patient recently did have upgrade to biventricular ICD on October 04, 2023 patient subsequently developing hematoma at the surgical site that was evacuated on 10/19/2023 and did have closure of the wound with sutures received IV antibiotics on right and the patient was discharged on 10/20/2023 did not receive any antibiotic on discharge patient subsequently was evaluated and [facility] ER on October 23 with the patient did have some bleeding from his ICD site that was controlled in the ER with daily bandage patient subsequently did have a follow-up with his clinical nurse educator on 10/26/2023 and apparently the patient did have dehiscence of his wound patient was sent back to the ER for admission and IV antibiotic therapy patient on presentation to the hospital was afebrile and no fever has been recorded subsequently patient did have a normal white count of 6.2 creatinine has been 1.10 liver exams has been normal patient did have blood cultures obtained on 1226 as well as 10/26/2023 and those has been negative no culture has been obtained from the wound bed patient was taken back to the OR and the patient did have removal of the previous biventricular ICD generator and did have a small sized Medtronic biventricular ICD and ventricular ICD implanted patient operative report did not mention any evidence of purulence at the site of the previous AICD and no OR cultures patient has been treated with vancomycin and Zosyn since 10/26/2023 infectious disease was consulted today for further management of antibiotic therapy home antibiotic therapy for broad coverage, as mentioned earlier the patient did not have any fever during this hospital stay and did not mention having any fever at home patient denies having any pain in his AICD site, and the pressure dressing was discontinued by his laundry marker supervisor morning and a new dressing has been placed and currently he did not have any bleeding so far Review of Systems Positive point and negatives has been mentioned in the HPI, complete review of systems was performed and all other systems are negative Past Medical History Past Medical History: Coronary Artery Disease (CAD), Cancer, Chest Pain / Angina, Heart Failure, COPD, Hyperlipidemia, Myocardial Infarction (non Q-wave), Prostate Disorder, Sleep Apnea/CPAP/BIPAP Additional Past Medical History / Comment(s): See Ernesto's H&P,PAST CARDIAC ARREST X3. HAS DUAL AICD. HX SKIN BASAL CELL CA ON BACK. HAS HX KIDNEY STONES. BPH. Last Myocardial Infarction Date:: 2010 History of Any Multi-Drug Resistant Organisms: None Reported Past Surgical History: AICD, Coronary Bypass/CABG, Heart Catheterization With Stent, Hernia Repair, Orthopedic Surgery, Pacemaker Additional Past Surgical History / Comment(s): LT Hip Surgery, 1969. LT INGUINAL HERNIA. LT ARM SX, HAS METAL PALLAVI INSIDE D/T VEIN HARVESTING. LT ELBOW SX(BURSA). STENTS X3, LAST 2006. QUAD CABG 2004. DUAL AICD 2008, & REWIRED [address] - [facility]. TRAUMATIC AMP RT MIDDLE FINGERTIP,peripheral rt leg arterial stent Past Anesthesia/Blood Transfusion Reactions: No Reported Reaction Additional Past Anesthesia/Blood Transfusion Reaction / Comm: no hx of problems with prior blood transfusions Date of Last Stent Placement:: 2006 Type of Cardiac Device: Permanent Pacemaker, AICD Device Placement Date:: 2009 Past Psychological History: No Psychological Hx Reported Smoking Status: Former smoker Past Alcohol Use History: None Reported Additional Past Alcohol Use History / Comment(s): STARTED SMOKING AT AGE 18, SMOKED 1 PPD QUIT 1986 Past Drug Use History: None Reported - Past Family History Father Family Medical History: Myocardial Infarction ([place]) Additional Family Medical History / Comment(s): DAD AT AGE 72- [place] Mother Family Medical History: No Reported History Additional Family Medical History / Comment(s): MOM at age 93 Medications and Allergies Home Medications Medication Instructions Recorded Confirmed Type Ipratropium-Albuterol Nebulize 3 ml INHALATION RT-TID 07/10/14 10/26/23 History [Duoneb 0.5 mg-3 mg/3 ml Soln] Nitroglycerin Sl Tabs [Nitrostat] 0.4 mg SL Q5M PRN 07/10/14 10/26/23 History Omalizumab [Xolair] 300 mg SQ Q28D 07/10/14 10/26/23 History Tamsulosin HCl 0.4 mg PO DAILY 07/10/14 10/26/23 History traMADol HCl [Ultram] 50 mg PO BID 07/10/14 10/26/23 History Budesonide [Pulmicort] 0.5 mg INHALATION RT-BID 06/16/16 10/26/23 History Zafirlukast [Accolate] 20 mg PO BID 06/16/16 10/26/23 History Clopidogrel [Plavix] 75 mg PO DAILY 10/10/20 10/26/23 History Magnesium Oxide 400 mg PO DAILY 10/10/20 10/26/23 History Metoprolol Succinate [Toprol XL] 50 mg PO BID 10/10/20 10/26/23 History Multivitamins, Thera [Multivitamin 1 tab PO DAILY 02/06/21 10/26/23 History (formulary)] Atorvastatin Calcium [Lipitor] 80 mg PO DAILY 03/20/21 10/26/23 History Sacubitril/Valsartan [Entresto 24 1 tab PO BID 05/12/21 10/26/23 History mg-26 mg Tablet] Evolocumab [Repatha Syringe] 140 mg SQ [id number] 09/30/23 10/26/23 History Ezetimibe [Zetia] 10 mg PO DAILY 09/30/23 10/26/23 History Spironolactone 12.5 mg PO DAILY #90 tablet 10/19/23 10/26/23 Rx Furosemide [Lasix] 40 mg PO DAILY #90 tablet 10/31/23 Rx Allergies Allergy/AdvReac Type Severity Reaction Status Date / Time No Known Allergies Allergy Verified 10/26/23 16:27 Physical Exam Vitals: Vital Signs Temp Pulse Pulse Resp BP Pulse Ox 10/29/23 15:45 69 17 104/54 95 10/29/23 12:35 76 10/29/23 12:25 80 10/29/23 11:25 66 18 121/54 93 L 10/29/23 09:05 80 10/29/23 08:55 97.5 F L 74 18 105/54 100 10/29/23 08:46 86 10/29/23 04:00 97.5 F L 68 17 106/53 93 L 10/29/23 00:00 98.1 F 72 17 107/54 93 L 10/28/23 22:18 84 10/28/23 22:01 80 Intake and Output 10/29/23 10/29/23 10/29/23 06:59 14:59 22:59 Output Total 200 Balance -200 Output: Urine 200 Other: Voiding Method Urinal Urinal # Voids 1 1 Weight 94.7 kg GENERAL DESCRIPTION: Middle-aged male lying in bed, no distress. No tachypnea or accessory muscle of respiration use. HEENT: Shows Pallor , no scleral icterus. Oral mucous membrane is dry. NECK: Trachea central, no thyromegaly. LUNGS: Unlabored breathing. Clear to auscultation anteriorly. No wheeze or crackle. HEART: S1, S2, regular rate and rhythm. Left chest wall pacemaker site is currently dressed no drainage on the dressing ABDOMEN: Soft, no tenderness , guarding or rigidity, no organomegaly EXTREMITIES: No edema of feet. SKIN: No rash, no masses palpable. NEUROLOGICAL: The patient is awake, alert, oriented x3, mood and affect normal. Results CBC & Chem 7: 10/30/23 09:19 10/31/23 07:41 Labs: Abnormal Lab Results - Last 24 Hours (Table) 10/29/23 Range/Units 07:35 Glucose 129 H (74-99) mg/dL Microbiology - Last 24 Hours (Table) 10/26/23 18:34 Blood Culture - Preliminary Blood Assessment and Plan (1) Wound dehiscence Status: Acute Code(s): T81.30XA - DISRUPTION OF WOUND, UNSPECIFIED, INITIAL ENCOUNTER SNOMED Code(s): 633001474 Plan: 1patient seem to have a problem with bleeding at his ICD site that was initi ally switched to biventricular ICD on October 04, 2023 subsequent did have a did have a hematoma that was decorticated on 10/19/2023 and subsequently did have removal of the larger biventricular ICD and placement of a small left Medtronic ICD on 10/27/2022, patient did not have any fever no documentation of any purulence at the time of surgery for debridement and no cultures has been done clinically doubt infection as well as possible for this wound dehiscence and nonhealing 2-patient is currently on vancomycin and Zosyn with high risk of nephrotoxicity with this combination 3-for now we will switch antibiotics to vancomycin and cefepime we will repeat his blood culture and check inflammatory markers and discuss further with the cardiology team tomorrow my clinical suspicions remains to be low for infectious etiology responsible for this episodes of hematomas, however keeping in mind her recurrent episodes prophylaxis with doxycycline oral on discharge may be worthwhile We will follow on clinical condition and cultures to further adjust medication if needed Thank you for this consultation we will follow the patient along with you Dictation was produced using [employer] dictation software. please excuse any grammatical, word or spelling errors. Time with Patient: Greater than 30
[2023-10-30] MEDS: CEFEPIME 2 GM in SODIUM CHLORIDE 0.9% 100 ML IVPB SCH ×3 (00:01→15:21)
[2023-10-30] MEDS: FUROSEMIDE 10 MG/ML 4 ML VIAL IV SCH (06:44)
[2023-10-30] MEDS: IPRATROPIUM-ALBUTEROL 3 ML NEB INHALATION SCH ×3 (08:32→21:09)
[2023-10-30] MEDS: BUDESONIDE 0.5 MG/2 ML NEBU INHALATION SCH ×2 (08:33→21:09)
[2023-10-30] MEDS: TAMSULOSIN 0.4 MG CAP.ER.24H PO SCH (09:01)
[2023-10-30] MEDS: MAGNESIUM OXIDE 400 MG TAB PO SCH (09:01)
[2023-10-30] MEDS: METOPROLOL SUCCINATE (ER) 50 MG TAB.ER.24H PO SCH ×2 (09:01→21:24)
[2023-10-30] MEDS: SPIRONOLACTONE 25 MG TAB PO SCH (09:01)
[2023-10-30] MEDS: ATORVASTATIN 80 MG TAB PO SCH (09:01)
[2023-10-30] MEDS: MULTIVITAMINS, THERA 1 EACH TAB PO SCH (09:01)
[2023-10-30] MEDS: EZETIMIBE 10 MG TAB PO SCH (09:01)
[2023-10-30] MEDS: HYDROcodone/APAP 5-325MG 1 EACH TAB PO PRN ×2 (09:02→21:24)
[2023-10-30] MEDS: SACUBITRIL/VALSARTAN 24 MG-26 MG TABLET PO SCH ×2 (09:02→21:24)
[2023-10-30] MEDS: traMADol 50 MG TAB PO SCH ×2 (09:50→21:25)
[2023-10-30 10:07] LABS: HCT 38.9 % (39.0-53.0); HGB 12.7 gm/dL (13.0-17.5); Hypochromasia Slight; MCH 34.7 pg (25.0-35.0); MCHC 32.5 g/dL (31.0-37.0); MCV 106.7 fL (80.0-100.0); Macrocytosis Moderate; Mean Platelet Volume 8.1; Platelet Count 171 k/uL (150-450); RBC 3.65 m/uL (4.30-5.90); RDW 13.5 % (11.5-15.5); WBC 8.1 k/uL (3.8-10.6)
[2023-10-30 11:16] LABS: Basophils # (M) 0.16 k/uL (0-0.2); Eosinophils # (M) 0.41 k/uL (0-0.7); Monocytes # (M) 0.32 k/uL (0-1.0); Neutrophils # (M) 5.67 k/uL (1.3-7.7); Neutrophils % (M) 70 %; Nucleated Red Blood Cells 0 /100 WBC (0-0); Total Cells Counted 200
[2023-10-30 11:23] LABS: ALT 26 U/L (4-49); AST 55 U/L (17-59); African American GFR (CKD) >90 (>60 ml/min/1.73 sqM); Albumin 3.8 g/dL (3.5-5.0); Alkaline Phosphatase 75 U/L (38-126); Anion Gap 9 mmol/L; Blood Urea Nitrogen 13 mg/dL (9-20); C Reactive Protein 2.4 mg/dL (<1.0); Calcium 9.1 mg/dL (8.4-10.2); Carbon Dioxide 28 mmol/L (22-30); Chloride 103 mmol/L (98-107); Glucose 112 mg/dL (74-99); Non-African American GFR(CKD) 83 (>60 ml/min/1.73 sqM); Potassium 4.3 mmol/L (3.5-5.1); Sodium 140 mmol/L (137-145); Total Bilirubin 0.8 mg/dL (0.2-1.3); Total Protein 7.1 g/dL (6.3-8.2)
--- NOTE | 2023-10-30 13:45 | P.PN ---
Subjective Progress Note Date: 10/30/23 The patient is a 73-year-old male who is currently admitted to the hospital after undergoing ICD generator change. The patient had a generator change several weeks back but developed a significant hematoma. Ultimately his wound dehisced and he underwent pocket revision with Dr. Orozco on 10/27/2023. He remains admitted for IV antibiotics for contaminated pocket. The patient states his been feeling well. He's been up ambulating around the unit and has no current complaints. He is eager to be discharged. GENERAL: Well-appearing, well-nourished and in no acute distress. NECK: Supple without JVD or thyromegaly. LUNGS: Breath sounds clear to auscultation bilaterally. Respiration equal and unlabored. No wheezes, rales or rhonchi. HEART: Regular rate and rhythm without murmurs, rubs or gallops. S1 and S2 heard. Device dressing in place. No shadowing EXTREMITIES: Normal range of motion, no edema. No clubbing or cyanosis. Peripheral pulses intact and strong. TELEMETRY: Paced rhythm IMPRESSION: Severe ischemic cardiomyopathy Status post [facility] biventricular ICD generator change Status post wound dehiscence secondary to hematoma PLAN: Continue IV antibiotics as recommended by infectious disease Patient has a contaminated device pocket and therefore will need long-term antibiotics Consider discharge in the next 24-48 hours I am dictating on behalf of Dr Ryan Orozco's history/physical and assessment/plan. Objective - Vital Signs Vital signs: Vital Signs Temp 97.9 F 10/30/23 08:55 Pulse 72 10/30/23 13:06 Resp 17 10/30/23 11:50 BP 105/54 10/30/23 11:50 Pulse Ox 96 10/30/23 11:50 FiO2 Intake & Output 10/29/23 10/30/23 10/30/23 18:59 06:59 18:59 Intake Total 1130 236 Balance 1130 236 Weight 94.9 kg Intake: Intake, IV Titration 350 Amount Cefepime 2 gm In Sodium 100 Chloride 0.9% 100 ml @ 25 mls/hr IVPB Q8HR [facility] Rx# :[id number] Vancomycin 1,500 mg In 250 Sodium Chloride 0.9% 250 ml @ 83.333 mls/hr IVPB Q16H [facility] Rx#:[id number] Oral 780 236 Other: Voiding Method Urinal Urinal Urinal # Voids 1 3 - Labs CBC & Chem 7: 10/30/23 09:19 10/30/23 09:19 Labs: Abnormal Lab Results - Last 24 Hours (Table) 10/30/23 10/30/23 Range/Units 09:19 09:19 RBC 3.65 L (4.30-5.90) m/uL Hgb 12.7 L (13.0-17.5) gm/dL Hct 38.9 L (39.0-53.0) % MCV 106.7 H (80.0-100.0) fL Glucose 112 H (74-99) mg/dL C-Reactive Protein 2.4 H (<1.0) mg/dL Microbiology - Last 24 Hours (Table) 10/26/23 18:34 Blood Culture - Preliminary Blood
[2023-10-30] MEDS: VANCOMYCIN 1,500 MG in SODIUM CHLORIDE 0.9% 250 ML IVPB SCH (15:21)
--- NOTE | 2023-10-30 16:55 | P.PN ---
Subjective Progress Note Date: 10/30/23 Principal diagnosis: Reason for follow-up is recurrent pacemaker wound dehiscence question of infection. Patient is a 73-year-old male with a past medical history significant for chronic congestive heart failure severe ischemic cardiomyopathy with a EF of 20% coronary artery disease s/p coronary bypass grafting and history of V-fib arrest requiring ICD implantation in the past patient recently did have upgrade to biventricular ICD on October 04, 2023 patient subsequently developing hematoma at the surgical site that was evacuated on 10/19/2023 and did have closure of the wound, with readmission to the hospital on 10/26/2023 with dehiscence of the wound the patient status post change of his pacemaker blood cultures obtained which has been negative ID consulted for home antibiotic therapy. On today's evaluation that is 10/30/2023, the patient remains to be afebrile patient is breathing comfortably on room air patient denies having any chest pain shortness of breath or cough no nausea vomiting abdominal pain and denies having any drainage from the left chest wall pacemaker site. Patient white count is 8.1 creatinine 0.91 CRP is 2.4 Objective - Vital Signs Vital signs: Vital Signs Temp 97.9 F 10/30/23 08:55 Pulse 72 10/30/23 13:06 Resp 17 10/30/23 11:50 BP 105/54 10/30/23 11:50 Pulse Ox 96 10/30/23 11:50 FiO2 Intake & Output 10/29/23 10/30/23 10/30/23 18:59 06:59 18:59 Intake Total 1130 476 Balance 1130 476 Weight 94.9 kg Intake: Intake, IV Titration 350 Amount Cefepime 2 gm In Sodium 100 Chloride 0.9% 100 ml @ 25 mls/hr IVPB Q8HR [facility] Rx# :[id number] Vancomycin 1,500 mg In 250 Sodium Chloride 0.9% 250 ml @ 83.333 mls/hr IVPB Q16H [facility] Rx#:[id number] Oral 780 476 Other: Voiding Method Urinal Urinal Urinal # Voids 1 3 - Exam GENERAL DESCRIPTION: An elderly male lying in bed in no distress RESPIRATORY SYSTEM: Unlabored breathing , decreased breath sounds at bases HEART: S1 S2 regular rate and rhythm , left chest wall pacemaker site is dressed no drainage on the dressing ABDOMEN: Soft , no tenderness EXTREMITIES: No edema feet - Labs CBC & Chem 7: 10/30/23 09:19 10/30/23 09:19 Labs: Abnormal Lab Results - Last 24 Hours (Table) 10/30/23 10/30/23 Range/Units 09:19 09:19 RBC 3.65 L (4.30-5.90) m/uL Hgb 12.7 L (13.0-17.5) gm/dL Hct 38.9 L (39.0-53.0) % MCV 106.7 H (80.0-100.0) fL Glucose 112 H (74-99) mg/dL C-Reactive Protein 2.4 H (<1.0) mg/dL Microbiology - Last 24 Hours (Table) 10/26/23 18:34 Blood Culture - Preliminary Blood Assessment and Plan (1) Pacemaker complications Current Visit: Yes Status: Acute Code(s): T82.9XXA - UNSP COMP OF CARDIAC AND VASCULAR PROSTH DEV/GRFT, INIT SNOMED Code(s): 392911537 (2) Wound dehiscence Current Visit: Yes Status: Acute Code(s): T81.30XA - DISRUPTION OF WOUND, UNSPECIFIED, INITIAL ENCOUNTER SNOMED Code(s): 310728559 Plan: 1patient seem to have a problem with bleeding at his ICD site that was ini tially switched to biventricular ICD on October 04, 2023 subsequent did have a did have a hematoma that was decorticated on 10/19/2023 and subsequently did have removal of the larger biventricular ICD and placement of a small left Medtronic ICD on 10/27/2022, patient did not have any fever no documentation of any purulence at the time of surgery for debridement and no cultures has been done clinically doubt infection as well as possible for this wound dehiscence and nonhealing 2patient is currently on vancomycin and cefepime culture has been negative so far we will consider short course of oral doxycycline on discharge and close outpatient follow-up Dictation was produced using [employer] dictation software. please excuse any grammatical, word or spelling errors. Time with Patient: Less than 30
[2023-10-30 17:29] VITALS: RESP 18
[2023-10-30] MEDS: MONTELUKAST 10 MG TAB PO SCH (21:24)
[2023-10-31] MEDS: CEFEPIME 2 GM in SODIUM CHLORIDE 0.9% 100 ML IVPB SCH ×2 (00:35→09:46)
[2023-10-31] MEDS: VANCOMYCIN 1,500 MG in SODIUM CHLORIDE 0.9% 250 ML IVPB SCH (06:14)
[2023-10-31] MEDS: FUROSEMIDE 10 MG/ML 4 ML VIAL IV SCH (06:14)
[2023-10-31] MEDS: BUDESONIDE 0.5 MG/2 ML NEBU INHALATION SCH (08:31)
[2023-10-31] MEDS: IPRATROPIUM-ALBUTEROL 3 ML NEB INHALATION SCH ×2 (08:31→15:54)
[2023-10-31] MEDS: MAGNESIUM OXIDE 400 MG TAB PO SCH (09:40)
[2023-10-31] MEDS: HYDROcodone/APAP 5-325MG 1 EACH TAB PO PRN (09:40)
[2023-10-31] MEDS: SACUBITRIL/VALSARTAN 24 MG-26 MG TABLET PO SCH (09:40)
[2023-10-31] MEDS: ATORVASTATIN 80 MG TAB PO SCH (09:41)
[2023-10-31] MEDS: METOPROLOL SUCCINATE (ER) 50 MG TAB.ER.24H PO SCH (09:41)
[2023-10-31] MEDS: TAMSULOSIN 0.4 MG CAP.ER.24H PO SCH (09:41)
[2023-10-31] MEDS: MULTIVITAMINS, THERA 1 EACH TAB PO SCH (09:41)
[2023-10-31] MEDS: SPIRONOLACTONE 25 MG TAB PO SCH (09:41)
[2023-10-31] MEDS: EZETIMIBE 10 MG TAB PO SCH (09:41)
[2023-10-31] MEDS: traMADol 50 MG TAB PO SCH (09:42)
[2023-10-31 09:49] LABS: African American GFR (CKD) 86 (>60 ml/min/1.73 sqM); Anion Gap 11 mmol/L; Blood Urea Nitrogen 10 mg/dL (9-20); Calcium 9.3 mg/dL (8.4-10.2); Carbon Dioxide 29 mmol/L (22-30); Chloride 102 mmol/L (98-107); Glucose 104 mg/dL (74-99); Non-African American GFR(CKD) 74 (>60 ml/min/1.73 sqM); Potassium 3.8 mmol/L (3.5-5.1); Sodium 142 mmol/L (137-145)
[2023-10-31 11:08] VITALS: TEMP 97.5
[2023-10-31 11:55] VITALS: BMI 32.1
[2023-10-31] MEDS ORDERED: ZINC OXIDE PASTE (Z-GUARD) 1 APPLIC TOPICAL PRN (12:48)
[2023-10-31] MEDS: NYSTATIN 100,000 UNIT/GM OINT 30 GM TUBE TOPICAL SCH ×2 (13:19→17:34)
[2023-10-31] MEDS ORDERED: ERTAPENEM 1 GM in SODIUM CHLORIDE 0.9% 50 ML IVPB SCH (15:00)
[2023-10-31] MEDS ORDERED: FUROSEMIDE 40 MG TAB PO STA (17:18)
[2023-10-31 18:19] VITALS: BP 123/63; PULSE 78
--- NOTE | 2023-10-31 18:25 | P.DS ---
Providers Date of admission: 10/26/23 17:01 Attending physician: Ryan Orozco Consults: 10/29/23 11:02 Consult Physician Routine Consulting Provider: Tien Hansen Consult Reason/Comments: Home abx therapy for broad coverage Do you want consulting provider notified?: Yes Primary care physician: [facility] Course: Patient is doing well. He does have mild lower extremity edema despite 40 mg IV of Lasix He has been on IV vancomycin and on Zosyn which adds considerably to his fluid intake However he denies any chest pain no shortness of breath no dizziness no lightheadedness He is ambulating around the room The IV line in the left arm is unsure any evidence for infection On examination Blood pressure 123/63 mmHg pulse rate in the 70s Heart sounds S1 and S2 are normal Breath sounds are clear The by the ICD site is healing well no hematoma No soakage Mild lower extremity edema Clear lungs to rhonchi no crackles Impression Severe cardio myopathy, recent upgrade to a biventricular ICD with LV pacing, Medtronic device Wound dehiscence Biventricular ICD generator change to reduce the size of the device Pocket debridement New subfascial pocket made caudal to the origin 1 so that the device would be away from the incision and would not add to the tensile forces disrupting the sutures/opening the wound Wound edges were freshened and then closed primarily Initially he was on IV antibiotics with vancomycin and Zosyn ID recommended daptomycin and ertapenem for home therapy He will continue his home medications for heart failure Antiplatelet therapy has been held He will start Plavix on November 04 He will start aspirin on November 12 Lasix 40 mg by mouth daily for at least 2-3 weeks Wound inspection this Patient Condition at Discharge: Serious Plan - Discharge Summary Discharge Rx Participant: No New Discharge Prescriptions: New Furosemide [Lasix] 40 mg PO DAILY #90 tablet No Action traMADol HCl [Ultram] 50 mg PO BID Tamsulosin HCl 0.4 mg PO DAILY Omalizumab [Xolair] 300 mg SQ Q28D Nitroglycerin Sl Tabs [Nitrostat] 0.4 mg SL Q5M PRN PRN Reason: Chest Pain Ipratropium-Albuterol Nebulize [Duoneb 0.5 mg-3 mg/3 ml Soln] 3 ml INHALATION RT-TID Zafirlukast [Accolate] 20 mg PO BID Budesonide [Pulmicort] 0.5 mg INHALATION RT-BID Clopidogrel [Plavix] 75 mg PO DAILY Magnesium Oxide 400 mg PO DAILY Metoprolol Succinate [Toprol XL] 50 mg PO BID Multivitamins, Thera [Multivitamin (formulary)] 1 tab PO DAILY Evolocumab [Repatha Syringe] 140 mg SQ [id number] Atorvastatin Calcium [Lipitor] 80 mg PO DAILY Sacubitril/Valsartan [Entresto 24 mg-26 mg Tablet] 1 tab PO BID Ezetimibe [Zetia] 10 mg PO DAILY Spironolactone 12.5 mg PO DAILY #90 tablet Discharge Medication List Ipratropium-Albuterol Nebulize [Duoneb 0.5 mg-3 mg/3 ml Soln] 3 ml INHALATION RT-TID 07/10/14 [History] Nitroglycerin Sl Tabs [Nitrostat] 0.4 mg SL Q5M PRN 07/10/14 [History] Omalizumab [Xolair] 300 mg SQ Q28D 07/10/14 [History] Tamsulosin HCl 0.4 mg PO DAILY 07/10/14 [History] traMADol HCl [Ultram] 50 mg PO BID 07/10/14 [History] Budesonide [Pulmicort] 0.5 mg INHALATION RT-BID 06/16/16 [History] Zafirlukast [Accolate] 20 mg PO BID 06/16/16 [History] Clopidogrel [Plavix] 75 mg PO DAILY 10/10/20 [History] Magnesium Oxide 400 mg PO DAILY 10/10/20 [History] Metoprolol Succinate [Toprol XL] 50 mg PO BID 10/10/20 [History] Multivitamins, Thera [Multivitamin (formulary)] 1 tab PO DAILY 02/06/21 [H istory] Atorvastatin Calcium [Lipitor] 80 mg PO DAILY 03/20/21 [History] Sacubitril/Valsartan [Entresto 24 mg-26 mg Tablet] 1 tab PO BID 05/12/21 [History] Evolocumab [Repatha Syringe] 140 mg SQ [id number] 09/30/23 [History] Ezetimibe [Zetia] 10 mg PO DAILY 09/30/23 [History] Spironolactone 12.5 mg PO DAILY #90 tablet 10/19/23 [Rx] Furosemide [Lasix] 40 mg PO DAILY #90 tablet 10/31/23 [Rx] Follow up Appointment(s)/Referral(s): Ryan Orozco MD [STAFF PHYSICIAN] - 1 Week (Please call and schedule hospital follow up when office reopens.) Nahid Naylor MD [Primary Care Provider] - 1-2 days (Please call and schedule hospital follow up appointment when office reopens.) Patient Instructions/Handouts: Implantable Cardioverter Defibrillator (DC) Activity/Diet/Wound Care/Special Instructions: PATIENT EDUCATION MATERIAL Instructions following a heart rhythm device implant. 1. Keep dressing DRY for 5 DAYS. You may cover the area with Saran or Cling Wrap, prior to a shower. 2. The dressing will be removed in the Device Clinic at [facility]. Absorbable sutures were used to close the wound. 3. Avoid raising the left arm above the shoulder level. 4 week restriction 4. Avoid arm movements, like backscratching, rubbing the head, or pulling on a cord. 4 weeks restriction 5. Gentle range of motion movements of the shoulder, closest to the incision should be performed to avoid a frozen shoulder. (Pendulum exercises of the shoulder) 6. The opposite arm may be used freely. 7. Avoid driving for 7 days. 8. Avoid activities such as golfing, swimming, weed whacking, lifting more than 10 pounds weight, bowling, gymnastics and weight training/lifting. (6 weeks restriction) 9. Activities such as wood chopping with an axe, pull-ups in the gymnasium, power lifting, arc-welding, being close to home induction cooktops will always be a problem. 10. Arm sling is only a reminder not to raise the arm above the head. You do not need to keep the arm completely immobilized. Your free to move the arm and use it and for normal activities. In case of any problems, please call [facility], @ [phone], Attention: Device Clinic Device clinic follow-up in 5 days Follow-up with primary office assistance in 2-3 months Discharge Disposition: HOME WITH HOME HEALTH SERVICES
[2023-11-01] MEDS ORDERED: VANCOMYCIN TROUGH DUE 1 EACH MISC MISCELLANE ONE (13:00)
--- NOTE | 2023-11-02 10:35 | CDI ---
Documentation Clarification Form Date: 11/02/2023 10:16:41 AM From: Rowena Solomon Admit Date: 10/26/2023 05:01:00 PM Patient Name: Cornelio Childers Visit Number: [id number] Discharge Date: 10/31/2023 06:04:00 PM ATTENTION: The Clinical Documentation Specialists (CDI) and [facility] Coding Staff appreciate your assistance in clarifying documentation. Please respond to the clarification below the line at the bottom and electronically sign. The CDI & [facility] Coding staff will review the response and follow-up if needed. Please note: Queries are made part of the Legal Health Record. If you have any questions, please contact the author of this message via ITS. Dr. Ryan Orozco, Your patient has the documented diagnosis of unspecified CHF in the H&P. Additional information regarding the type, acuity of CHF is requested. History/Risk Factors: HTN w heart failure, ischemic cardiomyopathy, CAD w stent & CABG, COPD, old [place], hx of cardiac arrest, former smoker Clinical Indicators: EF oc 20% per ID consult. VS/Pulse OX: T 98.0, P 69, R 18, BP 123/63, O2 95 BNP: not available Echocardiogram Results: none available 10/26 Chest X Ray: Cardiomegalyand mild pulmonary vascularcongestion. Correlate with BNP for congestive heart failure. Treatment: IV Lasix Home meds: Entresto 24mg-26mg po 1 tab BID, Spironolactone 12.5 po daily, Toprol xl 50 mg PO BID, Lasix 40 mg PO In your professional opinion, can you please clarify the acuity and type of CHF if known? [ ] Acute Systolic Heart Failure (reduced EF) [ xx ] Chronic Systolic Heart Failure (reduced EF) [ ] Acute on Chronic Systolic Heart Failure (reduced EF) [ ] Other, please specify [ ] Unable to determine MTDD
--- NOTE | 2023-11-07 11:54 | P.PN ---
Subjective Progress Note Date: 10/31/23 Principal diagnosis: Reason for follow-up is recurrent pacemaker wound dehiscence question of infection. Patient is a 73-year-old male with a past medical history significant for chronic congestive heart failure severe ischemic cardiomyopathy with a EF of 20% coronary artery disease s/p coronary bypass grafting and history of V-fib arrest requiring ICD implantation in the past patient recently did have upgrade to biventricular ICD on October 04, 2023 patient subsequently developing hematoma at the surgical site that was evacuated on 10/19/2023 and did have closure of the wound, with readmission to the hospital on 10/26/2023 with dehiscence of the wound the patient status post change of his pacemaker blood cultures obtained which has been negative ID consulted for home antibiotic therapy. On today's evaluation that is 10/31/2023, the patient continues to be afebrile patient is breathing comfortably on room air, patient denies having any chest pain shortness of breath or cough, the patient [place] nausea vomiting abdominal pain and denies having any drainage from the left chest wall pacemaker site. Patient white count is 8.1 creatinine 0.91 CRP is 2.4 as of 10/30/2023 cultures are negative Objective - Vital Signs Vital signs: Vital Signs Temp 97.5 F L 10/31/23 08:00 Pulse 68 10/31/23 08:44 Resp 18 10/31/23 08:00 BP 106/64 10/31/23 08:00 Pulse Ox 96 10/31/23 08:00 FiO2 Intake & Output 10/30/23 10/31/23 10/31/23 18:59 06:59 18:59 Intake Total 716 240 490 Balance 716 240 490 Weight 95.7 kg 95.7 kg Intake: Intake, IV Titration 250 Amount Vancomycin 1,500 mg In 250 Sodium Chloride 0.9% 250 ml @ 83.333 mls/hr IVPB Q16H [facility] Rx#:[id number] Oral 716 240 240 Other: Voiding Method Urinal Urinal Urinal # Voids 4 3 - Exam GENERAL DESCRIPTION: An elderly male lying in bed in no distress RESPIRATORY SYSTEM: Unlabored breathing , decreased breath sounds at bases HEART: S1 S2 regular rate and rhythm , left chest wall pacemaker site is dressed no drainage on the dressing ABDOMEN: Soft , no tenderness EXTREMITIES: No edema feet - Labs CBC & Chem 7: 10/30/23 09:19 10/31/23 07:41 Labs: Abnormal Lab Results - Last 24 Hours (Table) 10/31/23 Range/Units 07:41 Glucose 104 H (74-99) mg/dL Assessment and Plan (1) Pacemaker complications Status: Acute Code(s): T82.9XXA - UNSP COMP OF CARDIAC AND VASCULAR PROSTH DEV/GRFT, INIT SNOMED Code(s): 071375873 (2) Wound dehiscence Status: Acute Code(s): T81.30XA - DISRUPTION OF WOUND, UNSPECIFIED, INITIAL ENCOUNTER SNOMED Code(s): 230812312 Plan: 1patient seem to have a problem with bleeding at his ICD site that was initially switched to biventricular ICD on October 04, 2023 subsequent did have a did have a hematoma that was decorticated on 10/19/2023 and subsequently did have removal of the larger biventricular ICD and placement of a small left Medtronic ICD on 10/27/2022, patient did not have any fever no documentation of any purulence at the time of surgery for debridement and no cultures has been done clinically doubt infection as well as possible for this wound dehiscence and nonhealing 2Case discussed with the EP who placed the pacemaker concerned about the cont aminated environment and wanted the patient to be in the proximal right antibiotic for short course we will switch him over to Invanz and daptomycin for 7 days multiple question concern answered prescription provided to the field nurse case manager and close outpatient follow-up Dictation was produced using [employer] dictation software. please excuse any grammatical, word or spelling errors. Time with Patient: Less than 30
== END 2023-10-31 18:04 | disposition home health service (06) | DRG 908 ==
LOC: EC 16:24 → 3SCARD 17:01
PROVIDERS: ADMIT Internal Medicine Clinical Cardiac Electrophysiology; ATTEND Internal Medicine Clinical Cardiac Electrophysiology
PROC: 0JQ60ZZ Repair Chest Subcutaneous Tissue and Fascia, Open Approach (ICD-10-PCS; principal; 2023-10-27 08:25)
PROC: 0JH608Z Insertion of Defibrillator Generator into Chest Subcutaneous Tissue and Fascia, Open Approach (ICD-10-PCS; principal; 2023-10-27 08:25)
PROC: 0JPT0PZ Removal of Cardiac Rhythm Related Device from Trunk Subcutaneous Tissue and Fascia, Open Approach (ICD-10-PCS; principal; 2023-10-27 08:25)
PROC: 3E0102A Introduction of Anti-Infective Envelope into Subcutaneous Tissue, Open Approach (ICD-10-PCS; principal; 2023-10-27 08:25)
DX: T81.30XA Disruption of wound, unspecified, initial encounter (principal); I50.22 Chronic systolic (congestive) heart failure; I11.0 Hypertensive heart disease with heart failure; E78.5 Hyperlipidemia, unspecified; J44.9 Chronic obstructive pulmonary disease, unspecified; I25.5 Ischemic cardiomyopathy; I25.10 Atherosclerotic heart disease of native coronary artery without angina pectoris; I25.2 Old myocardial infarction; G47.30 Sleep apnea, unspecified; N40.0 Benign prostatic hyperplasia without lower urinary tract symptoms; Z79.51 Long term (current) use of inhaled steroids; Z79.02 Long term (current) use of antithrombotics/antiplatelets; Z79.891 Long term (current) use of opiate analgesic; Z79.899 Other long term (current) drug therapy; Z87.891 Personal history of nicotine dependence; Z86.74 Personal history of sudden cardiac arrest; Z95.1 Presence of aortocoronary bypass graft; Z87.442 Personal history of urinary calculi; Z85.828 Personal history of other malignant neoplasm of skin; Z95.5 Presence of coronary angioplasty implant and graft; Z89.021 Acquired absence of right finger(s); Y83.1 Surgical operation with implant of artificial internal device as the cause of abnormal reaction of the patient, or of later complication, without mention of misadventure at the time of the procedure
CPT/HCPCS: 33223; 33264; 36415; 71045; 71046; 80048; 80053; 80202; 82565; 83605; 85025; 85610; 85730; 86140; 87040; 93005; 94640; 96365; 96366; 96367; 96368; 96375; 99285

== ENCOUNTER 2023-11-23 14:49 | Inpatient (IN) | payer MEDICARE ==
[2023-11-23 16:24] LABS: HCT 38.2 % (39.0-53.0); HGB 12.4 gm/dL (13.0-17.5); MCH 33.4 pg (25.0-35.0); MCHC 32.3 g/dL (31.0-37.0); MCV 103.5 fL (80.0-100.0); Macrocytosis Slight; Platelet Count 224 k/uL (150-450); RBC 3.69 m/uL (4.30-5.90); RDW 12.4 % (11.5-15.5); WBC 8.6 k/uL (3.8-10.6)
[2023-11-23 16:32] LABS: Partial Thromboplastin Time 23.9 sec (22.0-30.0); Prothrombin Time 10.6 sec (10.0-12.5)
[2023-11-23 16:33] LABS: ALT 27 U/L (4-49); AST 36 U/L (17-59); African American GFR (CKD) 61 (>60 ml/min/1.73 sqM); Albumin 3.6 g/dL (3.5-5.0); Alkaline Phosphatase 123 U/L (38-126); Anion Gap 10 mmol/L; Blood Urea Nitrogen 21 mg/dL (9-20); Calcium 8.9 mg/dL (8.4-10.2); Carbon Dioxide 25 mmol/L (22-30); Chloride 101 mmol/L (98-107); Glucose 83 mg/dL (74-99); Non-African American GFR(CKD) 53 (>60 ml/min/1.73 sqM); Potassium 4.5 mmol/L (3.5-5.1); Sodium 136 mmol/L (137-145); Total Bilirubin 0.5 mg/dL (0.2-1.3); Total Protein 6.9 g/dL (6.3-8.2)
--- NOTE | 2023-11-23 16:46 | ED ---
General Adult HPI - General Chief complaint: Skin/Abscess/Foreign Body Stated complaint: Infected pacemaker Time Seen by Provider: 11/23/23 15:20 Source: patient Mode of arrival: wheelchair - History of Present Illness Initial comments: 73-year-old male presents emergency department under the direction of Dr. Hansen. Patient had a pacemaker placed back in September. The pacemaker ended up getting infected. Patient required PICC line with antibiotics. Pacemaker was replaced. He has been following with Dr. Chan and Dr. Hansen. Today Dr. Hansen sent the patient into the emergency department as he was concerned that the new pacemaker is now infected as well. Patient has redness and fluctuance over the site. No active drainage. Patient does state that the area is more tender. - Related Data Home Medications Medication Instructions Recorded Confirmed Ipratropium-Albuterol Nebulize 3 ml INHALATION RT-TID 07/10/14 11/23/23 [Duoneb 0.5 mg-3 mg/3 ml Soln] Nitroglycerin Sl Tabs [Nitrostat] 0.4 mg SL Q5M PRN 07/10/14 11/23/23 Omalizumab [Xolair] 300 mg SQ Q28D 07/10/14 11/23/23 Tamsulosin HCl 0.4 mg PO DAILY 07/10/14 11/23/23 traMADol HCl [Ultram] 50 mg PO BID 07/10/14 11/23/23 Budesonide [Pulmicort] 0.5 mg INHALATION RT-BID 06/16/16 11/23/23 Zafirlukast [Accolate] 20 mg PO BID 06/16/16 11/23/23 Clopidogrel [Plavix] 75 mg PO DAILY 10/10/20 11/23/23 Magnesium Oxide 400 mg PO DAILY 10/10/20 11/23/23 Metoprolol Succinate [Toprol XL] 50 mg PO BID 10/10/20 11/23/23 Multivitamins, Thera [Multivitamin 1 tab PO DAILY 02/06/21 11/23/23 (formulary)] Atorvastatin Calcium [Lipitor] 80 mg PO DAILY 03/20/21 11/23/23 Sacubitril/Valsartan [Entresto 24 1 tab PO BID 05/12/21 11/23/23 mg-26 mg Tablet] Evolocumab [Repatha Syringe] 140 mg SQ [id number] 09/30/23 11/23/23 Ezetimibe [Zetia] 10 mg PO DAILY 09/30/23 11/23/23 Sulfamethox-Tmp 800-160Mg [Bactrim 1 tab PO Q12HR 11/23/23 11/23/23 DS 800-160 mg] Previous Rx's Medication Instructions Recorded Spironolactone 12.5 mg PO DAILY #90 tablet 10/19/23 Furosemide [Lasix] 40 mg PO DAILY #90 tablet 10/31/23 Allergies Allergy/AdvReac Type Severity Reaction Status Date / Time No Known Allergies Allergy Verified 11/23/23 16:12 Review of Systems ROS Statement: Those systems with pertinent positive or pertinent negative responses have been documented in the HPI. ROS Other: All systems not noted in ROS Statement are negative. Past Medical History Past Medical History: Coronary Artery Disease (CAD), Cancer, Chest Pain / Angina, Heart Failure, COPD, Hyperlipidemia, Myocardial Infarction (non Q-wave), Prostate Disorder, Sleep Apnea/CPAP/BIPAP Additional Past Medical History / Comment(s): See Ernesto's H&P,PAST CARDIAC ARREST X3. HAS DUAL AICD. HX SKIN BASAL CELL CA ON BACK. HAS HX KIDNEY STONES. BPH. Last Myocardial Infarction Date:: 2010 History of Any Multi-Drug Resistant Organisms: None Reported Past Surgical History: AICD, Coronary Bypass/CABG, Heart Catheterization With Stent, Hernia Repair, Orthopedic Surgery, Pacemaker Additional Past Surgical History / Comment(s): LT Hip Surgery, 1969. LT INGUINAL HERNIA. LT ARM SX, HAS METAL PALLAVI INSIDE D/T VEIN HARVESTING. LT ELBOW SX(BURSA). STENTS X3, LAST 2006. QUAD CABG 2004. DUAL AICD 2008, & REWIRED 2009 - [facility]. TRAUMATIC AMP RT MIDDLE FINGERTIP,peripheral rt leg arterial stent Past Anesthesia/Blood Transfusion Reactions: No Reported Reaction Additional Past Anesthesia/Blood Transfusion Reaction / Comment(s): no hx of problems with prior blood transfusions Date of Last Stent Placement:: 2006 Type of Cardiac Device: Permanent Pacemaker, AICD Device Placement Date:: 2009 Past Psychological History: No Psychological Hx Reported Smoking Status: Former smoker Past Alcohol Use History: None Reported Past Drug Use History: None Reported - Past Family History Father Family Medical History: Myocardial Infarction ([place]) Additional Family Medical History / Comment(s): DAD AT AGE 72- [place] Mother Family Medical History: No Reported History Additional Family Medical History / Comment(s): MOM at age 93 General Exam General appearance: alert, in no apparent distress Head exam: Present: atraumatic, normocephalic, normal inspection Eye exam: Present: normal appearance, PERRL, EOMI. Absent: scleral icterus, conjunctival injection, periorbital swelling ENT exam: Present: normal exam, mucous membranes moist Neck exam: Present: normal inspection. Absent: tenderness, meningismus, lymphadenopathy Respiratory exam: Present: normal lung sounds bilaterally, chest wall tenderness (Incision over the left chest wall is erythematous and warm. There is a fluctuant area concerning for abscess). Absent: respiratory distress, wheezes, rales, rhonchi, stridor Cardiovascular Exam: Present: regular rate, normal rhythm, normal heart sounds. Absent: systolic murmur, diastolic murmur, rubs, gallop, clicks GI/Abdominal exam: Present: soft, normal bowel sounds. Absent: distended, tenderness, guarding, rebound, rigid Extremities exam: Present: normal inspection, full ROM, normal capillary refill. Absent: tenderness, pedal edema, joint swelling, calf tenderness Back exam: Present: normal inspection Neurological exam: Present: alert, oriented X3, CN II-XII intact Psychiatric exam: Present: normal affect, normal mood Skin exam: Present: warm, dry, intact, normal color. Absent: rash Course Vital Signs 11/23/23 11/23/23 11/23/23 15:17 15:34 15:55 Temperature 98 F Pulse Rate 60 89 Respiratory 18 16 Rate Blood Pressure 127/62 129/58 Blood Pressure [Left Arm Supine] O2 Sat by Pulse 96 98 97 Oximetry 11/23/23 11/23/23 11/23/23 18:19 18:38 20:00 Temperature Pulse Rate 57 L 57 L 60 Respiratory 20 18 20 Rate Blood Pressure 135/60 135/50 120/64 Blood Pressure [Left Arm Supine] O2 Sat by Pulse 98 98 96 Oximetry 11/23/23 11/24/23 11/24/23 21:00 01:00 02:00 Temperature Pulse Rate 62 60 60 Respiratory 18 18 17 Rate Blood Pressure 127/57 135/70 119/59 Blood Pressure [Left Arm Supine] O2 Sat by Pulse 93 L 95 95 Oximetry 11/24/23 11/24/23 11/24/23 06:06 07:37 08:42 Temperature 97.4 F L Pulse Rate 68 72 Respiratory 18 16 18 Rate Blood Pressure 132/69 147/75 Blood Pressure 126/69 [Left Arm Supine] O2 Sat by Pulse 95 98 95 Oximetry 11/24/23 11/24/23 11/24/23 10:00 11:00 12:10 Temperature Pulse Rate 79 70 71 Respiratory 18 19 Rate Blood Pressure 147/79 159/84 Blood Pressure [Left Arm Supine] O2 Sat by Pulse 96 94 L Oximetry 11/24/23 11/24/23 11/24/23 12:20 15:08 15:59 Temperature 99.2 F 97.5 F L Pulse Rate 72 75 75 Respiratory 17 18 Rate Blood Pressure 135/63 123/70 Blood Pressure [Left Arm Supine] O2 Sat by Pulse 98 97 Oximetry Medical Decision Making - Medical Decision Making Was pt. sent in by a medical professional or institution (, PA, BLOOD BANK CREDIT CLERK, urgent care, hospital, or detention...) When possible be specific @ -Dr. Hansen Did you speak to anyone other than the patient for history (EMS, parent, family, police, friend...)? What history was obtained from this source @ -Dr. Hansen Did you review nursing and triage notes (agree or disagree)? Why? @ -I reviewed and agree with nursing and triage notes Were old charts reviewed (outside hosp., previous admission, EMS record, old EKG, old radiological studies, urgent care reports/EKG's, detention records)? Report findings @ -No old charts were reviewed Differential Diagnosis (chest pain, altered mental status, abdominal pain women, abdominal pain men, vaginal bleeding, weakness, fever, dyspnea, syncope, h eadache, dizziness, GI bleed, back pain, seizure, CVA, palpatations, mental health, musculoskeletal)? @ -Cellulitis, abscess, MRSA EKG interpreted by me (3pts min.). @ -Demonstrates paced rhythm with a rate of 60. Pr interval 202. QRS 122. QTc of 465. No acute ST segment elevations or depressions X-rays interpreted by me (1pt min.). @ -None done CT interpreted by me (1pt min.). @ -None done U/S interpreted by me (1pt. min.). @ -None done What testing was considered but not performed or refused? (CT, X-rays, U/S, labs)? Why? @ -None What meds were considered but not given or refused? Why? @ -None Did you discuss the management of the patient with other professionals (professionals i.e. Dr., PA, BLOOD BANK CREDIT CLERK, lab, RT, psych nurse, community mental health social worker, furniture lumber production worker, teacher, transit authority police officer, registered nurse hh case manager)? Give summary @ -Spoke with Dr. Hansen and Dr. rodriguez Was smoking cessation discussed for >3mins.? @ -No Was critical care preformed (if so, how long)? @ -No Were there social determinants of health that impacted care today? How? (Homelessness, low income, unemployed, alcoholism, drug addiction, transportation, low edu. Level, literacy, decrease access to med. care, fci, rehab)? @ -No Was there de-escalation of care discussed even if they declined (Discuss DNR or withdrawal of care, Hospice)? DNR status @ -No What co-morbidities impacted this encounter? (DM, HTN, Smoking, COPD, CAD, Ca ncer, CVA, ARF, Chemo, Hep., AIDS, mental health diagnosis, sleep apnea, morbid obesity)? @ -Cardiomyopathy Was patient admitted / discharged? Hospital course, mention meds given and route, prescriptions, significant lab abnormalities, going to OR and other pertinent info. @ -Admitted. Upon arrival patient was placed into room 13. Thorough history and physical exam was performed. IV was established. Patient was initiated on antibiotics under the direction of Dr. Hansen. Blood cultures had been obtained. Patient admitted to Dr. rodriguez who accepted admission. Infectious disease and cardiology placed on consult. Undiagnosed new problem with uncertain prognosis? @ -No Drug Therapy requiring intensive monitoring for toxicity (Heparin, Nitro, Insulin, Cardizem)? @ -No Were any procedures done? @ -No Diagnosis/symptom? 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 @ -Acute Uncomplicated (without systemic symptoms) or Complicated (systemic symptoms)? @ -Complicated Side effects of treatment? @ -No Exacerbation, Progression, or Severe Exacerbation? @ -No Poses a threat to life or bodily function? How? (Chest pain, [place], [place], pneumonia, PE, COPD, DKA, ARF, appy, cholecystitis, CVA, Diverticulitis, Homicidal, Suicidal, threat to staff... and all critical care pts) @Yes as patient does have significant infection of his pacemaker - Lab Data Result diagrams: 11/25/23 07:48 11/25/23 07:48 Lab Results 11/23/23 11/23/23 11/23/23 Range/Units 15:51 15:51 15:52 WBC 8.6 (3.8-10.6) k/uL RBC 3.69 L (4.30-5.90) m/uL Hgb 12.4 L (13.0-17.5) gm/dL Hct 38.2 L (39.0-53.0) % MCV 103.5 H (80.0-100.0) fL MCH 33.4 (25.0-35.0) pg MCHC 32.3 (31.0-37.0) g/dL RDW 12.4 (11.5-15.5) % Plt Count 224 (150-450) k/uL MPV 8.0 Neutrophils % (Manual) 61 % Lymphocytes % (Manual) 27 % Monocytes % (Manual) 7 % Eosinophils % (Manual) 5 % Neutrophils # (Manual) 5.25 (1.3-7.7) k/uL Lymphocytes # (Manual) 2.32 (1.0-4.8) k/uL Monocytes # (Manual) 0.60 (0-1.0) k/uL Eosinophils # (Manual) 0.43 (0-0.7) k/uL Nucleated RBCs 0 (0-0) /100 WBC Manual Slide Review Performed Reactive Lymphocytes Present Macrocytosis Slight PT 10.6 (10.0-12.5) sec INR 1.0 (<1.2) APTT 23.9 (22.0-30.0) sec Sodium 136 L (137-145) mmol/L Potassium 4.5 (3.5-5.1) mmol/L Chloride 101 (98-107) mmol/L Carbon Dioxide 25 (22-30) mmol/L Anion Gap 10 mmol/L BUN 21 H (9-20) mg/dL Creatinine 1.33 H (0.66-1.25) mg/dL Est GFR (CKD-EPI)AfAm 61 (>60 ml/min/1.73 sqM) Est GFR (CKD-EPI)NonAf 53 (>60 ml/min/1.73 sqM) Glucose 83 (74-99) mg/dL Lactic Ac Sepsis Rflx Plasma Lactic Acid Eren (0.7-2.0) mmol/L Calcium 8.9 (8.4-10.2) mg/dL Total Bilirubin 0.5 (0.2-1.3) mg/dL AST 36 (17-59) U/L ALT 27 (4-49) U/L Alkaline Phosphatase 123 (38-126) U/L Troponin I (0.000-0.034) ng/mL C-Reactive Protein (<1.0) mg/dL Total Protein 6.9 (6.3-8.2) g/dL Albumin 3.6 (3.5-5.0) g/dL 11/23/23 11/23/23 11/23/23 Range/Units 15:52 15:52 15:57 WBC (3.8-10.6) k/uL RBC (4.30-5.90) m/uL Hgb (13.0-17.5) gm/dL Hct (39.0-53.0) % MCV (80.0-100.0) fL MCH (25.0-35.0) pg MCHC (31.0-37.0) g/dL RDW (11.5-15.5) % Plt Count (150-450) k/uL MPV Neutrophils % (Manual) % Lymphocytes % (Manual) % Monocytes % (Manual) % Eosinophils % (Manual) % Neutrophils # (Manual) (1.3-7.7) k/uL Lymphocytes # (Manual) (1.0-4.8) k/uL Monocytes # (Manual) (0-1.0) k/uL Eosinophils # (Manual) (0-0.7) k/uL Nucleated RBCs (0-0) /100 WBC Manual Slide Review Reactive Lymphocytes Macrocytosis PT (10.0-12.5) sec INR (<1.2) APTT (22.0-30.0) sec Sodium (137-145) mmol/L Potassium (3.5-5.1) mmol/L Chloride (98-107) mmol/L Carbon Dioxide (22-30) mmol/L Anion Gap mmol/L BUN (9-20) mg/dL Creatinine (0.66-1.25) mg/dL Est GFR (CKD-EPI)AfAm (>60 ml/min/1.73 sqM) Est GFR (CKD-EPI)NonAf (>60 ml/min/1.73 sqM) Glucose (74-99) mg/dL Lactic Ac Sepsis Rflx Plasma Lactic Acid Eren 4.4 H* (0.7-2.0) mmol/L Calcium (8.4-10.2) mg/dL Total Bilirubin (0.2-1.3) mg/dL AST (17-59) U/L ALT (4-49) U/L Alkaline Phosphatase (38-126) U/L Troponin I <0.012 (0.000-0.034) ng/mL C-Reactive Protein 0.8 (<1.0) mg/dL Total Protein (6.3-8.2) g/dL Albumin (3.5-5.0) g/dL 11/23/23 Range/Units 16:48 WBC (3.8-10.6) k/uL RBC (4.30-5.90) m/uL Hgb (13.0-17.5) gm/dL Hct (39.0-53.0) % MCV (80.0-100.0) fL MCH (25.0-35.0) pg MCHC (31.0-37.0) g/dL RDW (11.5-15.5) % Plt Count (150-450) k/uL MPV Neutrophils % (Manual) % Lymphocytes % (Manual) % Monocytes % (Manual) % Eosinophils % (Manual) % Neutrophils # (Manual) (1.3-7.7) k/uL Lymphocytes # (Manual) (1.0-4.8) k/uL Monocytes # (Manual) (0-1.0) k/uL Eosinophils # (Manual) (0-0.7) k/uL Nucleated RBCs (0-0) /100 WBC Manual Slide Review Reactive Lymphocytes Macrocytosis PT (10.0-12.5) sec INR (<1.2) APTT (22.0-30.0) sec Sodium (137-145) mmol/L Potassium (3.5-5.1) mmol/L Chloride (98-107) mmol/L Carbon Dioxide (22-30) mmol/L Anion Gap mmol/L BUN (9-20) mg/dL Creatinine (0.66-1.25) mg/dL Est GFR (CKD-EPI)AfAm (>60 ml/min/1.73 sqM) Est GFR (CKD-EPI)NonAf (>60 ml/min/1.73 sqM) Glucose (74-99) mg/dL Lactic Ac Sepsis Rflx Y Plasma Lactic Acid Eren (0.7-2.0) mmol/L Calcium (8.4-10.2) mg/dL Total Bilirubin (0.2-1.3) mg/dL AST (17-59) U/L ALT (4-49) U/L Alkaline Phosphatase (38-126) U/L Troponin I (0.000-0.034) ng/mL C-Reactive Protein (<1.0) mg/dL Total Protein (6.3-8.2) g/dL Albumin (3.5-5.0) g/dL Disposition Clinical Impression: Wound dehiscence, Pacemaker complications Disposition: ADMITTED IP TO THIS [facility] Condition: Stable Is patient prescribed a controlled substance at d/c from ED?: No Time of Disposition: 17:12 Decision to Admit Reason: Admit from EC Decision Date: 11/23/23 Decision Time: 17:12
[2023-11-23] MEDS ORDERED: NALOXONE 0.4 MG/ML 1 ML VIAL IV PRN (17:12)
[2023-11-23] MEDS: SODIUM CHLORIDE 0.9% 1,000 ML IV SCH (17:34)
[2023-11-23] MEDS: ERTAPENEM 1 GM in SODIUM CHLORIDE 0.9% 50 ML IVPB ONE (17:34)
[2023-11-23 17:58] LABS: Eosinophils # (M) 0.43 k/uL (0-0.7); Lymphocytes # (M) 2.32 k/uL (1.0-4.8); Neutrophils # (M) 5.25 k/uL (1.3-7.7); Neutrophils % (M) 61 %; Nucleated Red Blood Cells 0 /100 WBC (0-0); Total Cells Counted 100
[2023-11-23 17:59] LABS: Reactive Lymphocytes Present
[2023-11-23] MEDS: DAPTOmycin 500 MG in SODIUM CHLORIDE 0.9% 50 ML IVPB SCH (18:17)
[2023-11-24 07:15] LABS: Basophils % (A) 1 %; Eosinophils # (A) 0.3 k/uL (0-0.7); Eosinophils % (A) 4 %; HCT 38.2 % (39.0-53.0); HGB 12.5 gm/dL (13.0-17.5); Lymphocytes # (A) 1.6 k/uL (1.0-4.8); Lymphocytes % (A) 20 %; MCHC 32.7 g/dL (31.0-37.0); MCV 104.1 fL (80.0-100.0); Macrocytosis Slight; Mean Platelet Volume 7.9; Monocytes # (A) 0.5 k/uL (0-1.0); Monocytes % (A) 7 %; Neutrophils # (A) 4.9 k/uL (1.3-7.7); Neutrophils % (A) 64 %; Platelet Count 211 k/uL (150-450); RBC 3.67 m/uL (4.30-5.90); RDW 12.5 % (11.5-15.5); WBC 7.6 k/uL (3.8-10.6)
[2023-11-24 07:50] LABS: African American GFR (CKD) 78 (>60 ml/min/1.73 sqM); Anion Gap 4 mmol/L; Blood Urea Nitrogen 16 mg/dL (9-20); Calcium 8.7 mg/dL (8.4-10.2); Carbon Dioxide 26 mmol/L (22-30); Chloride 107 mmol/L (98-107); Glucose 86 mg/dL (74-99); Non-African American GFR(CKD) 67 (>60 ml/min/1.73 sqM); Potassium 4.6 mmol/L (3.5-5.1); Sodium 137 mmol/L (137-145)
[2023-11-24] MEDS ORDERED: NITROGLYCERIN SL TABS 0.4 MG TAB SUBLINGUAL PRN (09:47)
[2023-11-24] MEDS: traMADol 50 MG TAB PO SCH (10:31)
[2023-11-24] MEDS: TAMSULOSIN 0.4 MG CAP.ER.24H PO SCH (10:33)
[2023-11-24] MEDS: MAGNESIUM OXIDE 400 MG TAB PO SCH (10:33)
[2023-11-24] MEDS: METOPROLOL SUCCINATE (ER) 50 MG TAB.ER.24H PO SCH (10:33)
[2023-11-24] MEDS: SACUBITRIL/VALSARTAN 24 MG-26 MG TABLET PO SCH (10:35)
--- NOTE | 2023-11-24 12:00 | P.HPIM ---
History of Present Illness Patient is a pleasant 61-year-old male was sent in because of surgical site infection in the left upper chest wall over the pacemaker. Patient has induration as well as abscess which may need to be drained this recurrent infection patient had a pacemaker placed about a month ago after which she was treated for infection comes back again with increasing redness pain without any fever or leukocytosis found to have cellulitis as well as subcutaneous abscess. Patient does have history of congestive heart failure with EF of around 20% is complaining of some shortness of breath upon ambulation which has increased since his arrival to ER patient uses 40 mg of oral Lasix at home along with Entresto. Patient is on Bactrim at home. Patient serum creatinine is 1.09 REVIEW OF SYSTEMS: CONSTITUTIONAL: No fever, no malaise, no fatigue. HEENT: No recent visual problems or hearing problems. Denied any sore throat. CARDIOVASCULAR: No chest pain, PND, no palpitations, no syncope. PULMONARY: no cough, no hemoptysis. GASTROINTESTINAL: No diarrhea, no nausea, no vomiting, no abdominal pain. NEUROLOGICAL: No headaches, no weakness, no numbness. HEMATOLOGICAL: Denies any bleeding or petechiae. GENITOURINARY: Denies any burning micturition, frequency, or urgency. MUSCULOSKELETAL/RHEUMATOLOGICAL: Denies any joint pain, swelling, or any muscle pain. ENDOCRINE: Denies any polyuria or polydipsia. The rest of the 14-point review of systems is negative. PHYSICAL EXAMINATION: GENERAL: The patient is alert and oriented x3, not in any acute distress. Well developed, well nourished. HEENT: Pupils are round and equally reacting to light. EOMI. No scleral icterus. No conjunctival pallor. Normocephalic, atraumatic. No pharyngeal erythema. No thyromegaly. CARDIOVASCULAR: S1 and S2 present. No murmurs, rubs, or gallops. Mildly elevated JVD PULMONARY: Chest is clear to auscultation, no wheezing or crackles. ABDOMEN: Soft, nontender, nondistended, normoactive bowel sounds. No palpable organomegaly. MUSCULOSKELETAL: No joint swelling or deformity. EXTREMITIES: No cyanosis, clubbing, or pedal edema. NEUROLOGICAL: Gross neurological examination did not reveal any focal deficits. SKIN: Cellulitis, abscess, induration of the pacemaker site area on the left chest Assessment and plan -Abscess, cellulitis of the pacemaker site: Patient will need incision and drainage patient is presently on daptomycin and cefepime infectious disease evaluated the patient we will also obtain deep cultures -Congestive heart failure chronic systolic dysfunction severe ischemic cardiomyopathy EF of around 20% with mild acute exacerbation patient Will be given a dose of IV Lasix will be resumed on oral Lasix from tomorrow laboratory chest x-ray and a BNP. As mentioned above patient has an AICD -Coronary artery disease with cardiac catheterization and stents in the past -COPD without any acute exacerbation -Sleep apnea -Hyperlipidemia -Benign prostatic hypertrophy DVT prophylaxis: Subcutaneous heparin Past Medical History Past Medical History: Coronary Artery Disease (CAD), Cancer, Chest Pain / Angina, Heart Failure, COPD, Hyperlipidemia, Myocardial Infarction (non Q-wave), Prostate Disorder, Sleep Apnea/CPAP/BIPAP Additional Past Medical History / Comment(s): See Ernesto's H&P,PAST CARDIAC ARREST X3. HAS DUAL AICD. HX SKIN BASAL CELL CA ON BACK. HAS HX KIDNEY STONES. BPH. Last Myocardial Infarction Date:: 2010 History of Any Multi-Drug Resistant Organisms: None Reported Past Surgical History: AICD, Coronary Bypass/CABG, Heart Catheterization With Stent, Hernia Repair, Orthopedic Surgery, Pacemaker Additional Past Surgical History / Comment(s): LT Hip Surgery, 1968. LT INGUINAL HERNIA. LT ARM SX, HAS METAL PALLAVI INSIDE D/T VEIN HARVESTING. LT ELBOW SX([facility]SA). STENTS X3, LAST 2006. QUAD CABG 2004. DUAL AICD 2008, & REWIRED [address] - [facility]. TRAUMATIC AMP RT MIDDLE FINGERTIP,peripheral rt leg arterial stent Past Anesthesia/Blood Transfusion Reactions: No Reported Reaction Additional Past Anesthesia/Blood Transfusion Reaction / Comment(s): no hx of problems with prior blood transfusions Date of Last Stent Placement:: 2006 Type of Cardiac Device: Permanent Pacemaker, AICD Device Placement Date:: 2009 Past Psychological History: No Psychological Hx Reported Smoking Status: Former smoker Past Alcohol Use History: None Reported Past Drug Use History: None Reported - Past Family History Father Family Medical History: Myocardial Infarction ([place]) Additional Family Medical History / Comment(s): DAD AT AGE 72- [place] Mother Family Medical History: No Reported History Additional Family Medical History / Comment(s): MOM at age 93 Medications and Allergies Home Medications Medication Instructions Recorded Confirmed Type Ipratropium-Albuterol Nebulize 3 ml INHALATION RT-TID 07/10/14 11/23/23 History [Duoneb 0.5 mg-3 mg/3 ml Soln] Nitroglycerin Sl Tabs [Nitrostat] 0.4 mg SL Q5M PRN 07/10/14 11/23/23 History Omalizumab [Xolair] 300 mg SQ Q28D 07/10/14 11/23/23 History Tamsulosin HCl 0.4 mg PO DAILY 07/10/14 11/23/23 History traMADol HCl [Ultram] 50 mg PO BID 07/10/14 11/23/23 History Budesonide [Pulmicort] 0.5 mg INHALATION RT-BID 06/16/16 11/23/23 History Zafirlukast [Accolate] 20 mg PO BID 06/16/16 11/23/23 History Clopidogrel [Plavix] 75 mg PO DAILY 10/10/20 11/23/23 History Magnesium Oxide 400 mg PO DAILY 10/10/20 11/23/23 History Metoprolol Succinate [Toprol XL] 50 mg PO BID 10/10/20 11/23/23 History Multivitamins, Thera [Multivitamin 1 tab PO DAILY 02/06/21 11/23/23 History (formulary)] Atorvastatin Calcium [Lipitor] 80 mg PO DAILY 03/20/21 11/23/23 History Sacubitril/Valsartan [Entresto 24 1 tab PO BID 05/12/21 11/23/23 History mg-26 mg Tablet] Evolocumab [Repatha Syringe] 140 mg SQ [id number] 09/30/23 11/23/23 History Ezetimibe [Zetia] 10 mg PO DAILY 09/30/23 11/23/23 History Spironolactone 12.5 mg PO DAILY #90 tablet 10/19/23 11/23/23 Rx Furosemide [Lasix] 40 mg PO DAILY #90 tablet 10/31/23 11/23/23 Rx Sulfamethox-Tmp 800-160Mg [Bactrim 1 tab PO Q12HR 11/23/23 11/23/23 History DS 800-160 mg] Allergies Allergy/AdvReac Type Severity Reaction Status Date / Time No Known Allergies Allergy Verified 11/23/23 16:12 Physical Exam Vitals: Vital Signs Temp Pulse Resp BP Pulse Ox 11/24/23 10:00 79 18 147/79 96 11/24/23 08:42 72 18 147/75 95 11/24/23 06:06 68 18 132/69 95 11/24/23 02:00 60 17 119/59 95 11/24/23 01:00 60 18 135/70 95 11/23/23 21:00 62 18 127/57 93 L 11/23/23 20:00 60 20 120/64 96 11/23/23 18:38 57 L 18 135/50 98 11/23/23 18:19 57 L 20 135/60 98 11/23/23 15:55 89 16 129/58 97 11/23/23 15:34 98 11/23/23 15:17 98 F 60 18 127/62 96 Intake and Output 11/23/23 11/24/23 11/24/23 22:59 06:59 14:59 Other: Weight 97.522 kg Results CBC & Chem 7: 11/24/23 06:53 11/24/23 06:53 Labs: Abnormal Lab Results - Last 24 Hours (Table) 11/23/23 11/23/23 11/23/23 Range/Units 15:51 15:51 15:52 RBC 3.69 L (4.30-5.90) m/uL Hgb 12.4 L (13.0-17.5) gm/dL Hct 38.2 L (39.0-53.0) % MCV 103.5 H (80.0-100.0) fL Sodium 136 L (137-145) mmol/L BUN 21 H (9-20) mg/dL Creatinine 1.33 H (0.66-1.25) mg/dL Plasma Lactic Acid Eren 4.4 H* (0.7-2.0) mmol/L 11/24/23 Range/Units 06:53 RBC 3.67 L (4.30-5.90) m/uL Hgb 12.5 L (13.0-17.5) gm/dL Hct 38.2 L (39.0-53.0) % MCV 104.1 H (80.0-100.0) fL Sodium (137-145) mmol/L BUN (9-20) mg/dL Creatinine (0.66-1.25) mg/dL Plasma Lactic Acid Eren (0.7-2.0) mmol/L
[2023-11-24] MEDS: IPRATROPIUM-ALBUTEROL 3 ML NEB INHALATION SCH (12:09)
[2023-11-24] MEDS: BUDESONIDE 0.5 MG/2 ML NEBU INHALATION SCH (12:09)
--- NOTE | 2023-11-24 13:42 | XR ---
EXAMINATION TYPE: XR chest 1V DATE OF EXAM: 11/24/2023 12:01 PM CLINICAL INDICATION:Male, 73 years old with history of CHF; COMPARISON: Chest radiographs from 10/29/2023. TECHNIQUE: XR chest 1V Frontal view of the chest. FINDINGS: Lungs/Pleura: There is increased lucency of the lung apices. No evidence of pneumothorax, pleural eff usion or focal consolidation. Pulmonary vascularity: Pulmonary vascular congestion. Heart/mediastinum: Cardiomediastinal silhouette is enlarged and stable. Atherosclerotic calcificatio ns are seen in the aorta. Three lead cardiac conduction device overlying the left hemithorax with paige d tips projecting over the right ventricle, right atrium and coronary sinus. Musculoskeletal: No acute osseous pathology. Midline sternotomy wires are noted. IMPRESSION: 1. Cardiomegaly without evidence for acute heart failure. 2. COPD changes.
[2023-11-24] MEDS: EZETIMIBE 10 MG TAB PO SCH (14:15)
[2023-11-24] MEDS: OMALIZUMAB 150 MG SQ SCH (14:16)
[2023-11-24] MEDS: FUROSEMIDE 10 MG/ML 4 ML VIAL IV STA (14:21)
[2023-11-24] MEDS: ATORVASTATIN 80 MG TAB PO SCH (14:58)
--- NOTE | 2023-11-24 14:58 | P.CRDCN ---
History of Present Illness Consult date: 11/24/23 Consult reason: other (post op infection s/p pacer) Chief complaint: pacer site infection History of present illness: History of present illness: Patient is a pleasant 73-year-old male with significant past medical history of CAD, CHF, COPD, hyperlipidemia, ischemic cardiomyopathy with a EF of 20%, history of V-fib arrest requiring ICD implantation in the past and recent BiV upgrade ICD on 10/04/2023 and recent abscess/cellulitis of this pacemaker site who presents for wound infection. Patient sees Dr. Orozco in the office. He did develop a hematoma at the surgical site that was evacuated on 10/19/2023 and had close follow-up in the office. He did have wound dehiscence and was taken back to the OR on 10/26/2023 for removal of the previous biventricular ICD generator replaced. He has been followed by infectious disease and has been on IV and oral antibiotics. Patient reports that he had sutures out last week by Dr. Orozco. He states that he is scheduled to have the entire device and leads removed in [place] on December [address] Orozco. He saw infectious disease yesterday and was referred back to the ER for worsening redness and abscess at incision site. Patient reports that over the past 2 days the small abscess has been getting worse. He denies any fevers chills. Denies any nausea or vo miting. Denies any chest pain other than tenderness at the incision sites. He has occasional shortness of breath but this does improve with his breathing treatments. Denies any dizziness or syncope. Labs reviewed: Creatinine 1.09, potassium 4.6, sodium 137, troponin negative x 1, hemoglobin 12.5. REVIEW OF SYSTEMS: No fever or chills. No cough or expectoration. No diaphoresis. Patient denies headache, dizziness, blurred vision, double vision. Patient denies any stomach discomfort. No nausea, vomiting. No hematochezia. No hematemesis. Denies any black stools or blood in his stools. Denies dysuria or hematuria. No muscle weakness or numbness. No chest pain or pressure. PHYSICAL EXAMINATION: This is a 73-year-old male in no apparent distress at the time of my examination. HEENT: Head is atraumatic, normocephalic. Pupils are equal, round. Sclerae anicteric. Conjunctivae are clear. Mucous membranes of the mouth are moist. Neck is supple. There is no jugular venous distention. No carotid bruit is heard. CHEST EXAMINATION: Lungs are clear to auscultation. Left chest wall with redn ess and swelling at pacer surgical site with approximately 2 cm abscess. No active drainage. HEART EXAMINATION: Heart regular rate and rhythm. S1, S2 heard. No murmurs, gallops or rub. ABDOMEN: Soft, nontender. Bowel sounds are heard. EXTREMITIES: 2+ peripheral pulses with no evidence of peripheral edema and no calf tenderness noted. NEUROLOGIC EXAMINATION: Patient is awake, alert and oriented x3. IMPRESSION AND PLAN: Abscess/cellulitis of pacemaker site Chronic systolic heart failure, EF 20% Ischemic cardiomyopathy CAD COPD Hyperlipidemia PLAN: Continue with antibiotics as per infectious disease. Will discuss with Dr. Orozco and further management as per Dr. Orozco. I am dictating on behalf of Dr. Ilia Soriano's history/physical and assessment/plan. Past Medical History Past Medical History: Coronary Artery Disease (CAD), Cancer, Chest Pain / Angina, Heart Failure, COPD, Hyperlipidemia, Myocardial Infarction (non Q-wave), Prostate Disorder, Sleep Apnea/CPAP/BIPAP Additional Past Medical History / Comment(s): See Ernesto's H&P,PAST CARDIAC ARREST X3. HAS DUAL AICD. HX SKIN BASAL CELL CA ON BACK. HAS HX KIDNEY STONES. BPH. Last Myocardial Infarction Date:: 2010 History of Any Multi-Drug Resistant Organisms: None Reported Past Surgical History: AICD, Coronary Bypass/CABG, Heart Catheterization With Stent, Hernia Repair, Orthopedic Surgery, Pacemaker Additional Past Surgical History / Comment(s): LT Hip Surgery, 1969. LT INGUINAL HERNIA. LT ARM SX, HAS METAL PALLAVI INSIDE D/T VEIN HARVESTING. LT ELBOW SX(BURSA). STENTS X3, LAST 2006. QUAD CABG 2004. DUAL AICD 2008, & REWIRED 2010 - [facility]. TRAUMATIC AMP RT MIDDLE FINGERTIP,peripheral rt leg arterial stent Past Anesthesia/Blood Transfusion Reactions: No Reported Reaction Additional Past Anesthesia/Blood Transfusion Reaction / Comment(s): no hx of problems with prior blood transfusions Date of Last Stent Placement:: 2006 Type of Cardiac Device: Permanent Pacemaker, AICD Device Placement Date:: 2009 Past Psychological History: No Psychological Hx Reported Smoking Status: Former smoker Past Alcohol Use History: None Reported Past Drug Use History: None Reported - Past Family History Father Family Medical History: Myocardial Infarction ([place]) Additional Family Medical History / Comment(s): DAD AT AGE 72- [place] Mother Family Medical History: No Reported History Additional Family Medical History / Comment(s): MOM at age 93 Medications and Allergies Home Medications Medication Instructions Recorded Confirmed Type Ipratropium-Albuterol Nebulize 3 ml INHALATION RT-TID 07/10/14 11/23/23 History [Duoneb 0.5 mg-3 mg/3 ml Soln] Nitroglycerin Sl Tabs [Nitrostat] 0.4 mg SL Q5M PRN 07/10/14 11/23/23 History Omalizumab [Xolair] 300 mg SQ Q28D 07/10/14 11/23/23 History Tamsulosin HCl 0.4 mg PO DAILY 07/10/14 11/23/23 History traMADol HCl [Ultram] 50 mg PO BID 07/10/14 11/23/23 History Budesonide [Pulmicort] 0.5 mg INHALATION RT-BID 06/16/16 11/23/23 History Zafirlukast [Accolate] 20 mg PO BID 06/16/16 11/23/23 History Clopidogrel [Plavix] 75 mg PO DAILY 10/10/20 11/23/23 History Magnesium Oxide 400 mg PO DAILY 10/10/20 11/23/23 History Metoprolol Succinate [Toprol XL] 50 mg PO BID 10/10/20 11/23/23 History Multivitamins, Thera [Multivitamin 1 tab PO DAILY 02/06/21 11/23/23 History (formulary)] Atorvastatin Calcium [Lipitor] 80 mg PO DAILY 03/20/21 11/23/23 History Sacubitril/Valsartan [Entresto 24 1 tab PO BID 05/12/21 11/23/23 History mg-26 mg Tablet] Evolocumab [Repatha Syringe] 140 mg SQ [id number] 09/30/23 11/23/23 History Ezetimibe [Zetia] 10 mg PO DAILY 09/30/23 11/23/23 History Spironolactone 12.5 mg PO DAILY #90 tablet 10/19/23 11/23/23 Rx Furosemide [Lasix] 40 mg PO DAILY #90 tablet 10/31/23 11/23/23 Rx Sulfamethox-Tmp 800-160Mg [Bactrim 1 tab PO Q12HR 11/23/23 11/23/23 History DS 800-160 mg] Allergies Allergy/AdvReac Type Severity Reaction Status Date / Time No Known Allergies Allergy Verified 11/23/23 16:12 Physical Exam Vitals: Vital Signs Temp Pulse Resp BP Pulse Ox 11/24/23 12:20 72 11/24/23 12:10 71 11/24/23 11:00 70 19 159/84 94 L 11/24/23 10:00 79 18 147/79 96 11/24/23 08:42 72 18 147/75 95 11/24/23 06:06 68 18 132/69 95 11/24/23 02:00 60 17 119/59 95 11/24/23 01:00 60 18 135/70 95 11/23/23 21:00 62 18 127/57 93 L 11/23/23 20:00 60 20 120/64 96 11/23/23 18:38 57 L 18 135/50 98 11/23/23 18:19 57 L 20 135/60 98 11/23/23 15:55 89 16 129/58 97 11/23/23 15:34 98 11/23/23 15:17 98 F 60 18 127/62 96 Intake and Output 11/23/23 11/24/23 11/24/23 22:59 06:59 14:59 Other: Weight 97.522 kg Results 11/24/23 06:53 11/24/23 06:53 Cardiac Enzymes 11/23/23 11/23/23 Range/Units 15:51 15:52 AST 36 (17-59) U/L Troponin I <0.012 (0.000-0.034) ng/mL Coagulation 11/23/23 Range/Units 15:52 PT 10.6 (10.0-12.5) sec APTT 23.9 (22.0-30.0) sec CBC 11/23/23 11/24/23 Range/Units 15:51 06:53 WBC 8.6 7.6 (3.8-10.6) k/uL RBC 3.69 L 3.67 L (4.30-5.90) m/uL Hgb 12.4 L 12.5 L (13.0-17.5) gm/dL Hct 38.2 L 38.2 L (39.0-53.0) % Plt Count 224 211 (150-450) k/uL Comprehensive Metabolic Panel 11/23/23 11/24/23 Range/Units 15:51 06:53 Sodium 136 L 137 (137-145) mmol/L Potassium 4.5 4.6 (3.5-5.1) mmol/L Chloride 101 107 (98-107) mmol/L Carbon Dioxide 25 26 (22-30) mmol/L BUN 21 H 16 (9-20) mg/dL Creatinine 1.33 H 1.09 (0.66-1.25) mg/dL Glucose 83 86 (74-99) mg/dL Calcium 8.9 8.7 (8.4-10.2) mg/dL AST 36 (17-59) U/L ALT 27 (4-49) U/L Alkaline Phosphatase 123 (38-126) U/L Total Protein 6.9 (6.3-8.2) g/dL Albumin 3.6 (3.5-5.0) g/dL Current Medications Generic Name Dose Route Start Last Admin Trade Name Freq PRN Reason Stop Dose Admin Albuterol/Ipratropium 3 ml 11/24/23 09:48 11/24/23 12:09 Ipratropium-Albuterol 3 Ml Neb INHALATION 3 ml RT-TID PATO Administration Budesonide 0.5 mg 11/24/23 09:48 11/24/23 12:09 Budesonide 0.5 Mg/2 Ml Nebu INHALATION 0.5 mg RT-BID PATO Administration Clopidogrel Bisulfate 75 mg 11/25/23 09:00 Clopidogrel 75 Mg Tab PO DAILY PATO Ezetimibe 10 mg 11/24/23 10:00 11/24/23 14:15 Ezetimibe 10 Mg Tab PO Not Given DAILY PATO Furosemide 40 mg 11/25/23 09:00 Furosemide 40 Mg Tab PO DAILY PATO Heparin Sodium (Porcine) 5,000 unit 11/24/23 21:00 Heparin Sodium,Porcine 5,000 Unit/Ml 1 Ml Vial SQ Q12HR PATO Daptomycin 500 mg/ Sodium 50 mls @ 100 mls/hr 11/23/23 17:30 11/23/23 18:17 Chloride IVPB 100 mls/hr Q24HR@1730 PATO Administration Protocol Sodium Chloride 1,000 mls @ 75 mls/hr 11/23/23 17:30 11/24/23 08:34 Saline 0.9% IV 130 mls/hr .[id number] PATO Administration Cefepime HCl 2 gm/ Sodium 100 mls @ 25 mls/hr 11/24/23 16:00 Chloride IVPB Q8HR [facility] Protocol Magnesium Oxide 400 mg 11/24/23 10:00 11/24/23 10:33 Magnesium Oxide 400 Mg Tab PO 400 mg DAILY PATO Administration Metoprolol Succinate 50 mg 11/24/23 10:00 11/24/23 10:33 Metoprolol Succinate (Er) 50 Mg Tab.Er.24h PO 50 mg BID PATO Administration Montelukast Sodium 10 mg 11/24/23 21:00 Montelukast 10 Mg Tab PO HS [facility] Multivitamins 1 each 11/25/23 09:00 Multivitamins, Thera 1 Each Tab PO DAILY [facility] Naloxone HCl 0.2 mg 11/23/23 17:12 Naloxone 0.4 Mg/Ml 1 Ml Vial IV Q2M PRN Opioid Reversal Nitroglycerin 0.4 mg 11/24/23 09:47 Nitroglycerin Sl Tabs 0.4 Mg Tab SUBLINGUAL Q5M PRN Chest Pain Patient's Own ( 140 mg 12/08/23 09:00 Evolocumab [Repatha SQ Syringe] 140 Mg/Ml [id number] PATO Each) Patient's Own ( 300 mg 11/24/23 10:00 11/24/23 14:16 Omalizumab 150 Mg SQ Not Given Vial) Q28D [facility] Sacubitril/Valsartan 1 each 11/24/23 10:00 11/24/23 10:35 Sacubitril/Valsartan 24 Mg-26 Mg Tablet PO 1 each BID [facility] Administration Spironolactone 12.5 mg 11/25/23 09:00 Spironolactone 25 Mg Tab PO DAILY [facility] Tamsulosin HCl 0.4 mg 11/24/23 10:00 11/24/23 10:33 Tamsulosin 0.4 Mg Cap.Er.24h PO 0.4 mg DAILY [facility] Administration Tramadol HCl 50 mg 11/24/23 10:00 11/24/23 10:31 Tramadol 50 Mg Tab PO 50 mg BID PATO Administration Intake and Output 11/23/23 11/24/23 11/24/23 22:59 06:59 14:59 Other: Weight 97.522 kg 11/24/23 06:53 11/24/23 06:53
[2023-11-24] MEDS: CEFEPIME 2 GM in SODIUM CHLORIDE 0.9% 100 ML IVPB SCH (15:05)
[2023-11-24] MEDS: HEPARIN SODIUM,PORCINE 5,000 UNIT/ML 1 ML VIAL SQ SCH (21:32)
[2023-11-24] MEDS: MONTELUKAST 10 MG TAB PO SCH (21:33)
--- NOTE | 2023-11-24 22:10 | P.CONS ---
History of Present Illness - Reason for Consult Consult date: 11/24/23 Infected pacemaker site Requesting physician: Tanya Cano - Chief Complaint Swelling and redness to the pacemaker site x 1 week - History of Present Illness Patient is a 73-year-old male with a past medical history for coronary artery disease hyperlipidemia COPD [place] prostate disorder the patient did have a history of anemia and did have a pacemaker placement recently did have evacuation of hematoma at the surgical site subsequently did have a wound dehiscence and did have removal of the previous biventricular ICD generator replaced patient did receive prophylactic IV antibiotic therapy after discontinuation of his IV antibiotics patient developed erythema to the left chest wall and the patient was started on oral doxycycline however did have slight worsening subsequently antibiotics were switched to Bactrim DS on a follow-up visit in the office yesterday the patient was noticed to have increasing erythema to the left chest wall and a fluctuant area concerning for abscess Case was discussed with his flight test shop mechanic and the patient was advised admission to the hospital for drainage of this abscess and initiation of IV antibiotic therapy. Patient denies having any fever or any chills he did have some discomfort after left chest wall more of a dull aching mild in intensity without any radiation currently do not have any wound open area or any drainage on presentation to the hospital patient was afebrile he did have a low-grade fever of 99.2 this afternoon patient was not tachycardic hypotensive or hypoxic white count of 8.6 BUN/creatinine has been mildly elevated lactic acid was 4 point 4 repeat is normal liver enzymes are patient did have a blood culture done which are currently pending he received a dose of Invanz in the ER currently on vancomycin infectious disease was consulted for further management of antibiotic therapy Review of Systems Positive point and negatives has been mentioned in the HPI, complete review of systems was performed and all other systems are negative Past Medical History Past Medical History: Coronary Artery Disease (CAD), Cancer, Chest Pain / Angina, Heart Failure, COPD, Hyperlipidemia, Myocardial Infarction (non Q-wave), Prostate Disorder, Sleep Apnea/CPAP/BIPAP Additional Past Medical History / Comment(s): See Ernesto's H&P,PAST CARDIAC ARREST X3. HAS DUAL AICD. HX SKIN BASAL CELL CA ON BACK. HAS HX KIDNEY STONES. BPH. Last Myocardial Infarction Date:: 2010 History of Any Multi-Drug Resistant Organisms: None Reported Past Surgical History: AICD, Coronary Bypass/CABG, Heart Catheterization With Stent, Hernia Repair, Orthopedic Surgery, Pacemaker Additional Past Surgical History / Comment(s): LT Hip Surgery, 1969. LT INGUINAL HERNIA. LT ARM SX, HAS METAL PALLAVI INSIDE D/T VEIN HARVESTING. LT ELBOW SX([facility]). STENTS X3, LAST 2006. QUAD CABG 2004. DUAL AICD 2008, & REWIRED [address] - [facility]. TRAUMATIC AMP RT MIDDLE FINGERTIP,peripheral rt leg arterial stent Past Anesthesia/Blood Transfusion Reactions: No Reported Reaction Additional Past Anesthesia/Blood Transfusion Reaction / Comm: no hx of problems with prior blood transfusions Date of Last Stent Placement:: 2006 Type of Cardiac Device: Permanent Pacemaker, AICD Device Placement Date:: 2009 Past Psychological History: No Psychological Hx Reported Smoking Status: Former smoker Past Alcohol Use History: None Reported Past Drug Use History: None Reported - Past Family History Father Family Medical History: Myocardial Infarction ([place]) Additional Family Medical History / Comment(s): DAD AT AGE 72- [place] Mother Family Medical History: No Reported History Additional Family Medical History / Comment(s): MOM at age 93 Medications and Allergies Home Medications Medication Instructions Recorded Confirmed Type Ipratropium-Albuterol Nebulize 3 ml INHALATION RT-TID 07/10/14 11/23/23 History [Duoneb 0.5 mg-3 mg/3 ml Soln] Nitroglycerin Sl Tabs [Nitrostat] 0.4 mg SL Q5M PRN 07/10/14 11/23/23 History Omalizumab [Xolair] 300 mg SQ Q28D 07/10/14 11/23/23 History Tamsulosin HCl 0.4 mg PO DAILY 07/10/14 11/23/23 History traMADol HCl [Ultram] 50 mg PO BID 07/10/14 11/23/23 History Budesonide [Pulmicort] 0.5 mg INHALATION RT-BID 06/16/16 11/23/23 History Zafirlukast [Accolate] 20 mg PO BID 06/16/16 11/23/23 History Clopidogrel [Plavix] 75 mg PO DAILY 10/10/20 11/23/23 History Magnesium Oxide 400 mg PO DAILY 10/10/20 11/23/23 History Metoprolol Succinate [Toprol XL] 50 mg PO BID 10/10/20 11/23/23 History Multivitamins, Thera [Multivitamin 1 tab PO DAILY 02/06/21 11/23/23 History (formulary)] Atorvastatin Calcium [Lipitor] 80 mg PO DAILY 03/20/21 11/23/23 History Sacubitril/Valsartan [Entresto 24 1 tab PO BID 05/12/21 11/23/23 History mg-26 mg Tablet] Evolocumab [Repatha Syringe] 140 mg SQ [id number] 09/30/23 11/23/23 History Ezetimibe [Zetia] 10 mg PO DAILY 09/30/23 11/23/23 History Spironolactone 12.5 mg PO DAILY #90 tablet 10/19/23 11/23/23 Rx Furosemide [Lasix] 40 mg PO DAILY #90 tablet 10/31/23 11/23/23 Rx Sulfamethox-Tmp 800-160Mg [Bactrim 1 tab PO Q12HR 11/23/23 11/23/23 History DS 800-160 mg] Allergies Allergy/AdvReac Type Severity Reaction Status Date / Time No Known Allergies Allergy Verified 11/23/23 16:12 Physical Exam Vitals: Vital Signs Temp Pulse Resp BP Pulse Ox 11/24/23 10:00 79 18 147/79 96 11/24/23 08:42 72 18 147/75 95 11/24/23 06:06 68 18 132/69 95 11/24/23 02:00 60 17 119/59 95 11/24/23 01:00 60 18 135/70 95 11/23/23 21:00 62 18 127/57 93 L 11/23/23 20:00 60 20 120/64 96 11/23/23 18:38 57 L 18 135/50 98 11/23/23 18:19 57 L 20 135/60 98 11/23/23 15:55 89 16 129/58 97 11/23/23 15:34 98 11/23/23 15:17 98 F 60 18 127/62 96 Intake and Output 11/23/23 11/24/23 11/24/23 22:59 06:59 14:59 Other: Weight 97.522 kg GENERAL DESCRIPTION: Middle-aged male lying in bed, no distress. No tachypnea or accessory muscle of respiration use. HEENT: Shows Pallor , no scleral icterus. Oral mucous membrane is dry. No pharyngeal erythema or thrush NECK: Trachea central, no thyromegaly. LUNGS: Unlabored breathing. Clear to auscultation anteriorly. No wheeze or crackle. HEART: S1, S2, regular rate and rhythm. Left chest wall pacemaker site incision is currently intact did have surrounding swelling redness with a fluctuant area but no drainage tender to touch ABDOMEN: Soft, no tenderness , guarding or rigidity, no organomegaly EXTREMITIES: No edema of feet. SKIN: No rash, no masses palpable. NEUROLOGICAL: The patient is awake, alert, oriented x3, mood and affect normal. Results CBC & Chem 7: 11/25/23 07:48 11/25/23 07:48 Labs: Abnormal Lab Results - Last 24 Hours (Table) 11/23/23 11/23/23 11/23/23 Range/Units 15:51 15:51 15:52 RBC 3.69 L (4.30-5.90) m/uL Hgb 12.4 L (13.0-17.5) gm/dL Hct 38.2 L (39.0-53.0) % MCV 103.5 H (80.0-100.0) fL Sodium 136 L (137-145) mmol/L BUN 21 H (9-20) mg/dL Creatinine 1.33 H (0.66-1.25) mg/dL Plasma Lactic Acid Eren 4.4 H* (0.7-2.0) mmol/L 11/24/23 Range/Units 06:53 RBC 3.67 L (4.30-5.90) m/uL Hgb 12.5 L (13.0-17.5) gm/dL Hct 38.2 L (39.0-53.0) % MCV 104.1 H (80.0-100.0) fL Sodium (137-145) mmol/L BUN (9-20) mg/dL Creatinine (0.66-1.25) mg/dL Plasma Lactic Acid Eren (0.7-2.0) mmol/L Assessment and Plan (1) Cellulitis of chest wall Status: Acute Code(s): L03.313 - CELLULITIS OF CHEST WALL SNOMED Code(s): 38466197 (2) Abscess or cellulitis of chest wall Status: Acute Code(s): NCX1573 - SNOMED Code(s): 500272897 (3) Pacemaker complications Status: Acute Code(s): T82.9XXA - UNSP COMP OF CARDIAC AND VASCULAR PROSTH DEV/GRFT, INIT SNOMED Code(s): 437776058 Plan: 1patient with a left chest wall cellulitis at site of his pacemaker in this patient did have a history of multiple surgery to the left chest wall and removal of the previous generator however we do not have any culture data patient was empirically treated with daptomycin and Invanz afterwards on oral doxycycline and Bactrim DS however the patient did have worsening cellulitis and concerning for possible abscess 2-patient benefit from surgical drainage of this abscess fluid should be sent for culture 3-we will keep the patient on vancomycin pharmacy to dose and cefepime for gram- negative coverage Multiple question concern answered We will follow on clinical condition and cultures to further adjust medication if needed Thank you for this consultation we will follow the patient along with you Dictation was produced using [employer] dictation software. please excuse any grammatical, word or spelling errors. Time with Patient: Greater than 30
[2023-11-25 00:58] VITALS: RESP 18
[2023-11-25] MEDS: FUROSEMIDE 40 MG TAB PO SCH (08:02)
[2023-11-25] MEDS: CLOPIDOGREL 75 MG TAB PO SCH (08:03)
[2023-11-25] MEDS: SPIRONOLACTONE 25 MG TAB PO SCH (08:03)
[2023-11-25] MEDS: MULTIVITAMINS, THERA 1 EACH TAB PO SCH (08:03)
[2023-11-25 08:11] VITALS: TEMP 98
[2023-11-25 08:47] LABS: HCT 36.2 % (39.0-53.0); HGB 11.9 gm/dL (13.0-17.5); Hypochromasia Slight; MCH 34.3 pg (25.0-35.0); MCHC 32.8 g/dL (31.0-37.0); MCV 104.5 fL (80.0-100.0); Macrocytosis Slight; Platelet Count 206 k/uL (150-450); RBC 3.47 m/uL (4.30-5.90); RDW 12.5 % (11.5-15.5); WBC 8.4 k/uL (3.8-10.6)
--- NOTE | 2023-11-25 08:51 | P.PN ---
Subjective Progress Note Date: 11/25/23 Contacted [facility] transfer team and spoke with Mariel. Arrangements made for patient to be transferred to [facility] on the telemetry unit. Dr. Orozco has spoke with Dr. Mccall and accepted the patient. He was previously scheduled for procedure on December [address] Barajas. Accepting physician was Dr. Jose Alejandro Monroy. No beds are currently available but asked back to have 1 soon. States she has been faxed to Mariel. Attending and patient's nurse updated. Objective - Vital Signs Vital signs: Vital Signs Temp 98.0 F 11/25/23 07:57 Pulse 70 11/25/23 08:38 Resp 18 11/25/23 07:57 BP 130/63 11/25/23 07:57 Pulse Ox 93 L 11/25/23 07:57 FiO2 Intake & Output 11/24/23 11/25/23 11/25/23 18:59 06:59 18:59 Intake Total 240 Balance 240 Weight 97.522 kg Intake: Oral 240 Other: Voiding Method Toilet Toilet - Labs CBC & Chem 7: 11/24/23 06:53 11/24/23 06:53 Labs: Microbiology - Last 24 Hours (Table) 11/23/23 15:45 Blood Culture - Preliminary Blood 11/23/23 15:50 Blood Culture - Preliminary Blood
[2023-11-25 09:00] LABS: African American GFR (CKD) 73 (>60 ml/min/1.73 sqM); Anion Gap 5 mmol/L; Blood Urea Nitrogen 17 mg/dL (9-20); Calcium 8.6 mg/dL (8.4-10.2); Carbon Dioxide 28 mmol/L (22-30); Chloride 105 mmol/L (98-107); Glucose 101 mg/dL (74-99); Non-African American GFR(CKD) 63 (>60 ml/min/1.73 sqM); Potassium 4.4 mmol/L (3.5-5.1); Sodium 138 mmol/L (137-145)
[2023-11-25 11:42] VITALS: BP 135/62; PULSE 72
--- NOTE | 2023-11-25 12:37 | P.DS ---
Providers Date of admission: 11/23/23 17:12 Expected date of discharge: 11/25/23 Attending physician: Zarina Ernandez MD Consults: 11/23/23 17:12 Consult Physician Urgent Consulting Provider: [facility] Consult Reason/Comments: pacemaker site infection Do you want consulting provider notified?: Yes 11/23/23 17:16 Consult Physician Urgent Consulting Provider: Tien Hansen Consult Reason/Comments: infected pacemaker site Do you want consulting provider notified?: Already Contacted Primary care physician: [facility] Course: Final diagnosis -Abscess, cellulitis of the pacemaker site, present on admission -Congestive heart failure chronic systolic dysfunction severe ischemic cardiomyopathy EF of around 20% with mild acute exacerbation -Coronary artery disease with cardiac catheterization and stents in the past -COPD without any acute exacerbation -Sleep apnea -Hyperlipidemia -Benign prostatic hypertrophy -DVT prophylaxis -GI prophylaxis -full code Discharge disposition Patient is being transferred in a stable condition with guarded prognosis to [facility]. Patient has been accepted by Dr. Mccall cardiology and accepting physician will be Dr. Jose Alejandro Monroy at [facility]. Total time taken is greater than 35 minutes. Hospital course This is a 73-year-old male who was recently admitted with concerns of surgical site infection of the left upper chest wall over the pacemaker. Patient has an abscess and recurrent infection that has been ongoing over the last month although patient started experiencing increasing redness with pain and cellulitis. Cardiology evaluated the patient recommending transfer to tertiary treatment center and patient has been accepted at [facility]. Patient currently maintained on antibiotics. Currently no reports of chest pain, shortness of breath, or palpitations. Patient is afebrile. No reports of nausea or vomiting and patient is tolerating diet. Patient will be transferred to [facility] today and patient has received a bed. Physical exam: Gen: This is a 73-year-old male who is awake, alert and oriented x 3, well- developed, well-nourished, obese HEENT: Head is atraumatic, normocephalic. Pupils equal, round. Sclerae is anicteric. NECK: Supple. No JVD. No lymphadenopathy. No thyromegaly. LUNGS: Clear to auscultation. No wheezes or rhonchi. No intercostal retractions. HEART: Regular rate and rhythm. No murmur. ABDOMEN: Soft. Bowel sounds are present. No masses. No tenderness. EXTREMITIES: No pedal edema. No calf tenderness. NEUROLOGICAL: Patient is awake, alert and oriented x3. Cranial nerves 2 through 12 are grossly intact. Please refer to medication reconciliation sheet for a list of medications. The impression and plan of care has been dictated by Nava Smith, Nurse Practitioner as directed. Dr. Stefany MD I have performed a history and examination and MDM of this patient, discussed the same with the dictator, and agree with the dictator's assessment and plan as written ,documented as a scribe. Based on total visit time, I have performed more than 50% of the visit. Patient Condition at Discharge: Stable Plan - Discharge Summary Discharge Rx Participant: No New Discharge Prescriptions: No Action traMADol HCl [Ultram] 50 mg PO BID Tamsulosin HCl 0.4 mg PO DAILY Omalizumab [Xolair] 300 mg SQ Q28D Nitroglycerin Sl Tabs [Nitrostat] 0.4 mg SL Q5M PRN PRN Reason: Chest Pain Ipratropium-Albuterol Nebulize [Duoneb 0.5 mg-3 mg/3 ml Soln] 3 ml INHALATION RT-TID Zafirlukast [Accolate] 20 mg PO BID Budesonide [Pulmicort] 0.5 mg INHALATION RT-BID Clopidogrel [Plavix] 75 mg PO DAILY Magnesium Oxide 400 mg PO DAILY Metoprolol Succinate [Toprol XL] 50 mg PO BID Multivitamins, Thera [Multivitamin (formulary)] 1 tab PO DAILY Evolocumab [Repatha Syringe] 140 mg SQ [id number] Furosemide [Lasix] 40 mg PO DAILY #90 tablet Sulfamethox-Tmp 800-160Mg [Bactrim DS 800-160 mg] 1 tab PO Q12HR Atorvastatin Calcium [Lipitor] 80 mg PO DAILY Sacubitril/Valsartan [Entresto 24 mg-26 mg Tablet] 1 tab PO BID Ezetimibe [Zetia] 10 mg PO DAILY Spironolactone 12.5 mg PO DAILY #90 tablet Discharge Medication List Ipratropium-Albuterol Nebulize [Duoneb 0.5 mg-3 mg/3 ml Soln] 3 ml INHALATION RT-TID 07/10/14 [History] Nitroglycerin Sl Tabs [Nitrostat] 0.4 mg SL Q5M PRN 07/10/14 [History] Omalizumab [Xolair] 300 mg SQ Q28D 07/10/14 [History] Tamsulosin HCl 0.4 mg PO DAILY 07/10/14 [History] traMADol HCl [Ultram] 50 mg PO BID 07/10/14 [History] Budesonide [Pulmicort] 0.5 mg INHALATION RT-BID 06/16/16 [History] Zafirlukast [Accolate] 20 mg PO BID 06/16/16 [History] Clopidogrel [Plavix] 75 mg PO DAILY 10/10/20 [History] Magnesium Oxide 400 mg PO DAILY 10/10/20 [History] Metoprolol Succinate [Toprol XL] 50 mg PO BID 10/10/20 [History] Multivitamins, Thera [Multivitamin (formulary)] 1 tab PO DAILY 02/06/21 [History] Atorvastatin Calcium [Lipitor] 80 mg PO DAILY 03/20/21 [History] Sacubitril/Valsartan [Entresto 24 mg-26 mg Tablet] 1 tab PO BID 05/12/21 [History] Evolocumab [Repatha Syringe] 140 mg SQ [id number] 09/30/23 [History] Ezetimibe [Zetia] 10 mg PO DAILY 09/30/23 [History] Spironolactone 12.5 mg PO DAILY #90 tablet 10/19/23 [Rx] Furosemide [Lasix] 40 mg PO DAILY #90 tablet 10/31/23 [Rx] Sulfamethox-Tmp 800-160Mg [Bactrim DS 800-160 mg] 1 tab PO Q12HR 11/23/23 [History] Follow up Appointment(s)/Referral(s): Nahid Naylor MD [Primary Care Provider] - 1-2 days
--- NOTE | 2023-11-25 15:10 | P.PN ---
Subjective Progress Note Date: 11/25/23 Consult reason: other (post op infection s/p pacer) Chief complaint: pacer site infection History of present illness: History of present illness: Patient is a pleasant 73-year-old male with significant past medical history of CAD, CHF, COPD, hyperlipidemia, ischemic cardiomyopathy with a EF of 20%, history of V-fib arrest requiring ICD implantation in the past and recent BiV upgrade ICD on 10/04/2023 and recent abscess/cellulitis of this pacemaker site who presents for wound infection. Patient sees Dr. Orozco in the office. He did develop a hematoma at the surgical site that was evacuated on 10/19/2023 and had close follow-up in the office. He did have wound dehiscence and was taken back to the OR on 10/26/2023 for removal of the previous biventricular ICD generator replaced. He has been followed by infectious disease and has been on IV and oral antibiotics. Patient reports that he had sutures out last week by Manish Orozco. He states that he is scheduled to have the entire device and leads removed in [place] on December [address] Orozco. He saw infectious disease yesterday and was referred back to the ER for worsening redness and abscess at incision site. Patient reports that over the past 2 days the small abscess has been getting worse. He denies any fevers chills. Denies any nausea or vomiting. Denies any chest pain other than tenderness at the incision sites. He has occasional shortness of breath but this does improve with his breathing treatments. Denies any dizziness or syncope. Labs reviewed: Creatinine 1.09, potassium 4.6, sodium 137, troponin negative x 1, hemoglobin 12.5. 2/2 This case has been reviewed by Dr. Orozco and he has been in contact with Dr. Barajas at [facility]. He is an integrity specialist. Arrangements have completed for the patient to be transferred. This has been discussed with the patient and his at the bedside as well as his daughter on the phone. Patient will be transferred once all arrangements are completed. Attending has been updated. WBC 8.4, hemoglobin 9.9, platelet count 209. Electrolytes and renal function are normal. Blood pressure 135/62, heart rate in the 60s. PHYSICAL EXAMINATION: This is a 73-year-old male in no apparent distress at the time of my examination. HEENT: Head is atraumatic, normocephalic. Pupils are equal, round. Sclerae anicteric. Conjunctivae are clear. Mucous membranes of the mouth are moist. Neck is supple. There is no jugular venous distention. No carotid bruit is heard. CHEST EXAMINATION: Lungs are clear to auscultation. Left chest wall with redness and swelling at pacer surgical site with approximately 2 cm abscess. No active drainage. HEART EXAMINATION: Heart regular rate and rhythm. S1, S2 heard. No murmurs, gallops or rub. ABDOMEN: Soft, nontender. Bowel sounds are heard. EXTREMITIES: 2+ peripheral pulses with no evidence of peripheral edema and no calf tenderness noted. NEUROLOGIC EXAMINATION: Patient is awake, alert and oriented x3. IMPRESSION AND PLAN: Abscess/cellulitis of pacemaker site Chronic systolic heart failure, EF 20% Ischemic cardiomyopathy CAD COPD Hyperlipidemia PLAN: Continue with antibiotics as per infectious disease. Arrangements made for patient to transfer to [facility]. I am dictating on behalf of Dr. Ilia Soriano's history/physical and assessment/plan. Objective - Vital Signs Vital signs: Vital Signs Temp 98.0 F 11/25/23 07:57 Pulse 72 11/25/23 11:32 Resp 18 11/25/23 11:21 BP 135/62 11/25/23 11:21 Pulse Ox 98 11/25/23 11:21 FiO2 Intake & Output 11/24/23 11/25/23 11/25/23 18:59 06:59 18:59 Intake Total 240 200 Balance 240 200 Weight 97.522 kg Intake: Oral 240 200 Other: Voiding Method Toilet Toilet Toilet - Labs CBC & Chem 7: 11/25/23 07:48 11/25/23 07:48 Labs: Abnormal Lab Results - Last 24 Hours (Table) 11/25/23 11/25/23 Range/Units 07:48 07:48 RBC 3.47 L (4.30-5.90) m/uL Hgb 11.9 L (13.0-17.5) gm/dL Hct 36.2 L (39.0-53.0) % MCV 104.5 H (80.0-100.0) fL Glucose 101 H (74-99) mg/dL Microbiology - Last 24 Hours (Table) 11/23/23 15:45 Blood Culture - Preliminary Blood 11/23/23 15:50 Blood Culture - Preliminary Blood
--- NOTE | 2023-11-25 15:11 | P.PN ---
Subjective Progress Note Date: 11/25/23 Principal diagnosis: Reason for follow-up is left chest wall cellulitis pacemaker site infection Patient is a 73-year-old male with a past medical history for coronary artery disease hyperlipidemia COPD ND prostate disorder the patient did have a history of anemia and did have a pacemaker placement recently did have evacuation of hematoma at the surgical site subsequently did have a wound dehiscence and did have removal of the previous biventricular ICD generator r eplaced patient did receive prophylactic IV antibiotic therapy, subsequent developing cellulitis to the left chest wall treated with outpatient oral doxycycline followed by Bactrim with a follow-up visit suspicious for possible abscess formation for the patient was admitted to the hospital. On today's evaluation that is 11/25/2023, the patient continues to be afebrile patient is currently breathing comfortably on room air not requiring any oxygen, the patient denies having any worsening pain to the left side of the chest or any worsening redness, and no drainage shortness of breath or cough, the patient denies nausea vomiting no abdominal pain no diarrhea. Patient white count is 8.4, creatinine is 1.15 blood cultures currently pending Objective - Vital Signs Vital signs: Vital Signs Temp 98.0 F 11/25/23 07:57 Pulse 70 11/25/23 09:33 Resp 18 11/25/23 09:33 BP 130/63 11/25/23 07:57 Pulse Ox 93 L 11/25/23 07:57 FiO2 Intake & Output 11/24/23 11/25/23 11/25/23 18:59 06:59 18:59 Intake Total 240 200 Balance 240 200 Weight 97.522 kg Intake: Oral 240 200 Other: Voiding Method Toilet Toilet Toilet - Exam GENERAL DESCRIPTION: An elderly male lying in bed in no distress RESPIRATORY SYSTEM: Unlabored breathing , decreased breath sounds at bases HEART: S1 S2 regular rate and rhythm , left chest wall did have area of swelling redness induration slightly decreased no drainage ABDOMEN: Soft , no tenderness EXTREMITIES: No edema feet - Labs CBC & Chem 7: 11/25/23 07:48 11/25/23 07:48 Labs: Abnormal Lab Results - Last 24 Hours (Table) 11/25/23 11/25/23 Range/Units 07:48 07:48 RBC 3.47 L (4.30-5.90) m/uL Hgb 11.9 L (13.0-17.5) gm/dL Hct 36.2 L (39.0-53.0) % MCV 104.5 H (80.0-100.0) fL Glucose 101 H (74-99) mg/dL Microbiology - Last 24 Hours (Table) 11/23/23 15:45 Blood Culture - Preliminary Blood 11/23/23 15:50 Blood Culture - Preliminary Blood Assessment and Plan (1) Abscess or cellulitis of chest wall Status: Acute Code(s): [id number] - SNOMED Code(s): 730176215 (2) Cellulitis of chest wall Status: Acute Code(s): L03.313 - CELLULITIS OF CHEST WALL SNOMED Code(s): 29593180 Plan: 1patient with a left chest wall cellulitis at site of his pacemaker in this patient did have a history of multiple surgery to the left chest wall and removal of the previous generator however we do not have any culture data patient was empirically treated with daptomycin and Invanz afterwards on oral doxycycline and Bactrim DS however the patient did have worsening cellulitis and concerning for possible abscess 2-patient benefit from surgical drainage of this abscess for the patient is currently being transferred to a [facility] for further management 3-we will keep the patient on vancomycin pharmacy to dose and cefepime till the patient is evaluated by ID service at that facility at the bedside multiple questions were answered Dictation was produced using [employer] dictation software. please excuse any grammatical, word or spelling errors. Time with Patient: Less than 30
[2023-11-25] MEDS ORDERED: CEFEPIME 2 GM in SODIUM CHLORIDE 0.9% 100 ML IVPB SCH (21:00)
[2023-12-08] MEDS ORDERED: EVOLOCUMAB 140 MG/ML SQ SCH (09:00)
== END 2023-11-25 13:34 | disposition short-term general hospital (02) | DRG 862 ==
LOC: EC 14:49 → 3SCARD 17:12
PROVIDERS: ADMIT Internal Medicine; ATTEND Internal Medicine
DX: T81.41XA Infection following a procedure, superficial incisional surgical site, initial encounter (principal); I50.33 Acute on chronic diastolic (congestive) heart failure; L03.313 Cellulitis of chest wall; Y84.8 Other medical procedures as the cause of abnormal reaction of the patient, or of later complication, without mention of misadventure at the time of the procedure; I11.0 Hypertensive heart disease with heart failure; I25.5 Ischemic cardiomyopathy; I25.10 Atherosclerotic heart disease of native coronary artery without angina pectoris; Z95.810 Presence of automatic (implantable) cardiac defibrillator; E78.5 Hyperlipidemia, unspecified; G47.30 Sleep apnea, unspecified; I25.2 Old myocardial infarction; Z86.74 Personal history of sudden cardiac arrest; N40.0 Benign prostatic hyperplasia without lower urinary tract symptoms; J44.9 Chronic obstructive pulmonary disease, unspecified; Y83.1 Surgical operation with implant of artificial internal device as the cause of abnormal reaction of the patient, or of later complication, without mention of misadventure at the time of the procedure; Z79.899 Other long term (current) drug therapy; Z79.02 Long term (current) use of antithrombotics/antiplatelets; Z82.49 Family history of ischemic heart disease and other diseases of the circulatory system; Z85.828 Personal history of other malignant neoplasm of skin; Z87.442 Personal history of urinary calculi; Z95.1 Presence of aortocoronary bypass graft
CPT/HCPCS: 36415; 71045; 80048; 80053; 83605; 83880; 84484; 85025; 85027; 85610; 85730; 86140; 87040; 87324; 93005; 94640; 96361; 96365; 96367; 96368; 96375; 99285